=== PATIENT | male | born 1950 | race Caucasian/White ===

== ENCOUNTER 2017-05-14 10:03 | Inpatient (IN) | payer OTHER, MEDICARE ==
[2017-05-14] VITALS (10 sets, daily range): BP systolic 140–175; BP diastolic 68–91; PULSE 52–66; RESP 17–20; TEMP 97.6–98.1; O2SAT 96–99
[~2017-05-14] VITALS: Ht 172.7 cm; Wt 81.2 kg
[2017-05-14] MEDS ORDERED: BUPR100T4 PO (10:21)
[2017-05-14] MEDS ORDERED: SYMB160A INH (10:24)
--- NOTE | 2017-05-14 11:09 | PD ---
HPI Chief Complaint: Syncope/Near-Syncope Time Seen by Provider: 10:41 Travel History International Travel<30 days: No Contact w/Intl Traveler<30days: No Traveled to known affect area: No History of Present Illness HPI 67yo M with PMH of COPD presents to the ED with syncopal episode today. Pt said he felt sob and lightheaded so he went to get his symbicort but next thing he knew he woke up on the floor. His said he passed out and wanted to call ambulance but he refused. Then it happened again and he passed out and said he was shaking a little before he went down. Then he agreed to go to the ED. Pt has been having these episodes of lightheadedness that would last 30 seconds and was told to follow up with rodbuster but has not done so. Denies any fever, chest pain, n/v, abdominal pain, focal weakness or numbness. Pt does not feel sob right now. PFSH Past Medical History COPD: Yes Social History Alcohol Use: Yes Tobacco Use: Yes (5 per day) Substance Use: No Allergies-Medications (Allergen,Severity, Reaction): Coded Allergies: No Known Allergies (Unverified , 05/14/17) Reported Meds & Prescriptions Reported Meds & Active Scripts Active Reported Symbicort Inh (Budesonide/Formoterol Fumarate) 160-4.5 Mcg/Act Aero 1 Puff INH Q12HR Bupropion HCl 100 Mg Tab 300 Mg PO DAILY Review of Systems Except as stated in HPI: all other systems reviewed are Neg Physical Exam Narrative GENERAL: 67yo M not in distress. SKIN: Focused skin assessment warm/dry. HEAD: Atraumatic. Normocephalic. EYES: Pupils equal and round. No scleral icterus. No injection or drainage. ENT: No nasal bleeding or discharge. Mucous membranes pink and moist. NECK: Trachea midline. No JVD. CARDIOVASCULAR: Irregular with frequent pauses. No murmur. RESPIRATORY: No accessory muscle use. Clear to auscultation. Breath sounds equal bilaterally. GASTROINTESTINAL: Abdomen soft, non-tender, nondistended. Hepatic and splenic margins not palpable. MUSCULOSKELETAL: No obvious deformities. No clubbing. No cyanosis. No edema. NEUROLOGICAL: Awake and alert. No obvious cranial nerve deficits. Motor grossly within normal limits. Normal speech. PSYCHIATRIC: Appropriate mood and affect; insight and judgment normal. Data Data Last Documented VS Vital Signs Date Time Temp Pulse Resp B/P (MAP) Pulse Ox O2 Delivery O2 Flow Rate FiO2 05/14/17 12:20 66 19 165/79 (107) 98 Nasal Cannula 2.00 Orders Orders Electrocardiogram (05/14/17 10:54) Basic Metabolic Panel (Bmp) (05/14/17 10:54) Complete Blood Count With Diff (05/14/17 10:54) Magnesium (Mg) (05/14/17 10:54) Ckmb (Isoenzyme) Profile (05/14/17 10:54) Troponin I (05/14/17 10:54) Act Partial Throm Time (Ptt) (05/14/17 10:54) Prothrombin Time / Inr (Pt) (05/14/17 10:54) Urinalysis - C+S If Indicated (05/14/17 10:54) Chest, Single Ap (05/14/17 10:54) Ct Brain W/O Iv Contrast(Rout) (05/14/17 ) CKMB (05/14/17 11:00) CKMB% (05/14/17 11:00) Admit Order (Ed Use Only) (05/14/17 13:42) Labs Laboratory Tests Test 05/14/17 11:00 05/14/17 12:30 White Blood Count 7.1 TH/MM3 Red Blood Count 4.18 MIL/MM3 Hemoglobin 14.2 GM/DL Hematocrit 42.1 % Mean Corpuscular Volume 100.6 FL Mean Corpuscular Hemoglobin 33.9 PG Mean Corpuscular Hemoglobin Concent 33.7 % Red Cell Distribution Width 12.4 % Platelet Count 205 TH/MM3 Mean Platelet Volume 7.0 FL Neutrophils (%) (Auto) 56.6 % Lymphocytes (%) (Auto) 27.4 % Monocytes (%) (Auto) 12.1 % Eosinophils (%) (Auto) 3.4 % Basophils (%) (Auto) 0.5 % Neutrophils # (Auto) 4.0 TH/MM3 Lymphocytes # (Auto) 1.9 TH/MM3 Monocytes # (Auto) 0.9 TH/MM3 Eosinophils # (Auto) 0.2 TH/MM3 Basophils # (Auto) 0.0 TH/MM3 CBC Comment DIFF FINAL Differential Comment Prothrombin Time 11.2 SEC Prothromb Time International Ratio 1.1 RATIO Activated Partial Thromboplast Time 23.6 SEC Blood Urea Nitrogen 13 MG/DL Creatinine 0.63 MG/DL Random Glucose 94 MG/DL Calcium Level 8.2 MG/DL Magnesium Level 2.2 MG/DL Sodium Level 139 MEQ/L Potassium Level 4.4 MEQ/L Chloride Level 104 MEQ/L Carbon Dioxide Level 29.0 MEQ/L Anion Gap 6 MEQ/L Estimat Glomerular Filtration Rate 126 ML/MIN Total Creatine Kinase 167 U/L Creatine Kinase MB 4.0 NG/ML Troponin I LESS THAN 0.02 NG/ML Urine Color YELLOW Urine Turbidity CLEAR Urine pH 6.5 Urine Specific [place] 1.005 Urine Protein NEG mg/dL Urine Glucose (UA) NEG mg/dL Urine Ketones NEG mg/dL Urine Occult Blood NEG Urine Nitrite NEG Urine Bilirubin NEG Urine Urobilinogen LESS THAN 2.0 MG/DL Urine Leukocyte Esterase NEG Urine WBC 1 /hpf Urine Mucus FEW /lpf Microscopic Urinalysis Comment CULT NOT INDICATED MDM Medical Decision Making Medical Screen Exam Complete: Yes Emergency Medical Condition: Yes Interpretation(s) EKG: Sinus bradycardia at 54bpm. LAD. PAC and then a pause with p wave and no QRS. Differential Diagnosis Sick sinus syndrome vs. AV block vs. ICH vs. seizure Narrative Course 67yo M with syncope x2 today. Pt has arrhythmia on ekg monitor tech and pauses on his EKG. Labs reviewed, no leukocytosis. Troponin negative. UA showed no leukocyte. CXR negative. CXR negative. Will admit on telemetry for further evaluation of syncope and cardiology consult. Discussed with Dr. Thompson and accepted to her service. Diagnosis Primary Impression: Syncope Qualified Codes: R55 - Syncope and collapse Admitting Information Admitting Physician Requests: Admit Huong Pratt DO May 14, 2017 11:09
[2017-05-14 11:22] LABS: BASOPHIL % 0.5 % (0.0-2.0); EOSINOPHIL # 0.2 TH/MM3 (0-0.4); EOSINOPHIL % 3.4 % (0.0-4.0); HEMATOCRIT 42.1 % (39.0-51.0); HEMO FLAGS DIFF FINAL; LYMPH % 27.4 % (9.0-44.0); LYMPHOCYTE # 1.9 TH/MM3 (1.0-4.8); MEAN CELL VOLUME 100.6 FL (80.0-100.0); MEAN CORPUSCULAR HEMOGLOBIN 33.9 PG (27.0-34.0); MEAN CORPUSCULAR HGB CONC 33.7 % (32.0-36.0); MONO % 12.1 % (0.0-8.0); NEUT % 56.6 % (16.0-70.0); PLATELET COUNT 205 TH/MM3 (150-450); RED BLOOD COUNT 4.18 MIL/MM3 (4.50-5.90); RED CELL DISTRIBUTION WIDTH 12.4 % (11.6-17.2); WHITE BLOOD COUNT 7.1 TH/MM3 (4.0-11.0)
[2017-05-14 11:33] LABS: ANION GAP 6 MEQ/L (5-15); BLOOD UREA NITROGEN 13 MG/DL (7-18); CHLORIDE 104 MEQ/L (98-107); GLOMERULAR FILTRATION RATE 126 ML/MIN (>89); MAGNESIUM 2.2 MG/DL (1.5-2.5); POTASSIUM 4.4 MEQ/L (3.5-5.1); SODIUM (NA) 139 MEQ/L (136-145)
[2017-05-14 11:34] LABS: APTT (PATIENT) 23.6 SEC (24.3-30.1); INTERNATIONAL NORMALIZED RATIO 1.1 RATIO; PROTHROMBIN TIME - PATIENT 11.2 SEC (9.8-11.6)
--- NOTE | 2017-05-14 11:36 | RADRPT ---
EXAM DATE/TIME: 05/14/2017 11:19 [facility] COMPARISON: No previous studies available for comparison. INDICATIONS : Syncopal episode this morning, dizziness. RADIATION DOSE: 32.93 CTDIvol (mGy) MEDICAL HISTORY : Chronic obstructive pulmonary disease. SURGICAL HISTORY : None. ENCOUNTER: Initial ACUITY: 1 day PAIN SCALE: 0/10 LOCATION: Bilateral cranial TECHNIQUE: Multiple contiguous axial images were obtained of the head. Using automated exposure control and adj ustment of the mA and/or kV according to patient size, radiation dose was kept as low as reasonably a chievable to obtain optimal diagnostic quality images. DICOM format image data is available electro nically for review and comparison. FINDINGS: CEREBRUM: The ventricles are normal for age. No evidence of midline shift, mass lesion, hemorrhage or acute in farction. No extra-axial fluid collections are seen. POSTERIOR FOSSA: The cerebellum and brainstem are intact. The 4th ventricle is midline. The cerebellopontine angle i s unremarkable. EXTRACRANIAL: The visualized portion of the orbits is intact. SKULL: The calvaria is intact. No evidence of skull fracture. CONCLUSION: No acute disease. Krishan Patel MD on May 14, 2017 at 11:33 Board Certified Radiologist. This report was verified electronically.
[2017-05-14 11:37] LABS: CREATINE KINASE 167 U/L (39-308)
--- NOTE | 2017-05-14 12:14 | RADRPT ---
EXAM DATE/TIME: 05/14/2017 11:16 [facility] COMPARISON: No previous studies available for comparison. INDICATIONS : Patient complains of shortness of breath. Near syncopal episode. MEDICAL HISTORY : None. SURGICAL HISTORY : None. ENCOUNTER: Initial ACUITY: 1 day PAIN SCORE: 0/10 LOCATION: chest FINDINGS: A single view of the chest demonstrates the lungs to be symmetrically aerated without evidence of mas s, infiltrate or effusion. The cardiomediastinal contours are unremarkable. Degenerative changes are noted throughout the thoracic spine. CONCLUSION: 1. No acute cardiopulmonary disease. 2. Degenerative changes throughout the thoracic spine. Krishan Patel MD on May 14, 2017 at 12:11 Board Certified Radiologist. This report was verified electronically.
[2017-05-14 12:50] LABS: BLOOD, URINE NEG (NEG); COMMENT (UR) CULT NOT INDICATED; CULTURE IF INDICATED CULT NOT INDICATED; GLUCOSE,URINE NEG (NEG); KETONE, URINE NEG (NEG); MUCUS URINE FEW /lpf (OCC); NITRITE,URINE NEG (NEG); PH, URINE 6.5 (5.0-8.5); URINE COLOR YELLOW (YELLW/STRAW)
[2017-05-14] MEDS ORDERED: NALOXONE HCL 0.4 MG/ML AMP IV PUSH PRN (13:45)
[2017-05-14] MEDS ORDERED: BISACODYL 10 MG SUPP RECTAL PRN (13:45)
[2017-05-14] MEDS ORDERED: SODIUM CHLORIDE 0.9% FLUSH 10 ML FLUSH IV FLUSH PRN ×2 (13:45→14:45)
[2017-05-14] MEDS ORDERED: LACTULOSE SYRUP 20 GM/30 ML CUP PO PRN (13:45)
[2017-05-14] MEDS ORDERED: SENNOSIDES 8.6 MG TAB PO PRN (13:45)
[2017-05-14] MEDS ORDERED: MAGNESIUM HYDROXIDE SUSP 30 ML CUP PO PRN (13:45)
[2017-05-14] MEDS ORDERED: ACETAMINOPHEN 325 MG TAB PO PRN (13:45)
[2017-05-14] MEDS ORDERED: ONDANSETRON HCL 4 MG/2 ML VIAL IVP PRN (13:45)
[2017-05-14] MEDS ORDERED: PILL SPLITTER OTHER PRN (14:15)
[2017-05-14] MEDS ORDERED: SODIUM CHLOR 0.9% 1000 ML INJ 1,000 ML IV SCH (14:30)
--- NOTE | 2017-05-14 14:43 | HHI.HP ---
[facility] Service [facility] Primary Care Physician Dakota Nolen M.D. Admission Diagnosis Syncope, arrhythmia Diagnoses: Chief Complaint: sob, lightheadedness Travel History International Travel<30 Days: No Contact w/Intl Traveler <30 Da: No Traveled to Known Affected Are: No History of Present Illness 67yo M with PMH of COPD presents to the ED with syncopal episode today. Pt said he felt sob and lightheaded so he went to get his symbicort but next thing he knew he woke up on the floor. His said he passed out and wanted to call ambulance but he refused. Then it happened again and he passed out and said he was shaking a little before he went down. Then he agreed to go to the ED. Pt has been having these episodes of lightheadedness that would last 30 seconds and was told to follow up with nurse informaticist but has not done so. Denies any fever, chest pain, n/v, abdominal pain, focal weakness or numbness. Pt does not feel sob right now. Review of Systems Except as stated in HPI: all other systems reviewed are Neg Past Family Social History Past Medical History COPD, anxiety Past Surgical History bilateral hip surgery 11 years ago Reported Medications Reported Meds & Active Scripts Active Reported Symbicort Inh (Budesonide/Formoterol Fumarate) 160-4.5 Mcg/Act Aero 1 Puff INH Q12HR Bupropion HCl 100 Mg Tab 150 Mg PO BID Allergies: Coded Allergies: No Known Allergies (Unverified , 05/14/17) Family History Mother ovarian cancer Social History Tobacco use: 1 ppd x 50 years , cut down to 4-5 cig per day EtOH use 3-4 beers daily No illicit drug use Physical Exam Vital Signs Vital Signs Date Time Temp Pulse Resp B/P (MAP) Pulse Ox O2 Delivery O2 Flow Rate FiO2 05/14/17 14:31 70 14 153/70 (97) 99 Nasal Cannula 2.00 05/14/17 14:11 96 21 05/14/17 13:53 98.1 05/14/17 12:20 66 19 165/79 (107) 98 Nasal Cannula 2.00 05/14/17 10:23 98 2.00 05/14/17 10:22 63 20 147/90 (109) 99 Nasal Cannula 2.00 05/14/17 10:14 58 20 147/90 (109) 98 Physical Exam GENERAL: This is a well-nourished, well-developed patient, in no apparent distress. SKIN: No rashes, ecchymoses or lesions. Cool and dry. HEAD: Atraumatic. Normocephalic. No temporal or scalp tenderness. EYES: Pupils equal round and reactive. Extraocular motions intact. No scleral icterus. No injection or drainage. ENT: Nose without bleeding, purulent drainage or septal hematoma. Throat without erythema, tonsillar hypertrophy or exudate. Uvula midline. Airway patent. NECK: Trachea midline. No JVD or lymphadenopathy. Supple, nontender, no meningeal signs. CARDIOVASCULAR: Regular rate and rhythm without murmurs, gallops, or rubs. RESPIRATORY: Clear to auscultation. Breath sounds equal bilaterally. No wheezes , rales, or rhonchi. GASTROINTESTINAL: Abdomen soft, non-tender, nondistended. No hepato-splenomegaly , or palpable masses. No guarding. MUSCULOSKELETAL: Extremities without clubbing, cyanosis, or edema. No joint tenderness, effusion, or edema noted. No calf tenderness. Negative Homans sign bilaterally. NEUROLOGICAL: Awake and alert. Cranial nerves II through XII intact. Motor and sensory grossly within normal limits. Five out of 5 muscle strength in all muscle groups. Normal speech. Laboratory Laboratory Tests Test 05/14/17 11:00 05/14/17 12:30 White Blood Count 7.1 Red Blood Count 4.18 Hemoglobin 14.2 Hematocrit 42.1 Mean Corpuscular Volume 100.6 Mean Corpuscular Hemoglobin 33.9 Mean Corpuscular Hemoglobin Concent 33.7 Red Cell Distribution Width 12.4 Platelet Count 205 Mean Platelet Volume 7.0 Neutrophils (%) (Auto) 56.6 Lymphocytes (%) (Auto) 27.4 Monocytes (%) (Auto) 12.1 Eosinophils (%) (Auto) 3.4 Basophils (%) (Auto) 0.5 Neutrophils # (Auto) 4.0 Lymphocytes # (Auto) 1.9 Monocytes # (Auto) 0.9 Eosinophils # (Auto) 0.2 Basophils # (Auto) 0.0 CBC Comment DIFF FINAL Differential Comment Prothrombin Time 11.2 Prothromb Time International Ratio 1.1 Activated Partial Thromboplast Time 23.6 Blood Urea Nitrogen 13 Creatinine 0.63 Random Glucose 94 Calcium Level 8.2 Magnesium Level 2.2 Sodium Level 139 Potassium Level 4.4 Chloride Level 104 Carbon Dioxide Level 29.0 Anion Gap 6 Estimat Glomerular Filtration Rate 126 Total Creatine Kinase 167 Creatine Kinase MB 4.0 Troponin I LESS THAN 0.02 Urine Color YELLOW Urine Turbidity CLEAR Urine pH 6.5 Urine Specific [place] 1.005 Urine Protein NEG Urine Glucose (UA) NEG Urine Ketones NEG Urine Occult Blood NEG Urine Nitrite NEG Urine Bilirubin NEG Urine Urobilinogen LESS THAN 2.0 Urine Leukocyte Esterase NEG Urine WBC 1 Urine Mucus FEW Microscopic Urinalysis Comment CULT NOT INDICATED Result Diagram: 05/14/17 1100 05/14/17 1100 Imaging Last Impressions Chest X-Ray 05/14/17 1054 Signed Impressions: Service Date/Time: Sunday, May 14, 2017 11:16 - CONCLUSION: 1. No acute cardiopulmonary disease. 2. Degenerative changes throughout the thoracic spine. Krishan Patel MD Head CT 05/14/17 0000 Signed Impressions: Service Date/Time: Sunday, May 14, 2017 11:19 - CONCLUSION: No acute disease. Kirshan Patel MD Caprini VTE Risk Assessment Caprini VTE Risk Assessment: Mod/High Risk (score >= 2) Caprini Risk Assessment Model Point Value = 1 Point Value = 2 Point Value = 3 Point Value = 5 Age 41-60 Minor surgery BMI > 25 kg/m2 Swollen legs Varicose veins or History of unexplained or recurrent spontaneous Oral contraceptives or hormone replacement Sepsis (< 1 month) Serious lung disease, including pneumonia (< 1 month) Abnormal pulmonary function Acute myocardial infarction Congestive heart failure (< 1 month) History of inflammatory bowel disease Medical patient at bed rest Age 61-74 Arthroscopic surgery Major open surgery (> 45 min) Laparoscopic surgery (> 45 min) Malignancy Confined to bed (> 72 hours) Immobilizing plaster cast Central venous access Age >= 75 History of VTE Family history of VTE Factor V Leiden Prothrombin [id number] Lupus anticoagulant Anticardiolipin antibodies Elevated serum homocysteine Heparin-induced thrombocytopenia Other congenital or acquired thrombophilia Stroke (< 1 month) Elective arthroplasty Hip, pelvis, or leg fracture Acute spinal cord injury (< 1 month) Prophylaxis Regimen Total Risk Factor Score Risk Level Prophylaxis Regimen 0-1 Low Early ambulation 2 Moderate Order ONE of the following: *Sequential Compression Device (SCD) *Heparin 5000 units SQ BID 3-4 Higher Order ONE of the following medications: *Heparin 5000 units SQ TID *Enoxaparin/Lovenox 40 mg SQ daily (WT < 150 kg, CrCl > 30 mL/min) *Enoxaparin/Lovenox 30 mg SQ daily (WT < 150 kg, CrCl > 10-29 mL/min) *Enoxaparin/Lovenox 30 mg SQ BID (WT < 150 kg, CrCl > 30 mL/min) AND/OR *Sequential Compression Device (SCD) 5 or more Highest Order ONE of the following medications: *Heparin 5000 units SQ TID (Preferred with Epidurals) *Enoxaparin/Lovenox 40 mg SQ daily (WT < 150 kg, CrCl > 30 mL/min) *Enoxaparin/Lovenox 30 mg SQ daily (WT < 150 kg, CrCl > 10-29 mL/min) *Enoxaparin/Lovenox 30 mg SQ BID (WT < 150 kg, CrCl > 30 mL/min) AND *Sequential Compression Device (SCD) Assessment and Plan Assessment and Plan 67yo M with syncope x2 today. Pt has arrhythmia on classroom monitor and pauses on his EKG. Labs reviewed, no leukocytosis. Troponin negative. UA showed no leukocyte. CXR negative. CXR negative. Syncope Arrhythmia R/o seizures EtOH use . Tobaccoism. Counselled. Watch for withdrawals. Start Librium, rally pack. EKG: Sinus bradycardia at 54bpm. LAD. PAC and then a pause with p wave and no QRS Check ECHO, carotid US, Holter, monitor on telemetry Consult cardiology DVT ppx lovenox, SCD/TEDs Discussed Condition With Patient, nurse, ED physician Physician Certification 2 Midnight Certification Type: Admission for Inpatient Services Order for Inpatient Services The services are ordered in accordance with Medicare regulations or non- Medicare payer requirements, as applicable. In the case of services not specified as inpatient-only, they are appropriately provided as inpatient services in accordance with the 2-midnight benchmark. Estimated LOS (days): 3 days is the estimated time the patient will need to remain in the hospital, assuming treatment plan goals are met and no additional complications. Post-Hospital Plan: Home Cosma,Thao MD May 14, 2017 14:43
[2017-05-14] MEDS ORDERED: chlordiazePOXIDE 25 MG CAP PO PRN (14:45)
[2017-05-14] MEDS ORDERED: LORazepam 1 MG TAB PO PRN (14:45)
[2017-05-14] MEDS ORDERED: FLUMAZENIL 0.5 MG/5 ML VIAL IV PUSH PRN (14:45)
[2017-05-14] MEDS ORDERED: LORazepam 2 MG TAB PO PRN (14:45)
[2017-05-14] MEDS: ENOXAPARIN SODIUM 40 MG/0.4 ML SYRINGE SQ SCH (15:00)
--- NOTE | 2017-05-14 15:05 | RADRPT ---
EXAM DATE/TIME: 05/14/2017 14:28 [facility] COMPARISON: No previous studies available for comparison. INDICATIONS : Syncope. MEDICAL HISTORY : Chronic obstructive pulmonary disease. SURGICAL HISTORY : Bilateral hip surgery. ENCOUNTER: Initial ACUITY: 1 day PAIN SCORE: 0/10 LOCATION: Bilateral neck PEAK SYSTOLIC VELOCITIES (cm/sec): ICA/CCA RATIO: Right: 1.2 Left: 1.2 ICA: Right: 64.7 Left: 75.1 CCA: Right: 54.8 Left: 62.0 ECA: Right: 59.2 Left: 63.3 VERTEBRAL: Right: 48.2 antegrade Left: 37.3 antegrade Elevated flow velocities and ICA/CCA ratios have been found to correlate with increased degrees of vessel stenosis, calculated as percentage of diameter relative to a normal segment of distal ICA/CCA FINDINGS: RIGHT CAROTID: No significant stenosis is visualized. The waveforms are within normal limits. LEFT CAROTID: No significant stenosis is visualized. The waveforms are within normal limits. VERTEBRAL ARTERIES: Antegrade flow is seen in both vertebral arteries. MISCELLANEOUS: None. CONCLUSION: 1. Minimal bilateral carotid plaque without significant flow-limiting stenosis. 2. Antegrade vertebral artery flow bilaterally. Juni Chowdhury MD on May 14, 2017 at 15:01 Board Certified Radiologist. This report was verified electronically.
--- NOTE | 2017-05-14 15:45 | EKG ---
Date Performed: 05/14/2017 Time Performed: 10:16:37 PTAGE: 67 years EKG: SINUS BRADYCARDIA WITH FIRST DEGREE AV BLOCK WITH NONCONDUCTED P WAVE, RIGHT BUNDLE BRANCH BLOCK, LEFT ANTERIOR FASCICULAR BLOCK, POSSIBLE SEPTAL MYOCARDIAL INFARCTION ABNORMAL ECG NO PREVIOUS TRACING DOCTOR: Derek Gonsalves Interpretating Date/Time 05/14/2017 15:44:11
[2017-05-14] MEDS ORDERED: ENALAPRILAT 2.5 MG/2 ML VIAL IV PUSH PRN (16:30)
[2017-05-14] MEDS ORDERED: hydrALAZINE HCL 10 MG TAB PO PRN (16:30)
--- NOTE | 2017-05-14 16:52 | MB ---
cc: ANDERSONMINI DATE OF CONSULTATION 05/14/17 REASON FOR CONSULTATION Syncope. HISTORY OF PRESENT ILLNESS The patient is a 67-year-old white male with a history of COPD who was in his usual state of health up until this morning when while walking to get his Symbicort inhaler, as he was feeling increased shortness of breath, he lost consciousness after a brief period of lightheadedness. He thinks he was unconscious for only a couple seconds. His insisted that he go to the emergency room, but he declined at that time. However, as he walked across the kitchen to get his Symbicort inhaler he once again lost consciousness while standing. Again the he thinks he lost consciousness for just a couple seconds. When he regained consciousness, there was no disorientation. There was also no preceding pain, nausea, diaphoresis. He denies chest pains, change in chronic dyspnea, palpitations, pedal edema, paroxysmal nocturnal dyspnea. Since coming into the hospital, he feels "just fine". PAST MEDICAL HISTORY COPD. MEDICATIONS Cardiac medications at home none. ALLERGIES NO KNOWN DRUG ALLERGIES. FAMILY HISTORY Noncontributory. SOCIAL HISTORY The patient smokes about three to six cigarettes per day. He used to smoke two packs of cigarettes per day. He drinks occasional alcohol. REVIEW OF SYSTEMS As in the history of present illness otherwise negative or noncontributory. He also denies headache, abdominal pain, melena, dyspepsia, bright red blood per rectum, cough, hemoptysis. PHYSICAL EXAMINATION VITAL SIGNS: On physical examination his blood pressure 153/70 with a pulse of 70, respirations 14. GENERAL: He is a well-developed, well-nourished white male in no acute distress. HEENT: Jugular venous pressure is normal. Carotid pulses are 2+ bilaterally and without bruits. CHEST: Examination of the chest reveals diminished breath sounds diffusely. CARDIAC: On cardiac examination he has a bradycardic regular rhythm without S3, S4 or murmur. ABDOMEN: He has a soft, nontender abdomen. Bowel sounds are present. There is no definite hepatosplenomegaly. EXTREMITIES: No clubbing, cyanosis or edema. LABORATORY DATA Normal CBC, normal basic metabolic profile. Troponin less than 0.02. CARDIOLOGY STUDIES EKG shows sinus bradycardia with right bundle-branch block, left anterior fascicular block, first-degree AV block, probable non conducted P-wave. IMAGING STUDIES Chest x-ray shows no acute disease. IMPRESSION Two syncopal episodes today in this 67-year-old white male with a history of COPD. I suspect his syncopal episodes were most likely due to prolonged pauses. He has evidence by EKG for considerable conduction system disease including "trifascicular block" with first-degree AV block, right bundle-branch block, left anterior fascicular block. In addition, on EKG and again on monitoring here on the floor he has demonstrated non-conducted P-waves. I have recommended he undergo permanent pacemaker implantation. At this time, however, he is very reluctant to undergo this procedure. He would like additional monitoring to verify that he is indeed having prolonged pauses. RECOMMENDATIONS 1. Continue to monitor overnight. 2. Should he remains stable overnight, consider discharge in the morning and we will set him up for a 3-week monitor as an outpatient. MD SHIRA Brito/ /4:02 PM /4:35 PM ANITA
[2017-05-14] MEDS: THIAMINE INJ 500 MG in SODIUM CHLOR 0.9% 250 ML INJ 250 ML IV SCH (18:00)
--- NOTE | 2017-05-14 18:14 | MG ---
cc: MAYDA WALSH M.D. Lab No: Date: 05/14/2017 Age: 67 Sex: M Race: REQUESTING PHYSICIAN: Dr. Thompson. HISTORY: An EEG was obtained on this 67-year-old patient being evaluated for syncope. DESCRIPTION OF THE RECORDING: The patient is described as awake. This EEG shows monotonous 9 to 10 per second mid-amplitude alpha rhythms posteriorly. The background is reactive. Photic stimulation disclosed some mild driving response. Hyperventilation was not performed. There are beta rhythms frontally. INTERPRETATION: Normal awake EEG. Mayda Walsh MD [facility] /5:53 PM /6:03 PM
[2017-05-14] MEDS ORDERED: THIA100 PO (18:21)
--- NOTE | 2017-05-14 18:21 | HHI.DCPOC ---
Discharge Care Plan Diagnosis: (1) Syncope Your Health Problems Are: Difficulty with ADL Exercise Tolerance Goals to Promote Your Health * To prevent worsening of your condition and complications * To maintain your health at the optimal level Directions to Meet Your Goals Take your medications as prescribed Follow your dietary instruction Follow activity as directed Keep your appointments as scheduled Take your immunizations and boosters as scheduled If your symptoms worsen call your PCP, if no PCP go to Urgent Care Center or Emergency Room Smoking is Dangerous to Your Health. Avoid second hand smoke Call the 24-hour hour crisis hotline for domestic abuse at Mauricio Mcgregor MD May 14, 2017 18:21
[2017-05-14] MEDS ORDERED: RESP: ALBUTEROL 2.5 MG/3 ML NEB (PRN) NEB (18:30)
[2017-05-14] MEDS ORDERED: ENALAPRILAT 1.25 MG/ML VIAL IV PUSH PRN (18:30)
[2017-05-14] MEDS: SODIUM CHLORIDE 0.9% FLUSH 10 ML FLUSH IV FLUSH SCH (21:00)
[2017-05-14] MEDS: buPROPion HCL 100 MG TAB PO SCH (21:00)
[2017-05-14] MEDS ORDERED: SODIUM CHLORIDE 0.9% FLUSH 10 ML FLUSH IV FLUSH SCH (21:00)
[2017-05-14] MEDS: DOCUSATE SODIUM 50 MG/SENNA 8.6 MG TAB PO SCH (21:00)
[2017-05-14] MEDS: BUDESONIDE-FORMOTEROL 160/4.5 MCG INHALER INH SCH (21:00)
[2017-05-14] MEDS: ALBUTEROL SULFATE 90 MCG/ACT HFA 8 GM INHALER INH PRN (21:39)
[2017-05-15] VITALS (14 sets, daily range): BP systolic 132–159; BP diastolic 60–73; PULSE 49–67; RESP 17–20; TEMP 97.6–98.4; O2SAT 93–99
[2017-05-15] MEDS: THIAMINE INJ 500 MG in SODIUM CHLOR 0.9% 250 ML INJ 250 ML IV SCH ×2 (00:56→05:49)
[2017-05-15] MEDS: DOCUSATE SODIUM 50 MG/SENNA 8.6 MG TAB PO SCH ×2 (07:55→21:00)
[2017-05-15] MEDS: BUDESONIDE-FORMOTEROL 160/4.5 MCG INHALER INH SCH ×2 (08:00→21:00)
[2017-05-15] MEDS: buPROPion HCL 100 MG TAB PO SCH ×2 (08:00→21:00)
[2017-05-15] MEDS: SODIUM CHLORIDE 0.9% FLUSH 10 ML FLUSH IV FLUSH SCH ×2 (08:00→21:00)
[2017-05-15] MEDS: FOLIC ACID 1 MG TAB PO SCH (08:00)
[2017-05-15] MEDS: THIAMINE HCL 100 MG TAB PO SCH (08:00)
[2017-05-15] MEDS: MULTIVITAMINS/MINERALS THERAPEUTIC TAB PO SCH (08:00)
[2017-05-15 09:29] LABS: AUTOMATED NEUTROPHIL # 5.5 TH/MM3 (1.8-7.7); BASOPHIL # 0.1 TH/MM3 (0-0.2); BASOPHIL % 1.5 % (0.0-2.0); EOSINOPHIL # 0.1 TH/MM3 (0-0.4); EOSINOPHIL % 1.9 % (0.0-4.0); HEMATOCRIT 41.2 % (39.0-51.0); HEMO FLAGS DIFF FINAL; LYMPH % 16.7 % (9.0-44.0); LYMPHOCYTE # 1.3 TH/MM3 (1.0-4.8); MEAN CELL VOLUME 100.3 FL (80.0-100.0); MEAN CORPUSCULAR HEMOGLOBIN 33.9 PG (27.0-34.0); MEAN CORPUSCULAR HGB CONC 33.8 % (32.0-36.0); NEUT % 72.9 % (16.0-70.0); PLATELET COUNT 193 TH/MM3 (150-450); RED BLOOD COUNT 4.11 MIL/MM3 (4.50-5.90); RED CELL DISTRIBUTION WIDTH 12.6 % (11.6-17.2); WHITE BLOOD COUNT 7.5 TH/MM3 (4.0-11.0)
--- NOTE | 2017-05-15 11:34 | PD.CARD.PN ---
Subjective Subjective Remarks Feels good. No dizziness, recurrent syncope, CP, dyspnea. Objective Medications No cardiac medications. Current Medications Medications (Trade) Dose Ordered Sig/Srikanth Route Start Time Stop Time Status Last Admin (Tylenol) 650 mg Q4H PRN PO 05/14/17 13:45 (Zofran Inj) 4 mg Q6H PRN IVP 05/14/17 13:45 (Lovenox Inj) 40 mg Q24H SQ 05/14/17 15:00 (Narcan Inj) 0.4 mg UNSCH PRN IV PUSH 05/14/17 13:45 (Tiffany-Colace) 1 tab BID PO 05/14/17 21:00 (Milk Of Magnesia Liq) 30 ml Q12H PRN PO 05/14/17 13:45 (Senokot) 17.2 mg Q12H PRN PO 05/14/17 13:45 (Dulcolax Supp) 10 mg DAILY PRN RECTAL 05/14/17 13:45 (Lactulose Liq) 30 ml DAILY PRN PO 05/14/17 13:45 (Symbicort 160-4.5 Mcg Inh) 1 puff Q12HR INH 05/14/17 21:00 05/15/17 08:00 (Wellbutrin) 150 mg BID PO 05/14/17 21:00 05/15/17 08:00 (Pill Splitter) 1 ea UNSCH PRN OTHER 05/14/17 14:15 (NS Flush) 2 ml UNSCH PRN IV FLUSH 05/14/17 14:45 (NS Flush) 2 ml BID IV FLUSH 05/14/17 21:00 (Folate) 1 mg DAILY PO 05/15/17 09:00 05/20/17 08:59 05/15/17 08:00 (Vitamin B1) 100 mg DAILY PO 05/15/17 09:00 05/15/17 08:00 (Theragran M Tab) 1 tab DAILY PO 05/15/17 09:00 05/20/17 08:59 05/15/17 08:00 (Romazicon Inj) 0.2 mg Q1M PRN IV PUSH 05/14/17 14:45 (Ativan) 1 mg Q4H PRN PO 05/14/17 14:45 (Ativan) 2 mg Q2H PRN PO 05/14/17 14:45 (Vasotec Inj) 2.5 mg Q6H PRN IV PUSH 05/14/17 16:30 (Apresoline) 10 mg Q6HR PRN PO 05/14/17 16:30 (Vasotec Inj) 1.25 mg Q6H PRN IV PUSH 05/14/17 18:30 (Proair Hfa Inh) 2 puff QID PRN INH 05/14/17 20:15 05/14/17 21:39 Sodium Chloride 1,000 ml @ 125 mls/hr Q8H IV 05/16/17 04:00 Cefazolin Sodium 1000 mg/Sodium Chloride 100 ml @ 0 mls/hr ONCE IV 05/16/17 10:00 05/16/17 10:01 Vancomycin HCl 1000 mg/Sodium Chloride 250 ml @ 0 mls/hr ONCE IV 05/16/17 10:00 05/16/17 10:01 (Betadine 5% Antisepsis Kit) 1 applic ONCE TOPICAL 05/15/17 20:00 05/16/17 19:59 (Bactroban Nasal 2% Oint) 1 applic ONCE EACH NARE 05/15/17 20:00 05/16/17 19:59 (Chlorhexidine 2% Cloth) 1 pack ONCE TOPICAL 05/15/17 20:00 05/16/17 19:59 Vital Signs / I&O Vital Signs Date Time Temp Pulse Resp B/P (MAP) Pulse Ox O2 Delivery O2 Flow Rate FiO2 05/15/17 08:06 98.1 55 20 152/73 (99) 95 05/15/17 08:00 Room Air 05/15/17 04:00 97.6 61 17 139/67 (91) 97 05/15/17 04:00 Room Air 05/15/17 03:49 55 05/15/17 00:59 21 05/15/17 00:00 97.6 67 17 153/65 (94) 95 05/15/17 00:00 61 05/15/17 00:00 Room Air 05/14/17 23:58 66 05/14/17 20:00 97.8 52 17 140/68 (92) 97 05/14/17 19:44 58 05/14/17 15:30 97.6 65 20 175/91 (119) 96 12/16/17 14:31 70 14 153/70 (97) 99 Nasal Cannula 2.00 05/14/17 14:11 96 21 05/14/17 13:53 98.1 05/14/17 12:20 66 19 165/79 (107) 98 Nasal Cannula 2.00 I/O 05/14/17 05/14/17 05/14/17 05/15/17 05/15/17 05/15/17 06:59 14:59 22:59 06:59 14:59 22:59 Intake Total 859 ml Output Total 1300 ml Balance -441 ml Intake Oral 340 ml IV Total 519 ml Output Urine Total 1300 ml # Bowel Movements 1 Physical Exam GENERAL: Well developed, well nourished. No acute distress. HEENT: Jugular venous pressure is normal. CHEST: Lungs clear to auscultation bilaterally. Unlabored respiratory effort. CARDIAC: Bradycardic regular rhythm without S3, S4, or murmur. ABDOMEN: Soft, nontender, no hepatosplenomegaly. Bowel sounds present. EXTREMITIES: No clubbing, cyanosis, or edema. Laboratory Laboratory Tests Test 05/14/17 12:30 05/15/17 09:03 05/15/17 09:05 Urine Color YELLOW Urine Turbidity CLEAR Urine pH 6.5 Urine Specific [place] 1.005 Urine Protein NEG mg/dL Urine Glucose (UA) NEG mg/dL Urine Ketones NEG mg/dL Urine Occult Blood NEG Urine Nitrite NEG Urine Bilirubin NEG Urine Urobilinogen LESS THAN 2.0 MG/DL Urine Leukocyte Esterase NEG Urine WBC 1 /hpf Urine Mucus FEW /lpf Microscopic Urinalysis Comment CULT NOT INDICATED White Blood Count 7.5 TH/MM3 Red Blood Count 4.11 MIL/MM3 Hemoglobin 13.9 GM/DL Hematocrit 41.2 % Mean Corpuscular Volume 100.3 FL Mean Corpuscular Hemoglobin 33.9 PG Mean Corpuscular Hemoglobin Concent 33.8 % Red Cell Distribution Width 12.6 % Platelet Count 193 TH/MM3 Mean Platelet Volume 7.1 FL Neutrophils (%) (Auto) 72.9 % Lymphocytes (%) (Auto) 16.7 % Monocytes (%) (Auto) 7.0 % Eosinophils (%) (Auto) 1.9 % Basophils (%) (Auto) 1.5 % Neutrophils # (Auto) 5.5 TH/MM3 Lymphocytes # (Auto) 1.3 TH/MM3 Monocytes # (Auto) 0.5 TH/MM3 Eosinophils # (Auto) 0.1 TH/MM3 Basophils # (Auto) 0.1 TH/MM3 CBC Comment DIFF FINAL Differential Comment Blood Urea Nitrogen 9 MG/DL Creatinine 0.66 MG/DL Random Glucose 208 MG/DL Calcium Level 8.2 MG/DL Sodium Level 138 MEQ/L Potassium Level 4.0 MEQ/L Chloride Level 103 MEQ/L Carbon Dioxide Level 27.0 MEQ/L Anion Gap 8 MEQ/L Estimat Glomerular Filtration Rate 120 ML/MIN Assessment and Plan Problem List: (1) Syncope ICD Codes: R55 - Syncope and collapse Status: Acute Plan: Clinically stable. Monitoring overnight reveals few pauses, one up to 4.7 seconds. 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 Most likely etiology of his syncopal episodes is sick sinus syndrome resulting in prolonged pauses. REC pacemaker in am; patient agreeable to proceed, understands nature of procedure, risks Code Status full code Discussed Condition With patient Derek Gonsalves MD May 15, 2017 11:34
--- NOTE | 2017-05-15 14:36 | HHI.PR ---
Subjective Remarks Follow-up syncope. No recurrence. Telemetry shows few pauses longest up to 4.7 seconds. Patient agrees to proceed with pacemaker placement. Discussed with RN Objective Vitals Vital Signs Date Time Temp Pulse Resp B/P (MAP) Pulse Ox O2 Delivery O2 Flow Rate FiO2 05/15/17 12:06 98.4 49 20 132/60 (84) 95 05/15/17 08:06 98.1 55 20 152/73 (99) 95 05/15/17 08:00 Room Air 05/15/17 04:00 97.6 61 17 139/67 (91) 97 05/15/17 04:00 Room Air 05/15/17 03:49 55 05/15/17 00:59 21 05/15/17 00:00 97.6 67 17 153/65 (94) 95 05/15/17 00:00 61 05/15/17 00:00 Room Air 05/14/17 23:58 66 05/14/17 20:00 97.8 52 17 140/68 (92) 97 05/14/17 19:44 58 05/14/17 15:30 97.6 65 20 175/91 (119) 96 I/O 05/14/17 05/14/17 05/14/17 05/15/17 05/15/17 05/15/17 07:00 15:00 23:00 07:00 15:00 23:00 Intake Total 859 ml Output Total 1300 ml Balance -441 ml Intake Oral 340 ml IV Total 519 ml Output Urine Total 1300 ml # Bowel Movements 1 Result Diagram: 05/15/17 0903 05/15/17 0905 Imaging Last Impressions Chest X-Ray 05/14/17 1054 Signed Impressions: Service Date/Time: Sunday, May 14, 2017 11:16 - CONCLUSION: 1. No acute cardiopulmonary disease. 2. Degenerative changes throughout the thoracic spine. Krishan Patel MD Head CT 05/14/17 0000 Signed Impressions: Service Date/Time: Sunday, May 14, 2017 11:19 - CONCLUSION: No acute disease. Krishan Patel MD Carotid Artery Ultrasound 05/14/17 0000 Signed Impressions: Service Date/Time: Sunday, May 14, 2017 14:28 - CONCLUSION: 1. Minimal bilateral carotid plaque without significant flow-limiting stenosis. 2. Antegrade vertebral artery flow bilaterally. Juni Chowdhury MD Objective Remarks GENERAL: Well-developed, well-nourished in no distress SKIN: Warm and dry. HEAD: Atraumatic. Normocephalic. EYES: Pupils equal and round. No scleral icterus. No injection or drainage. ENT: No nasal bleeding or discharge. Mucous membranes pink and moist. NECK: Trachea midline. No JVD. CARDIOVASCULAR: Regular rate and rhythm. RESPIRATORY: No accessory muscle use. Clear to auscultation. Breath sounds equal bilaterally. GASTROINTESTINAL: Abdomen soft, non-tender, nondistended. MUSCULOSKELETAL: Extremities without clubbing, cyanosis, or edema. No obvious deformities. NEUROLOGICAL: Awake and alert. No obvious cranial nerve deficits. Motor grossly within normal limits. Five out of 5 muscle strength in the arms and legs. Normal speech. PSYCHIATRIC: Appropriate mood and affect; insight and judgment normal. A/P Problem List: (1) Syncope ICD Code: R55 - Syncope and collapse Status: Acute Assessment and Plan 67yo M with syncope x 2. Pt has arrhythmia on cardiac cath technologist and pauses on his EKG. Syncope likely secondary to sick sinus syndrome resulting to pauses. EEG and carotid ultrasound unremarkable. For permanent pacemaker placement. Telemetry. Follow-up echocardiogram EtOH use . Counseled. CIWA protocol COPD with Tobaccoism. Counselled. DVT ppx lovenox, SCD/TEDs Discharge Planning Not ready for discharge for permanent pacemaker Mauricio Mcgregor MD May 15, 2017 14:36
[2017-05-15] MEDS: ENOXAPARIN SODIUM 40 MG/0.4 ML SYRINGE SQ SCH (16:39)
[2017-05-15] MEDS ORDERED: POVIDONE IODINE 5% (ANTISEPSIS KIT) 4 APPLICATIONS TOPICAL SCH (20:00)
[2017-05-15] MEDS ORDERED: MUPIROCIN 2% OINT 1 APPLIC/GM SYR EACH NARE SCH (20:00)
[2017-05-15] MEDS ORDERED: CHLORHEXIDINE GLUCONATE 2 % 1 PACK (2 CLOTHS) TOPICAL SCH (20:00)
[2017-05-16] VITALS (14 sets, daily range): BP systolic 142–182; BP diastolic 66–98; PULSE 49–102; RESP 17–21; TEMP 97.7–98.3; O2SAT 93–95
[2017-05-16] MEDS: SODIUM CHLOR 0.9% 1000 ML INJ 1,000 ML IV SCH ×3 (02:42→20:00)
[2017-05-16] MEDS: BUDESONIDE-FORMOTEROL 160/4.5 MCG INHALER INH SCH ×2 (08:42→21:44)
[2017-05-16] MEDS: SODIUM CHLORIDE 0.9% FLUSH 10 ML FLUSH IV FLUSH SCH ×2 (08:45→21:44)
[2017-05-16] MEDS: FOLIC ACID 1 MG TAB PO SCH (08:47)
[2017-05-16] MEDS: MULTIVITAMINS/MINERALS THERAPEUTIC TAB PO SCH (08:47)
[2017-05-16] MEDS: DOCUSATE SODIUM 50 MG/SENNA 8.6 MG TAB PO SCH ×2 (08:47→21:00)
[2017-05-16] MEDS: THIAMINE HCL 100 MG TAB PO SCH (08:47)
--- NOTE | 2017-05-16 08:48 | ECHRPT ---
Indication: CONCLUSIONS Normal left ventricular size and wall thickness. The left ventricular systolic function is normal wi th an estimated ejection fraction in the range of 60-65%. Normal wall motion. There is trace tricuspid valve regurgitation. BP: / HR: Rhythm: MEASUREMENTS (Male / Female) Normal Values Technical Quality:Technically difficult study 2D ECHO LV Diastolic Diameter PLAX 5.2 cm 4.2 - 5.9 / 3.9 - 5.3 cm LV Systolic Diameter PLAX 4.0 cm IVS Diastolic Thickness 1.2 cm 0.6 - 1.0 / 0.6 - 0.9 cm LVPW Diastolic Thickness 1.1 cm 0.6 - 1.0 / 0.6 - 0.9 cm LV Relative Wall Thickness 0.4 RV Internal Dim ED PLAX 2.8 cm LVOT Diameter 2.2 cm M-MODE Aortic Root Diameter MM 3.9 cm LA Systolic Diameter MM 4.1 cm LA Ao Ratio MM 1.1 AV Cusp Separation MM 1.5 cm DOPPLER AV Peak Velocity 205.0 cm/s AV Peak Gradient 16.8 mmHg AV Mean Gradient 8.0 mmHg AV Velocity Time Integral 36.6 cm LVOT Peak Velocity 64.7 cm/s LVOT Peak Gradient 1.7 mmHg LVOT Velocity Time Integral 14.6 cm AV Area Cont Eq vti 1.5 cm AV Area Cont Eq pk 1.2 cm Mitral E Point Velocity 74.0 cm/s Mitral A Point Velocity 94.8 cm/s Mitral E to A Ratio 0.8 LV E' Lateral Velocity 9.8 cm/s Mitral E to LV E' Lateral Ratio 7.5 LV E' Septal Velocity 6.0 cm/s Mitral E to LV E' Septal Ratio 12.3 TR Peak Velocity 200.0 cm/s TR Peak Gradient 16.0 mmHg Right Atrial Pressure 10.0 mmHg Pulmonary Artery Systolic Pressu 26.0 mmHg Right Ventricular Systolic Press 26.0 mmHg FINDINGS LEFT VENTRICLE Normal left ventricular size and wall thickness. The left ventricular systolic function is normal wi th an estimated ejection fraction in the range of 60-65%. Normal wall motion. RIGHT VENTRICLE Normal right ventricular size and systolic function. LEFT ATRIUM The left atrial size is normal. RIGHT ATRIUM The right atrial size is normal. ATRIAL SEPTUM Normal atrial septal thickness without atrial level shunting by limited color doppler interrogation. AORTA The aortic root and proximal ascending aorta are normal in size on limited imaging. MITRAL VALVE Structurally normal mitral valve. Trace mitral valve regurgitation. AORTIC VALVE Trileaflet aortic valve. No aortic valve regurgitation. TRICUSPID VALVE Structurally normal tricuspid valve. There is trace tricuspid valve regurgitation. PULMONARY VALVE No pulmonary valve regurgitation or stenosis. VESSELS The inferior vena cava is normal in size. PERICARDIUM No pericardial effusion. Derek Gonsalves MD Edited by: [email or web address] Insurance Law Specialist (Electronically Signed) Final Date:15 May 2017 12:46 Amended: 16 May 2017 08:48
[2017-05-16] MEDS: buPROPion HCL 100 MG TAB PO SCH ×2 (08:49→21:32)
[2017-05-16] MEDS ORDERED: VANCOMYCIN INJ 1,000 MG in SODIUM CHLOR 0.9% 250 ML INJ 250 ML IV SCH (10:00)
--- NOTE | 2017-05-16 10:16 | HHI.PR ---
Subjective Remarks Follow-up syncope and sinus pauses. He did well overnight awaiting permanent placement replacement. Denies withdrawal symptoms. Seen with . Discussed with RN Objective Vitals Vital Signs Date Time Temp Pulse Resp B/P (MAP) Pulse Ox O2 Delivery O2 Flow Rate FiO2 05/16/17 08:05 98.1 78 19 156/76 (102) 94 05/16/17 07:59 Room Air 05/16/17 04:00 98.3 64 21 159/77 (104) 93 05/16/17 03:44 49 05/16/17 00:00 Room Air 05/16/17 00:00 98.1 54 21 163/75 (104) 94 05/15/17 23:45 51 05/15/17 21:20 52 05/15/17 21:20 53 05/15/17 20:00 Room Air 05/15/17 20:00 97.8 60 18 159/67 (97) 93 05/15/17 19:45 61 05/15/17 16:05 97.7 58 20 141/72 (95) 95 05/15/17 16:00 56 05/15/17 14:00 99 05/15/17 12:06 98.4 49 20 132/60 (84) 95 05/15/17 12:00 61 I/O 05/15/17 05/15/17 05/15/17 05/16/17 05/16/17 05/16/17 07:00 15:00 23:00 07:00 15:00 23:00 Intake Total 859 ml 1200 ml 1730 ml Output Total 1300 ml 1200 ml 1250 ml Balance -441 ml 0 ml 480 ml Intake Oral 340 ml 1200 ml 580 ml IV Total 519 ml 1150 ml Output Urine Total 1300 ml 1200 ml 1250 ml # Bowel Movements 1 2 1 Result Diagram: 05/15/17 0903 05/15/17 0905 Imaging Last Impressions Chest X-Ray 05/14/17 1054 Signed Impressions: Service Date/Time: Sunday, May 14, 2017 11:16 - CONCLUSION: 1. No acute cardiopulmonary disease. 2. Degenerative changes throughout the thoracic spine. Krishan Patel MD Head CT 05/14/17 0000 Signed Impressions: Service Date/Time: Sunday, May 14, 2017 11:19 - CONCLUSION: No acute disease. Krishan Patel MD Carotid Artery Ultrasound 05/14/17 0000 Signed Impressions: Service Date/Time: Sunday, May 14, 2017 14:28 - CONCLUSION: 1. Minimal bilateral carotid plaque without significant flow-limiting stenosis. 2. Antegrade vertebral artery flow bilaterally. Juni Chowdhury MD Objective Remarks GENERAL: Well-developed, well-nourished in no distress SKIN: Warm and dry. CARDIOVASCULAR: Regular rate and rhythm. RESPIRATORY: No accessory muscle use. Clear to auscultation. Breath sounds equal bilaterally. GASTROINTESTINAL: Abdomen soft, non-tender, nondistended. MUSCULOSKELETAL: Extremities without clubbing, cyanosis, or edema. No obvious deformities. NEUROLOGICAL: Awake and alert. No obvious cranial nerve deficits. Motor grossly within normal limits. Five out of 5 muscle strength in the arms and legs. Normal speech. Procedures PPM A/P Problem List: (1) Syncope ICD Code: R55 - Syncope and collapse Status: Acute Assessment and Plan 67yo M with syncope x 2. 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 Syncope likely secondary to sick sinus syndrome resulting to pauses. EEG, ECHO and carotid ultrasound unremarkable. For permanent pacemaker placement. Telemetry. EtOH use . Counseled. CIWA protocol COPD with Tobaccoism. Counselled. DVT ppx lovenox, SCD/TEDs Discharge Planning Discharge patient to home when cleared by cardiology Condition on discharge: Improved Regular Diet as tolerated Ad Reema activity nonweightbearing left upper extremity Rx written: Thiamine Follow-up with primary care physician and cardiology Mauricio Mcgregor MD May 16, 2017 10:16
[2017-05-16] MEDS ORDERED: ceFAZolin INJ 1,000 MG VIAL ONE (11:44)
[2017-05-16] MEDS ORDERED: VANCOMYCIN HCL 1000 MG VIAL ONE (11:44)
[2017-05-16] MEDS ORDERED: LIDOCAINE HCL 2% 50 ML VIAL ONE (11:45)
--- NOTE | 2017-05-16 13:37 | CATHPROC ---
[employer] HIS Report Study Information Study Number Admission Scheduled Start Study Start [id number] May 14 2017 1:45PM 05/16/2017 May 16 2017 11:36AM [place] Service Cardiac Pacer/ICD Admit Source Facility Department Other [facility] Physician and Clinical Staff Initial Derek Kumar Wire Chief Aditi Rocha,FILM EXAMINER TECH2 Wire Chief Torey CERVANTES, Amilcar Other Anesthesia, MANAGER OF NETWORK Recorder Najma Vernon BSRN Recorder Aditi Rocha,FILM EXAMINER TECH2 Scrub Mercedes Watkins,EXERCISE EQUIPMENT REPAIR TECHNICIAN TECH2 Procedures Performed Procedure Location (Site) Vessel Name Lead Insertion Venogram Subclav. Vein (Lft Subclavian Vein Equipment Time Information Security Associate Description Size Mfg Part Number Used/Scraped 12:58 BIOTRONIK LEAD, SOLIA 60 PRO MRI * [id number] Used 13:03 BIOTRONIK LEAD, SOLIA 60 53 PRO MRI * [id number] Used 13:10 BIOTRONIK PACEMAKER, ELUNA 8 DR-T DDDR [id number] Used [id number] 11:48 MEDLINE INDUSTRIES SUTURE, STRIP PLUS 1/2" * Used *[id number] 11:48 MEDLINE PACER ADHESIVE, MASTISOL 2/3CC 2/3CC 0523-48 Used 11:48 MEDLINE PACER DIETZ, LIMB * 2530 *[id number] Used [id number] 11:48 MEDLINE PACER PACK, PACER CUSTOM * Used *[id number] 11:48 MEDLINE PACER PEN, SKIN DUAL W/ RULER * Used *[id number] 11:48 Save22 MEDICAL PACER SAFE SHEATH, FR7, 13CM FR 7 [id number] Used 11:48 Save22 MEDICAL PACER SAFE SHEATH, FR7, 13CM FR 7 [id number] Used 12:20 Needle Sponge Count 2 22 Used 12:20 Needle Sponge Count 25 1 Used 12:20 Needle Sponge Count 4 4 Used 12:46 NYCOMED OMNIPAQUE, 350 MG, 50ML 50ML [id number] Used [id number] *[id number] SUTURE, 3-0 VICRYL [SH] ([id number]) SUTURE, 3-0 VICRYL [SH] ([id number]) SUTURE, 4-0 MONOCRYL [PS2] (Y496G) [id number] 11:48 [employer] BL[employer]ET,WARM AIR CCL * Used *[id number] [facility] PAD, ELECTROSURGICAL 11:48 * [id number] *[id number] Used SURGICAL GROUNDING ORANGE 1305-1397 11:48 [employer] KAMI. / * Used *47515 Equipment Model, Serial, Lot Number and Expiration Data Description Model Number Serial Number Lot Number Expiration Date LEAD, SOLIA 60 PRO MRI [id number] 03-29-2019 LEAD, SOLIA 60 53 PRO MRI [id number] 01-27-2019 PACEMAKER, ELUNA 8 ANANYA [id number] 12-27-2017 History: Current Medications Medication Dosage/Unit Route Frequency Last Date/Time Taken LOVENOX History: Allergies Allergy Reaction tape Labs Hgb (g/dl) Hct (%) RBC (MIL/MM3) WBC (l/cumm) Platelets (thousands) 11.60-17.00 35.00-51.00 4.00-5.90 4.00-11.00 150.00-450.00 13.9 41.2 4.1 7.5 193 Glucose (mg/dl) BUN (mg/dl) Creatinine (mg/dl) BUN:Creatinine (1:x) 74.00-106.00 7.00-18.00 0.50-1.30 10.00-20.00 208 9 0.6 15 Na (meq/l) K (meq/l) Cl (meq/l) CO2 (mmol/L) Ca (mg/dl) 136.00-145.00 3.50-5.10 98.00-107.00 21.00-32.00 8.50-10.10 138 4 103 27 8.2 INR (PTT:PT) 0.90-1.10 1.1 Troponin I (ng/ml) CPK (u/l) CPK-MB (ng/ML) 0.02-0.05 26.00-308.00 0.50-3.60 0.02 4 Not Drawn Medication Medication Total Dose (Bolus/Oral) Medication Total Dosage/Unit 2% XYLOCAINE 50 mL Medications (Bolus/Oral) Medication Time Given Dosage/Unit Administered By Reason 05/16/2017 12:44:51 2% XYLOCAINE 50 mL Derek Gonsalves As per physicians verbal order PM 50 mL 2% XYLOCAINE given in lab by Derek Gonsalves via Subcutaneous. Ordered by Derek Gonsalves. Reason: As per physicians verbal order. left upper chest Medication (Drip) Medication Time Given Dosage/Unit Concentration/Unit Diluent (ml) Solution 05/16/2017 12:10:03 IV Solutions 0 mL (IV) NaCl .9 PM IV Solutions given in lab by Anesthesia, MANAGER OF NETWORK in Left Antecubital via Peripheral IV. Pump/Drip Flow = 50 ml/hr using NaCl .9. Ordered by Derek Gonsalves. Reason: As per physicians verbal order. Initial Case Assessment Cardiovascular HR NIBP 62 166/86 Edema Present Skin color Skin None Normal Warm Dry Neurological State Oriented to time-place- Alert Moves all extremities person Respiration - General Respiration Rate SpO2 (%) (B/min) 20 97 Final Case Assessment Cardiovascular HR NIBP 60 128/68 Edema Present Skin color Skin None Normal Warm Dry Neurological State Oriented to time-place- Alert Moves all extremities person Respiration - General Respiration Rate SpO2 (%) (B/min) 20 99 Chronological Log Time Study Chronological Log 11:59:06 Patient arrived via Bed. 11:59:09 Patient Name, D.O.B, / Armband Verified By R.N. 12:00:52 Consent signed by the physician and the patient and verified by the [facility] staff. 12:00:53 Pre-op and post- op instructions given; patient acknowledges understanding of instructions. 12:00:56 Verbal Stimulation=2 Physical Stimulation=2 Airway=2 Respiration=2 TOTAL=10. (0=absent, 1=l imited, 2=present) 12:01:07 Anesthesia at bedside. Assumes care of patient. Chepe MANAGER OF NETWORK 12:09:31 Presedation assessment performed by Girls Tennis Coach RN. 12:09:33 Patient has been NPO for More than 6Hrs. 12:09:35 Skin Breakdown- none 12:09:44 Patient Warmer Placed on the Table. 12:09:46 Disposable Defibrillator Pads Placed On Patient. 12:09:51 Chitra Prominences Protected 12:09:54 A # 20 IV was noted in the Antecubital (left). Grade = ~GRADE~ IV Solutions given in lab by Anesthesia, MANAGER OF NETWORK in Left Antecubital via Peripheral IV. Pump/Drip Flow = 50 ml/hr using 12:10:03 NaCl .9. Ordered by Derek Gonsalves. Reason: As per physicians verbal order. 12:10:36 History and physical on the chart or being dictated. Assessment: Initial Case, HR=62 BPM, VSCK=200/86 mmhg, Edema=None, Color=Normal, Skin = Warm, D ry 12:10:38 Neurological: State=Alert, Ox3, CASTANEDA Respiration: Resp=20 B/min, SpO2=97 % 12:11:40 Table restraints applied according to hospital policy 12:11:42 Left Upper Chest Prepped Times Two. 12:11:50 Bovie ground pad applied to: belly 12:12:01 2% CHLORHEXIDINE GLUCONATE WASH AND NASAL SWIPE DONE PRIOR TO PROCEDURE. 12:12:16 Reference ECG taken First Sponge And Instrument Count Done by Mercedes Watkins, EXERCISE EQUIPMENT REPAIR TECHNICIAN TECH2. 12:19:33 Hypo's: 4, Sponges: 25, Bovie/scratch: 2 Sutures: 5, Blades: 2, Instruments: 26, Syveck Patches: 0 12:21:33 Left Upper Chest Prepped Times Two. 12:27:36 MD paged 12:37:45 MD responded 12:44:20 Immediate Presedation assesment performed by physician. Time Out. Correct patient, procedure, procedure equipment, site and side verified with physicia n present. Time 12:44:24 concurred by MD, individual staff and MANAGER OF NETWORK. Time Out #2 - Consents verified, patient in correct position, all results are labled and displa yed, safety precautions 12:44:31 taken, antibiotics administered. Time out concurred by MD, individual staff and MANAGER OF NETWORK in procedu re 12:44:37 Case Start 50 mL 2% XYLOCAINE given in lab by Derek Gonsalves via Subcutaneous. Ordered by Derek Gonsalves. Reas on: As per 12:44:51 physicians verbal order. left upper chest 12:46:07 The Subclav. Vein (Lft was manually injected with 15 cc's of contrast. OMNIPAQUE, 350 MG, 5 0ML 50ML used. 12:50:12 Vascular access was obtained in the Subclav. Vein (Lft. 12:50:40 Surgical Incision Made. 12:50:40 A pocket was created at the Lt. upper chest. 12:50:40 Two Raytec sponges in pocket. 12:53:43 Vascular access was obtained in the Subclav. Vein (Lft. 12:53:47 A SAFE SHEATH, FR7, 13CM FR 7 was advanced into the Subclav. Vein (Lft using the Percutaneo us technique. 12:56:41 A LEAD, SOLIA 60 PRO MRI * was inserted and positioned in the RV. 12:57:36 Lead placement verified under fluoroscopy 12:57:38 The RV lead impedance and threshold being tested. 12:57:40 The RV lead was sutured to the fascia. 13:01:30 A SAFE SHEATH, FR7, 13CM FR 7 was advanced into the Subclav. Vein (Lft using the Percutaneo us technique. 13:01:57 A LEAD, SOLIA 60 53 PRO MRI * was inserted and positioned in the RA. 13:03:16 Lead placement verified under fluoroscopy 13:03:26 The Atrial lead impedance and threshold is being tested. 13:06:10 The Atrial lead was sutured to the fascia. 13:09:29 Two sponges removed from pocket. 13:10:49 A PACEMAKER, ELUNA 8 DR-T DDDR was connected and placed in the pocket. Second Sponge And Instrument Count Done by Mercedes Watkins, EXERCISE EQUIPMENT REPAIR TECHNICIAN TECH2. 13:11:06 Hypo's: 4, Sponges: 25, Bovie/scratch: 2 Sutures: 5, Blades: 2, Instruments: 26, Syveck Patches: 0 13:11:49 The pocket was closed. 13:11:53 Implant Procedure was performed. 13:12:03 A PPM Implant . (Dual) 13:12:11 Bedside Report will be given. Final Sponge And Instrument Count Done by Torey CERVANTES, Amilcar. 13:16:46 Hypo's: 4, Sponges: 25, Bovie/scratch: 2 Sutures: 6, Blades: 2, Instruments: 26, Syveck Patches: 0 one suture added 13:20:24 CPCU called. Spoke to Kady 13:24:29 Steri-strips and a sterile dressing applied to site. 13:24:34 Case End 13:25:45 A sling was placed on the affected arm. Assessment: Final Case, HR=60 BPM, PYGK=832/68 mmhg, Edema=None, Color=Normal, Skin = Warm, Dr cueto 13:25:50 Neurological: State=Alert, Ox3, CASTANEDA Respiration: Resp=20 B/min, SpO2=99 % 13:26:20 No case complications noted. 13:26:37 Cine recording checked. 13:26:40 Implantable Device card placed in patient's chart. 13:26:47 Contrast Scanned 13:27:39 Defibrillator and ground pads removed. Skin intact. 13:45:00 Patient moved to stretcher and transported to CPCU in stable condition. End Study - Contrast Media Used In Study Contrast Total Opened (mL) Total Used (mL) Total Wasted (mL) Omnipaque 50 15 35 End Study - Maximum Contrast Load Max Contrast Load (mL) 673.5 End Study - Radiation Exposure Fluoro Time (minutes) 6.8 End Study - Patient Disposition Complications Transferred To Interventional Outcome No Telemetry Bed successful
--- NOTE | 2017-05-16 14:29 | MP ---
cc: RIVER BARRON M.D. DATE OF SURGERY 05/16/2017 PROCEDURE Dual-chamber permanent pacemaker implantation via the left subclavian vein. INDICATION Symptomatic sick sinus syndrome. OPERATIVE NOTES The patient was brought to the operating suite in a fasting state after having signed informed consent. The left upper chest was prepped and draped as per policy and anesthetized with 1% lidocaine. 15 cc of contrast was administered through a left arm peripheral IV to help localize the position of the left subclavian vein. A transverse incision was made inferior to the left clavicle and using blunt dissection a subcutaneous pocket was formed down to the pectoralis fascia. Using modified Seldinger technique central venous access was obtained twice via the left subclavian vein without difficulty. Over the more lateral guidewire a 7 Trinidadian sheath was placed and through this sheath a ventricular active fixation lead was introduced and its tip positioned in the right ventricular apex where good current of injury, stimulation threshold and sensitivity were verified. This lead was secured into place using 2-0 silk ties down to the pectoralis fascia. Over the remaining guidewire another 7 Trinidadian sheath was placed and through this sheath an atrial active fixation lead was introduced and its tip positioned in the right atrial appendage where suboptimal sensitivity was verified. It was moved to a more lateral position where good current of injury, stimulation threshold and sensitivity were verified. The lead was secured into place using 2-0 silk ties down to the pectoralis fascia. However, on closing of the pocket it was noted that the atrial lead had dislodged. It was repositioned in a slightly different position in the right atrial appendage where good current of injury, stimulation threshold and sensitivity were demonstrated. The lead was once again secured into place using 2-0 silk ties down to the pectoralis fascia. The leads were then connected to the pacemaker generator which is a [employer] Eluna device. The leads and the generator were placed back into the subcutaneous pocket which was closed using 3-0 Vicryl interrupted stitches in 2-3 layers to close the subcutaneous tissue and then 4-0 Monocryl running stitch to close the subcuticular tissue. Overlapping Steri-Strips and a pressure dressing were applied. There were no apparent immediate complications. CONCLUSIONS Successful dual-chamber permanent pacemaker implantation via the left subclavian vein using a [employer] Eluna pacemaker generator. MD SHIRA Brito/KEIKO /1:48 PM /2:21 PM MTDSteve
[2017-05-16] MEDS: traMADol HCL 50 MG TAB PO PRN ×2 (15:07→21:32)
[2017-05-16] MEDS: ENOXAPARIN SODIUM 40 MG/0.4 ML SYRINGE SQ SCH (15:15)
[2017-05-16] MEDS ORDERED: IODIXANOL 320 MG/ML 50 ML VIAL (for EPS) OTHER ONE (15:54)
--- NOTE | 2017-05-16 16:15 | RADRPT ---
EXAM DATE/TIME: 05/16/2017 14:59 [facility] COMPARISON: CHEST SINGLE AP, May 14, 2017, 11:16. INDICATIONS : Status post pacemaker. MEDICAL HISTORY : Chronic obstructive pulmonary disease. SURGICAL HISTORY : None. ENCOUNTER: Initial ACUITY: 1 day PAIN SCORE: 4/10 LOCATION: Bilateral chest FINDINGS: Pacer in good position. Lungs are clear. Heart and vascularity are normal. Portion of the skeleton unremarkable. CONCLUSION: Negative for pneumothorax. Pacer in good position Kojo Abarca MD FACR on May 16, 2017 at 16:12 Board Certified Radiologist. This report was verified electronically.
--- NOTE | 2017-05-16 16:19 | HM ---
Date Performed: 05/14/2017 Time Performed: 17:52:00 HOOKUP DATE: 05/14/17 05:52:00 PM Sat ANALYSIS START TIME: 05/14/2017 5:57:00 PM ANALYSIS END TIME: 05/15/2017 4:35:46 PM PATIENT AGE: 67 PATIENT HEIGHT PATIENT WEIGHT DRUG LIST PATIENT DIAGNOSIS: EMERGENT CARDIAC/SYNCOPE TEST NARRATIVE: The patient's average heart rate was 62 BPM. No episodes of tachycardia wer e noted. Heart rates less than 50 BPM were noted 8% of the time. 317 pauses exceeding 2.0 secon ds were noted. The longest pause of 4.4 seconds occurred at 04:22:10 PM Sun. 51 ventricular ectop ics, which represented < 1% of the total beat count, were noted. The highest ventricular ectopic bertrand quency occurred from 02:00 PM to 03:00 PM Sun. During this time 6 VE(s) occurred. Ventricular ectop ics were observed as 51 isolated beat(s) only. No couplets or runs were noted. 3403 supraventric ular ectopics, which represented 4% of the total beat count, were noted. The highest supraventricula r ectopic frequency occurred from 04:00 AM to 05:00 AM Sun. During this time 323 SVE(s) occurred. No episodes of ST depression (defined as -1.0 mm or more) were noted in channel 1. No episodes of ST depression (defined as -1.0 mm or more) were noted in channel 2. No episodes of ST depression (de fined as -1.0 mm or more) were noted in channel 3. NO DIARY RETURNED TEST INTERPRETATION: Patient was monitored for 22 hours and 39 minutes. Minimum heart rate 38, m aximum heart 93, average heart rate 62. Underlying rhythm was normal sinus. At 557am on Tuesday, the re was a PAC with a 2.2 second pause. Multiple pauses were noted. No particular time this rhythm was noted. At 09.20 am, there is a 2.9 second pause. Further 2.9 second pauses were noted. There were 51 PVCs and 3000 PACs. At 1133 am, there was a 3.6 second pause. At 1.59 am, there is a 3.7 second paus e. At 3.24am on Tuesday there is a 4.2 second pause with what appears to be a Mobitz type-2 block. 4.1 second block at 3.29am and at 3.32am, a 3.8 second pause. Multiple 3.7 second and 3.9 second pauses noted. Longest pause at 4.22 am was a 4.4 second pause. Conclusions Multiple significant pauses. Clin ical correlation strongly recommended. Patient has a history of syncope, suggesting the pauses may be the cause. Clinical correlation strongly recommended. Signed by : Lizzeth Garcia
[2017-05-16] MEDS ORDERED: TRAM50 PO (16:48)
[2017-05-16] MEDS ORDERED: THIAMINE INJ 500 MG in SODIUM CHLOR 0.9% 250 ML INJ 500 ML IV SCH (17:00)
[2017-05-17] VITALS (7 sets, daily range): BP systolic 128–131; BP diastolic 79–81; PULSE 66–118; RESP 17–20; TEMP 97.9–98.1; O2SAT 95–96
[2017-05-17] MEDS ORDERED: VANCOMYCIN INJ 1,000 MG in SODIUM CHLOR 0.9% 250 ML INJ 250 ML IV ONE (01:30)
[2017-05-17] MEDS: SODIUM CHLOR 0.9% 1000 ML INJ 1,000 ML IV SCH (04:00)
--- NOTE | 2017-05-17 07:36 | PD.CARD.PN ---
Subjective Subjective Remarks Feels good. No dizziness, recurrent syncope, CP, dyspnea, incisional pain. Objective Medications Item Value Date Time Enoxaparin Sodium 40 mg 05/14/17 1500 (Lovenox Inj) Q24H/SQ 05/16/17 1515 Current Medications Medications (Trade) Dose Ordered Sig/Srikanth Route Start Time Stop Time Status Last Admin (Tylenol) 650 mg Q4H PRN PO 05/14/17 13:45 (Zofran Inj) 4 mg Q6H PRN IVP 05/14/17 13:45 (Lovenox Inj) 40 mg Q24H SQ 05/14/17 15:00 05/16/17 15:15 (Narcan Inj) 0.4 mg UNSCH PRN IV PUSH 05/14/17 13:45 (Tiffany-Colace) 1 tab BID PO 05/14/17 21:00 05/16/17 08:47 (Milk Of Magnesia Liq) 30 ml Q12H PRN PO 05/14/17 13:45 (Senokot) 17.2 mg Q12H PRN PO 05/14/17 13:45 (Dulcolax Supp) 10 mg DAILY PRN RECTAL 05/14/17 13:45 (Lactulose Liq) 30 ml DAILY PRN PO 05/14/17 13:45 (Symbicort 160-4.5 Mcg Inh) 1 puff Q12HR INH 05/14/17 21:00 05/16/17 21:44 (Wellbutrin) 150 mg BID PO 05/14/17 21:00 05/16/17 21:32 (Pill Splitter) 1 ea UNSCH PRN OTHER 05/14/17 14:15 (NS Flush) 2 ml UNSCH PRN IV FLUSH 05/14/17 14:45 (NS Flush) 2 ml BID IV FLUSH 05/14/17 21:00 05/16/17 21:44 (Folate) 1 mg DAILY PO 05/15/17 09:00 05/20/17 08:59 05/16/17 08:47 (Vitamin B1) 100 mg DAILY PO 05/15/17 09:00 05/16/17 08:47 (Theragran M Tab) 1 tab DAILY PO 05/15/17 09:00 05/20/17 08:59 05/16/17 08:47 (Romazicon Inj) 0.2 mg Q1M PRN IV PUSH 05/14/17 14:45 (Ativan) 1 mg Q4H PRN PO 05/14/17 14:45 (Ativan) 2 mg Q2H PRN PO 05/14/17 14:45 (Vasotec Inj) 2.5 mg Q6H PRN IV PUSH 05/14/17 16:30 (Apresoline) 10 mg Q6HR PRN PO 05/14/17 16:30 (Vasotec Inj) 1.25 mg Q6H PRN IV PUSH 05/14/17 18:30 05/16/17 15:07 (Proair Hfa Inh) 2 puff QID PRN INH 05/14/17 20:15 05/14/17 21:39 Sodium Chloride 1,000 ml @ 125 mls/hr Q8H IV 05/16/17 04:00 05/16/17 08:50 (Ultram) 50 mg Q6HR PRN PO 05/16/17 14:00 05/16/17 21:32 Vital Signs / I&O Vital Signs Date Time Temp Pulse Resp B/P (MAP) Pulse Ox O2 Delivery O2 Flow Rate FiO2 05/17/17 07:00 118 05/17/17 06:00 66 05/17/17 03:00 82 05/17/17 03:00 97.9 82 20 131/79 (96) 96 05/16/17 23:00 76 05/16/17 23:00 98.1 76 20 142/66 (91) 94 05/16/17 22:35 18 05/16/17 20:02 21 05/16/17 19:00 67 05/16/17 19:00 97.8 67 18 142/72 (95) 95 05/16/17 19:00 Room Air 05/16/17 18:00 71 05/16/17 17:04 102 05/16/17 16:00 80 05/16/17 15:45 97.7 66 17 149/88 (108) 05/16/17 15:00 66 05/16/17 15:00 182/73 (109) 05/16/17 14:24 97.8 66 17 152/98 (116) 05/16/17 14:24 66 12/18/17 13:13 60 05/16/17 11:00 54 05/16/17 08:05 98.1 78 19 156/76 (102) 94 05/16/17 07:59 Room Air I/O 05/16/17 05/16/17 05/16/17 05/17/17 05/17/17 05/17/17 07:00 15:00 23:00 07:00 15:00 23:00 Intake Total 1730 ml 480 ml 490 ml Output Total 1250 ml 1250 ml 600 ml Balance 480 ml -770 ml -110 ml Intake Oral 580 ml 480 ml 240 ml IV Total 1150 ml 250 ml Output Urine Total 1250 ml 1250 ml 600 ml # Bowel Movements 1 Physical Exam GENERAL: Well developed, well nourished. No acute distress. HEENT: Jugular venous pressure is normal. CHEST: Lungs clear to auscultation. Pacer site clean, dry, intact, no hematoma or tenderness. CARDIAC: Bradycardic regular rhythm without S3, S4, or murmur. ABDOMEN: Soft, nontender, no hepatosplenomegaly. Bowel sounds present. EXTREMITIES: No clubbing, cyanosis, or edema. Imaging Last 24 hours Impressions Chest X-Ray 05/16/17 1328 Signed Impressions: Service Date/Time: Tuesday, May 16, 2017 14:59 - CONCLUSION: Negative for pneumothorax. Pacer in good position Kojo Abarca MD FACR Assessment and Plan Problem List: (1) Status post placement of cardiac pacemaker ICD Codes: Z95.0 - Presence of cardiac pacemaker Status: Acute Plan: Stable overnight s/p DDD pacemaker for symptomatic SSS. Pacer site OK. Pacer re-interrogation pending. REC await recheck of pacemaker by [employer] rep, discharge if pacer function normal, 1 week f/u in office, same home medications plus Levaquin 500 mg qd for 5 days Code Status full code Discussed Condition With patient Derek Gonsalves MD May 17, 2017 07:36
[2017-05-17] MEDS: SODIUM CHLORIDE 0.9% FLUSH 10 ML FLUSH IV FLUSH SCH (08:17)
[2017-05-17] MEDS: MULTIVITAMINS/MINERALS THERAPEUTIC TAB PO SCH (08:17)
[2017-05-17] MEDS: THIAMINE HCL 100 MG TAB PO SCH (08:17)
[2017-05-17] MEDS: buPROPion HCL 100 MG TAB PO SCH (08:17)
[2017-05-17] MEDS: FOLIC ACID 1 MG TAB PO SCH (08:17)
[2017-05-17] MEDS: BUDESONIDE-FORMOTEROL 160/4.5 MCG INHALER INH SCH (08:18)
[2017-05-17] MEDS: ALBUTEROL SULFATE 90 MCG/ACT HFA 8 GM INHALER INH PRN (08:18)
[2017-05-17] MEDS: DOCUSATE SODIUM 50 MG/SENNA 8.6 MG TAB PO SCH (08:18)
--- NOTE | 2017-05-17 10:41 | HHI.DS ---
Discharge Summary Admission Date May 14, 2017 at 13:45 Discharge Date: May 17, 2017 Admitting Diagnosis Syncope, arrhythmia (1) Syncope ICD Code: R55 - Syncope and collapse Diagnosis: Principal Status: Acute Procedures PPM Brief History - From Admission 67yo M with PMH of COPD presents to the ED with syncopal episode today. Pt said he felt sob and lightheaded so he went to get his symbicort but next thing he knew he woke up on the floor. His said he passed out and wanted to call ambulance but he refused. Then it happened again and he passed out and said he was shaking a little before he went down. Then he agreed to go to the ED. Pt has been having these episodes of lightheadedness that would last 30 seconds and was told to follow up with central supply aide but has not done so. Denies any fever, chest pain, n/v, abdominal pain, focal weakness or numbness. Pt does not feel sob right now. CBC/BMP: 05/15/17 0903 05/15/17 0905 Significant Findings Laboratory Tests Test 05/14/17 11:00 05/14/17 12:30 05/15/17 09:03 05/15/17 09:05 Red Blood Count 4.18 MIL/MM3 (4.50-5.90) 4.11 MIL/MM3 (4.50-5.90) Mean Corpuscular Volume 100.6 FL (80.0-100.0) 100.3 FL (80.0-100.0) Monocytes (%) (Auto) 12.1 % (0.0-8.0) Activated Partial Thromboplast Time 23.6 SEC (24.3-30.1) Calcium Level 8.2 MG/DL (8.5-10.1) 8.2 MG/DL (8.5-10.1) Creatine Kinase MB 4.0 NG/ML (0.5-3.6) Troponin I LESS THAN 0.02 NG/ML Urine Mucus FEW /lpf (OCC) Neutrophils (%) (Auto) 72.9 % (16.0-70.0) Random Glucose 208 MG/DL (74-106) Imaging Last Impressions Chest X-Ray 05/16/17 1328 Signed Impressions: Service Date/Time: Tuesday, May 16, 2017 14:59 - CONCLUSION: Negative for pneumothorax. Pacer in good position Kojo Abarca MD FACR Head CT 05/14/17 0000 Signed Impressions: Service Date/Time: Sunday, May 14, 2017 11:19 - CONCLUSION: No acute disease. Krishan Patel MD Carotid Artery Ultrasound 05/14/17 0000 Signed Impressions: Service Date/Time: Sunday, May 14, 2017 14:28 - CONCLUSION: 1. Minimal bilateral carotid plaque without significant flow-limiting stenosis. 2. Antegrade vertebral artery flow bilaterally. Juni Chowdhury MD PE at Discharge GENERAL: Well-developed, well-nourished in no distress SKIN: Warm and dry. CARDIOVASCULAR: Regular rate and rhythm. RESPIRATORY: No accessory muscle use. Clear to auscultation. Breath sounds equal bilaterally. GASTROINTESTINAL: Abdomen soft, non-tender, nondistended. MUSCULOSKELETAL: Extremities without clubbing, cyanosis, or edema. No obvious deformities. NEUROLOGICAL: Awake and alert. No obvious cranial nerve deficits. Motor grossly within normal limits. Five out of 5 muscle strength in the arms and legs. Normal speech. Hospital Course 67yo M with syncope x 2. Pt has arrhythmia on surveillance system monitor and pauses on his EKG. Syncope likely secondary to sick sinus syndrome. EEG, ECHO and carotid ultrasound unremarkable. Stable s/p permanent pacemaker placement. Telemetry. EtOH use . Counseled. CIWA protocol COPD with Tobaccoism. Counselled. DVT ppx lovenox, SCD/TEDs Pt Condition on Discharge: Stable Discharge Disposition: Discharge Home Discharge Time: <= 30 minutes Discharge Instructions DIET: Follow Instructions for: As Tolerated, No Restrictions Activities you can perform: Regular-No Restrictions Activities to Avoid: Driving Other Activity Instructions: BILLY ALMANZA Follow up Referrals: Cardiology - 1 Week PCP Follow-up - 2-3 Days New Medications: Thiamine HCl (Gnp Vitamin B-1) 100 Mg Tab 100 MG PO DAILY for Alcohol Detox, #30 TAB Tramadol (Ultram) 50 Mg Tab 50 MG PO Q6HR PRN for PAIN SCALE 4 TO 10, #28 TAB Continued Medications: Budesonide-Formoterol Inh (Symbicort Inh) 160-4.5 Mcg/Act Aero 1 PUFF INH Q12HR, #1 INHALER 0 Refills Bupropion HCl (Bupropion HCl) 100 Mg Tab 300 MG PO DAILY for Control Depression, #2 TAB 0 Refills Mauricio Mcgregor MD May 17, 2017 10:41
== END 2017-05-17 10:45 | disposition home or self-care (01) | DRG 244 ==
LOC: NEPE 10:03 → NEDA 13:45 → N04B 14:57 → HCIS 05-16 13:17 → HCPC 05-16 14:00
PROVIDERS: ADMIT Internal Medicine; ATTEND Internal Medicine
PROC: 02H63JZ Insertion of Pacemaker Lead into Right Atrium, Percutaneous Approach (ICD-10-PCS; 2017-05-16)
PROC: 02HK3JZ Insertion of Pacemaker Lead into Right Ventricle, Percutaneous Approach (ICD-10-PCS; 2017-05-16)
PROC: 0JH606Z Insertion of Pacemaker, Dual Chamber into Chest Subcutaneous Tissue and Fascia, Open Approach (ICD-10-PCS; principal; 2017-05-16 11:30)
DX: I49.5 Sick sinus syndrome (principal); J44.9 Chronic obstructive pulmonary disease, unspecified; Z72.89 Other problems related to lifestyle; F17.210 Nicotine dependence, cigarettes, uncomplicated; F41.9 Anxiety disorder, unspecified
CPT/HCPCS: 33208; 70450; 71010; 80048; 81001; 82550; 82552; 82948; 83735; 84484; 85025; 85610; 85730; 93005; 93225; 93226; 93306; 93880; 95819; C1785; C1898; J0690; J1650; J3370; J3411; J7030; J7050; Q9967

== ENCOUNTER 2017-07-09 00:21 | Emergency (ER) | payer OTHER ==
[~2017-07-09 00:21] MED LIST: BUPR100T4 PO; SYMB160A INH; THIA100 PO; TRAM50 PO
[2017-07-09 00:26] VITALS: BP 145/79; PULSE 68; RESP 25; TEMP 101; O2SAT 94
[2017-07-09] MEDS ORDERED: DILT0.05 PO (00:35)
[2017-07-09] MEDS ORDERED: methylPREDNISolone SOD SUCC 125 MG/2 ML VIAL IV PUSH ONE (00:45)
[2017-07-09] MEDS ORDERED: LEVOFLOXACIN 750 MG PREMIX INJ 150 ML IV ONE (00:45)
[2017-07-09] MEDS ORDERED: RESP: ALBUTEROL 2.5 MG/IPRATROPIUM 0.5 MG NEB (SCH) NEB ONE (00:45)
[2017-07-09 01:04] LABS: AUTOMATED NEUTROPHIL # 12.8 TH/MM3 (1.8-7.7); BASOPHIL # 0.1 TH/MM3 (0-0.2); BASOPHIL % 0.6 % (0.0-2.0); EOSINOPHIL # 0.2 TH/MM3 (0-0.4); EOSINOPHIL % 1.1 % (0.0-4.0); HEMATOCRIT 41.3 % (39.0-51.0); LYMPH % 4.4 % (9.0-44.0); LYMPHOCYTE # 0.6 TH/MM3 (1.0-4.8); MEAN CELL VOLUME 98.2 FL (80.0-100.0); MEAN CORPUSCULAR HEMOGLOBIN 33.2 PG (27.0-34.0); MEAN CORPUSCULAR HGB CONC 33.8 % (32.0-36.0); MEAN PLATELET VOLUME 6.8 FL (7.0-11.0); MONO % 6.4 % (0.0-8.0); MONOCYTE # 0.9 TH/MM3 (0-0.9); NEUT % 87.5 % (16.0-70.0); PLATELET COUNT 203 TH/MM3 (150-450); RED CELL DISTRIBUTION WIDTH 12.5 % (11.6-17.2); WHITE BLOOD COUNT 14.6 TH/MM3 (4.0-11.0)
[2017-07-09 01:19] LABS: ALBUMIN 3.6 GM/DL (3.4-5.0); ALT (GPT) 32 U/L (12-78); AST (GOT) 29 U/L (15-37); BICARBONATE 28.8 MEQ/L (21.0-32.0); BLOOD UREA NITROGEN 14 MG/DL (7-18); CALCIUM 8.6 MG/DL (8.5-10.1); CHLORIDE 101 MEQ/L (98-107); CREATININE 0.75 MG/DL (0.60-1.30); GLOMERULAR FILTRATION RATE 103 ML/MIN (>89); GLUCOSE,RANDOM 126 MG/DL (74-106); SODIUM (NA) 137 MEQ/L (136-145)
[2017-07-09 01:21] LABS: ALKALINE PHOSPHATASE 90 U/L (45-117); TOTAL BILIRUBIN ADULT 0.8 MG/DL (0.2-1.0); TOTAL PROTEIN 7.5 GM/DL (6.4-8.2)
[2017-07-09 01:51] VITALS: BP 151/65; PULSE 69; RESP 18; TEMP 100.8; O2SAT 97
--- NOTE | 2017-07-09 01:56 | RADRPT ---
EXAM DATE/TIME: 07/09/2017 01:17 [facility] COMPARISON: No previous studies available for comparison. INDICATIONS : Shortness of breath. MEDICAL HISTORY : Chronic obstructive pulmonary disease. SURGICAL HISTORY : None. ENCOUNTER: Initial ACUITY: 1 day PAIN SCORE: 0/10 LOCATION: Bilateral chest FINDINGS: PA and lateral views of the chest demonstrate the lungs to be symmetrically aerated without evidence of mass, infiltrate or effusion. The cardiomediastinal contours are unremarkable. Pacer leads in rig ht atrium and right ventricle. Osseous structures are intact. CONCLUSION: 1. No focal consolidation or effusion. Pacer leads in right atrium and right ventricle. Tortuous aort a. Will Mojica MD on July 09, 2017 at 1:52 Board Certified Radiologist. This report was verified electronically.
[2017-07-09] MEDS ORDERED: IPRA0.02 NEB (03:01)
[2017-07-09] MEDS ORDERED: LEVA750T9 PO (03:03)
[2017-07-09] MEDS ORDERED: PRED50 PO (03:04)
[2017-07-09] MEDS ORDERED: GUAISYP4 PO (03:08)
--- NOTE | 2017-07-09 03:08 | PD ---
HPI Chief Complaint: Respiratory Symptoms Time Seen by Provider: 00:31 Travel History International Travel<30 days: No Contact w/Intl Traveler<30days: No Traveled to known affect area: No History of Present Illness HPI Patient is a 67-year-old male with COPD getting worse shortness of breath for the last few days comes into ER and he is in apparent resp distress moderate. He is posturing leaning forward the sating to 88- 90% on room air.. patient is been taking albuterol at home without relief of his symptoms. Feel short of breath getting worse over the last few days. Cough and has Phelgm as well denies CP no dizziness, no diaphoresis , no syncope, PFSH Past Medical History Arthritis: Yes (generalized) Asthma: No Heart Rhythm Problems: Yes (arrthymia) Cancer: No Cardiovascular Problems: Yes High Cholesterol: No Chest Pain: No Congestive Heart Failure: No COPD: Yes Cerebrovascular Accident: No Endocrine: No Genitourinary: No Hypertension: Yes Implanted Vascular Access Dvce: Yes Musculoskeletal: Yes Reproductive: No Respiratory: Yes Migraines: No Seizures: No Sleep Apnea: No Influenza Vaccination: No Past Surgical History AICD: No Arteriovenous Shunt: No Insulin Pump: No Joint Replacement: Yes (one in each hip) Pacemaker: Yes Other Surgery: Yes Social History Alcohol Use: Yes Tobacco Use: Yes (5 per day) Substance Use: No Allergies-Medications (Allergen,Severity, Reaction): Coded Allergies: No Known Allergies (Unverified , 07/12/17) Reported Meds & Prescriptions Reported Meds & Active Scripts Active Levaquin (Levofloxacin) 750 Mg Tablet 750 Mg PO DAILY 5 Days Guaifenesin AC Liq (Guaifenesin-Codeine Liq) 100-10 Mg/5 Ml Syrp 10 Ml PO Q6H PRN Prednisone 50 Mg Tab 50 Mg PO DAILY Levaquin (Levofloxacin) 750 Mg Tablet 750 Mg PO DAILY Ipratropium Neb (Ipratropium Gaylord) 0.5 Mg/2.5 Ml Amp 0.5 Mg NEB Q6HR NEB PRN Gnp Vitamin B-1 (Thiamine HCl) 100 Mg Tab 100 Mg PO DAILY Reported Diltiazem ER 24 HR 180 Mg Lillian 180 Mg PO DAILY Symbicort Inh (Budesonide/Formoterol Fumarate) 160-4.5 Mcg/Act Aero 1 Puff INH Q12HR Bupropion HCl 100 Mg Tab 300 Mg PO DAILY Review of Systems Except as stated in HPI: all other systems reviewed are Neg General / Constitutional: Positive: Fever, Chills Respiratory: Positive: Cough, Shortness of Breath, Wheezing Physical Exam Narrative GENERAL: Wheeze leaning forward moderate respiratory distress SKIN: Warm and dry. HEAD: Atraumatic. Normocephalic. EYES: Pupils equal and round. No scleral icterus. No injection or drainage. ENT: No nasal bleeding or discharge. Mucous membranes pink and moist. NECK: Trachea midline. No JVD. CARDIOVASCULAR: Regular rate and rhythm. RESPIRATORY: +accessory muscle use diffuse wheeze GASTROINTESTINAL: Abdomen soft, non-tender, nondistended. Hepatic and splenic margins not palpable. MUSCULOSKELETAL: Extremities without clubbing, cyanosis, or edema. No obvious deformities. NEUROLOGICAL: Awake and alert. No obvious cranial nerve deficits. Motor grossly within normal limits. Five out of 5 muscle strength in the arms and legs. Normal speech. PSYCHIATRIC: Appropriate mood and affect; insight and judgment normal. Data Data Last Documented VS Vital Signs Date Time Temp Pulse Resp B/P (MAP) Pulse Ox O2 Delivery O2 Flow Rate FiO2 07/09/17 03:23 07/09/17 01:51 100.8 69 18 97 Nasal Cannula 2.00 Orders Orders Complete Blood Count With Diff (07/09/17 00:31) Comprehensive Metabolic Panel (07/09/17 00:31) Lipase (07/09/17 00:31) Chest, Pa & Lat (07/09/17 00:31) Albuterol-Ipratropium Neb (Duoneb Neb) (07/09/17 00:45) Levofloxacin 750 Mg Premix Inj (Levaquin (07/09/17 00:45) Methylprednisolone So Succ Inj (Solumedr (07/09/17 00:45) Blood Culture (07/09/17 00:34) Influenzae A/B Antigen (07/09/17 00:34) Ed Discharge Order (07/09/17 03:17) Labs Laboratory Tests Test 07/09/17 00:40 White Blood Count 14.6 TH/MM3 Red Blood Count 4.20 MIL/MM3 Hemoglobin 14.0 GM/DL Hematocrit 41.3 % Mean Corpuscular Volume 98.2 FL Mean Corpuscular Hemoglobin 33.2 PG Mean Corpuscular Hemoglobin Concent 33.8 % Red Cell Distribution Width 12.5 % Platelet Count 203 TH/MM3 Mean Platelet Volume 6.8 FL Neutrophils (%) (Auto) 87.5 % Lymphocytes (%) (Auto) 4.4 % Monocytes (%) (Auto) 6.4 % Eosinophils (%) (Auto) 1.1 % Basophils (%) (Auto) 0.6 % Neutrophils # (Auto) 12.8 TH/MM3 Lymphocytes # (Auto) 0.6 TH/MM3 Monocytes # (Auto) 0.9 TH/MM3 Eosinophils # (Auto) 0.2 TH/MM3 Basophils # (Auto) 0.1 TH/MM3 CBC Comment DIFF FINAL Differential Comment Blood Urea Nitrogen 14 MG/DL Creatinine 0.75 MG/DL Random Glucose 126 MG/DL Total Protein 7.5 GM/DL Albumin 3.6 GM/DL Calcium Level 8.6 MG/DL Alkaline Phosphatase 90 U/L Aspartate Amino Transf (AST/SGOT) 29 U/L Alanine Aminotransferase (ALT/SGPT) 32 U/L Total Bilirubin 0.8 MG/DL Sodium Level 137 MEQ/L Potassium Level 4.2 MEQ/L Chloride Level 101 MEQ/L Carbon Dioxide Level 28.8 MEQ/L Anion Gap 7 MEQ/L Estimat Glomerular Filtration Rate 103 ML/MIN Lipase 91 U/L MDM Medical Decision Making Medical Screen Exam Complete: Yes Emergency Medical Condition: Yes Differential Diagnosis COPD exacerbation upper respiratory infection reactive airway asthma attack pneumonia bronchitis Narrative Course Patient is given 3 duo nebs Solu-Medrol 125 Levaquin 750 he feels much better once to go home I am writing him a prescription for Atrovent to add to his albuterol at home I am giving him Levaquin 750 by mouth 5 days and follow-up as an outpatient I'm giving him prednisone 50 daily for 4 days. Instructed to return immediately to ER if her has worsening symptoms inspite of new rx treatemmtns , an d patient agree with D/C plan and return if needed other follow up as outpt . in 24 hrs Diagnosis Primary Impression: COPD exacerbation Patient Instructions: COPD (Chronic Obstructive Pulmonary Disease) (ED), General Instructions Scripts Guaifenesin-Codeine Liq (Guaifenesin AC Liq) 100-10 Mg/5 Ml Syrp 10 ML PO Q6H Y for COUGH, #1 BOTTLE 0 Refills Prov: Shalom Stephens MD 07/09/17 Prednisone (Prednisone) 50 Mg Tab 50 MG PO DAILY, #5 TAB 0 Refills Prov: Shalom Stephens MD 07/09/17 Levofloxacin (Levaquin) 750 Mg Tablet 750 MG PO DAILY for Infection, #5 TAB 0 Refills Prov: Shalom Stephens MD 07/09/17 Ipratropium Neb (Ipratropium Neb) 0.5 Mg/2.5 Ml Amp 0.5 MG NEB Q6HR NEB Y for SHORTNESS OF BREATH, #120 NEBULE 0 Refills Prov: Shalom Stephens MD 07/09/17 Disposition: 01 DISCHARGE HOME Condition: Good Shalom Stephens MD Jul 09, 2017 03:08
== END 2017-07-09 03:35 | disposition home or self-care (01) ==
LOC: NEPE 00:21
DX: J44.1 Chronic obstructive pulmonary disease with (acute) exacerbation (principal); B95.62 Methicillin resistant Staphylococcus aureus infection as the cause of diseases classified elsewhere; I10 Essential (primary) hypertension; Z72.0 Tobacco use
CPT/HCPCS: 71046; 80053; 83690; 85025; 86403; 87040; 87186; 87205; 87804; 94664; 96374; 96375; 99284; J1956; J2930

== ENCOUNTER 2017-07-11 17:29 | Emergency (ER) | payer OTHER ==
[~2017-07-11 17:29] MED LIST changes: +DILT0.05 PO; +GUAISYP4 PO; +IPRA0.02 NEB; +LEVA750T9 PO; +PRED50 PO; -TRAM50 PO
[2017-07-11 17:32] VITALS: BP 136/84; PULSE 87; RESP 16; TEMP 98.4; O2SAT 95
--- NOTE | 2017-07-11 20:02 | PD ---
HPI Chief Complaint: Abnormal Results Time Seen by Provider: 17:34 Travel History International Travel<30 days: No Contact w/Intl Traveler<30days: No Traveled to known affect area: No History of Present Illness HPI 67-year-old male presents to emergency department because he was called from our department and instructed to return due to blood cultures positive. Patient states he feels great. He is currently taking Levaquin and states he is feeling much better. Denies any recent fever or chills. No chest or tightness. No difficulty breathing. Patient has no other symptoms to report. PFSH Past Medical History Arthritis: Yes (generalized) Asthma: No Heart Rhythm Problems: Yes (arrthymia) Cancer: No Cardiovascular Problems: Yes High Cholesterol: No Chest Pain: No Congestive Heart Failure: No COPD: Yes Cerebrovascular Accident: No Endocrine: No Genitourinary: No Hypertension: Yes Implanted Vascular Access Dvce: Yes Musculoskeletal: Yes Reproductive: No Respiratory: Yes Migraines: No Seizures: No Sleep Apnea: No Past Surgical History AICD: No Arteriovenous Shunt: No Insulin Pump: No Joint Replacement: Yes (one in each hip) Pacemaker: Yes Other Surgery: Yes Social History Alcohol Use: Yes Tobacco Use: Yes (5 per day) Substance Use: No Allergies-Medications (Allergen,Severity, Reaction): Coded Allergies: No Known Allergies (Unverified , 05/14/17) Reported Meds & Prescriptions Reported Meds & Active Scripts Active Guaifenesin AC Liq (Guaifenesin-Codeine Liq) 100-10 Mg/5 Ml Syrp 10 Ml PO Q6H PRN Prednisone 50 Mg Tab 50 Mg PO DAILY Levaquin (Levofloxacin) 750 Mg Tablet 750 Mg PO DAILY Ipratropium Neb (Ipratropium [place]) 0.5 Mg/2.5 Ml Amp 0.5 Mg NEB Q6HR NEB PRN Gnp Vitamin B-1 (Thiamine HCl) 100 Mg Tab 100 Mg PO DAILY Reported Diltiazem ER 24 HR 180 Mg Lillian 180 Mg PO DAILY Symbicort Inh (Budesonide/Formoterol Fumarate) 160-4.5 Mcg/Act Aero 1 Puff INH Q12HR Bupropion HCl 100 Mg Tab 300 Mg PO DAILY Review of Systems Except as stated in HPI: all other systems reviewed are Neg Physical Exam Narrative Well-nourished male patient, nontoxic-appearing in no acute distress. Even respirations. Regular rate and rhythm. No obvious deformity to the extremities. Data Data Last Documented VS Vital Signs Date Time Temp Pulse Resp B/P (MAP) Pulse Ox O2 Delivery O2 Flow Rate FiO2 07/11/17 17:32 98.4 87 16 136/84 (101) 95 MDM Medical Decision Making Medical Screen Exam Complete: Yes Emergency Medical Condition: Yes Medical Record Reviewed: Yes Differential Diagnosis Bacteremia versus contaminated specimen versus sepsis versus normal exam Narrative Course 67-year-old male presents to emergency department for evaluation after being contacted and told to return due to positive blood cultures. Both aerobic and anaerobic grew staph coag positive. Patient is currently on Levaquin. He appears nontoxic. Vital signs are stable. Initial physical exam is not concerning. Prior to being assigned a bed, patient chooses to leave. AMA: The risks of leaving against medical advice without further evaluation treatment were discussed with the patient. These risks include cardiac dysfunction, cardiac dysrhythmia, possible heart attack, possible stroke or . The patient indicated understanding of these risks and appeared to have the capacity to make this decision. Diagnosis Primary Impression: Positive blood cultures Disposition: 07 AGAINST MEDICAL ADVICE Condition: Stable Gita Arreaga JENIFFER Jul 11, 2017 20:02
[2017-07-12] MEDS ORDERED: LEVA750T9 PO (09:47)
== END 2017-07-11 20:03 | disposition left against medical advice (07) ==
LOC: NED 17:29
DX: Z53.21 Procedure and treatment not carried out due to patient leaving prior to being seen by health care provider (principal)
CPT/HCPCS: 99281

== ENCOUNTER 2017-07-12 09:11 | Emergency (ER) | payer OTHER ==
[~2017-07-12] VITALS: Ht 170.2 cm; Wt 84.0 kg
[2017-07-12 09:12] VITALS: BP 166/84; PULSE 92; RESP 18; TEMP 98.3; O2SAT 94
[2017-07-12] MEDS ORDERED: LEVA750T9 PO (09:47)
--- NOTE | 2017-07-12 09:52 | PD ---
HPI Chief Complaint: Abnormal Results Time Seen by Provider: 09:40 Travel History International Travel<30 days: No Contact w/Intl Traveler<30days: No Traveled to known affect area: No History of Present Illness HPI 67-year-old male presents the emergency department status post recent illness with COPD flare and possible sepsis. Patient was treated with Levaquin 750 mg daily for 5 days as well as 50 mg prednisone for 5 days. Patient was called due to his blood cultures growing out staph coag positive. Patient is here for reevaluation due to these findings. Patient states he feels 100% better compared to the other day. He he states his O2 sat when he arrived on the 10th his O2 saturation was 88% on room air. Currently it is 96%. Patient feels well. [facility] He has no known drug allergies. PFSH Past Medical History Arthritis: Yes (generalized) Asthma: No Heart Rhythm Problems: Yes (arrthymia) Cancer: No Cardiovascular Problems: Yes High Cholesterol: No Chest Pain: No Congestive Heart Failure: No COPD: Yes Cerebrovascular Accident: No Endocrine: No Genitourinary: No Hypertension: Yes Implanted Vascular Access Dvce: Yes Musculoskeletal: Yes Reproductive: No Respiratory: Yes Migraines: No Seizures: No Sleep Apnea: No Past Surgical History AICD: No Arteriovenous Shunt: No Insulin Pump: No Joint Replacement: Yes (one in each hip) Pacemaker: Yes Other Surgery: Yes Social History Alcohol Use: Yes Tobacco Use: Yes (5 per day) Substance Use: No Allergies-Medications (Allergen,Severity, Reaction): Coded Allergies: No Known Allergies (Unverified , 05/14/17) Reported Meds & Prescriptions Reported Meds & Active Scripts Active Levaquin (Levofloxacin) 750 Mg Tablet 750 Mg PO DAILY 5 Days Guaifenesin AC Liq (Guaifenesin-Codeine Liq) 100-10 Mg/5 Ml Syrp 10 Ml PO Q6H PRN Prednisone 50 Mg Tab 50 Mg PO DAILY Levaquin (Levofloxacin) 750 Mg Tablet 750 Mg PO DAILY Ipratropium Neb (Ipratropium [place]) 0.5 Mg/2.5 Ml Amp 0.5 Mg NEB Q6HR NEB PRN Gnp Vitamin B-1 (Thiamine HCl) 100 Mg Tab 100 Mg PO DAILY Reported Diltiazem ER 24 HR 180 Mg Lillian 180 Mg PO DAILY Symbicort Inh (Budesonide/Formoterol Fumarate) 160-4.5 Mcg/Act Aero 1 Puff INH Q12HR Bupropion HCl 100 Mg Tab 300 Mg PO DAILY Review of Systems Except as stated in HPI: all other systems reviewed are Neg General / Constitutional: No: Fever Eyes: No: Visual changes HENT: No: Headaches Cardiovascular: No: Chest Pain or Discomfort Respiratory: No: Shortness of Breath Gastrointestinal: No: Abdominal Pain Genitourinary: No: Dysuria Musculoskeletal: No: Pain Skin: No Rash Neurologic: No: Weakness Psychiatric: No: Depression Endocrine: No: Polydipsia Hematologic/Lymphatic: No: Easy Bruising Physical Exam Narrative GENERAL: Patient appears in no acute distress. Vital signs are stable. SKIN: Warm and dry. Normal color. Normal turgor. HEAD: Atraumatic. Normocephalic. EYES: Pupils equal and round. No scleral icterus. No injection or drainage. ENT: No nasal bleeding or discharge. Mucous membranes pink and moist. Pharynx is clear. Airway is patent. NECK: Trachea midline. Supple nontender. CARDIOVASCULAR: Regular rate and rhythm. No murmurs gallops or rubs RESPIRATORY: No accessory muscle use. Clear to auscultation. Breath sounds equal bilaterally. GASTROINTESTINAL: Abdomen soft, non-tender, nondistended. Hepatic and splenic margins not palpable. MUSCULOSKELETAL: Extremities without clubbing, cyanosis, or edema. No obvious deformities. NEUROLOGICAL: Awake and alert. No obvious cranial nerve deficits. Motor grossly within normal limits. Five out of 5 muscle strength in the arms and legs. Normal speech. PSYCHIATRIC: Appropriate mood and affect; insight and judgment normal. Data Data Last Documented VS Vital Signs Date Time Temp Pulse Resp B/P (MAP) Pulse Ox O2 Delivery O2 Flow Rate FiO2 07/12/17 09:12 98.3 92 18 166/84 (111) 94 Room Air MDM Medical Decision Making Medical Screen Exam Complete: Yes Emergency Medical Condition: Yes Medical Record Reviewed: Yes Differential Diagnosis COPD with exacerbation. Pneumonia. Sepsis. Positive blood cultures. Narrative Course Patient is medically stable at time of exam. Patient is discussed with Dr. Greco who feels the patient is appropriate for outpatient therapy. Patient will be continued on Levaquin 750 daily for a total of 10 days. He was given an additional 5 tablets prescription. Patient to continue prednisone as previously prescribed and [facility] Patient can return the emergency department if symptoms warrant. Diagnosis Primary Impression: COPD exacerbation Referrals: [facility] Patient Instructions: General Instructions Additional Instructions: Patient is discussed with Dr. Greco who feels the patient is appropriate for outpatient therapy. Patient will be continued on Levaquin 750 daily for a total of 10 days. He was given an additional 5 tablets prescription. Patient to continue prednisone as previously prescribed and follow with the [facility] as planned. Patient can return the emergency department if symptoms warrant. Scripts Levofloxacin (Levaquin) 750 Mg Tablet 750 MG PO DAILY for Infection for 5 Days, #5 TAB 0 Refills Prov: Ange Greco MD 07/12/17 Disposition: 01 DISCHARGE HOME Condition: Stable Benedicto Jeronimo Jul 12, 2017 09:52
--- NOTE | 2017-07-12 09:56 | PD ---
Physical Exam Date Seen by Provider: Jul 12, 2017 Narrative This patient was called yesterday and asked to return here because of positive blood cultures. Patient was seen here on July 09 for COPD exacerbation. His blood cultures were positive for MRSA. He was treated with Levaquin. Patient reports that he feels 100% better. Data Data Last Documented VS Vital Signs Date Time Temp Pulse Resp B/P (MAP) Pulse Ox O2 Delivery O2 Flow Rate FiO2 07/12/17 09:12 98.3 92 18 166/84 (111) 94 Room Air Orders Orders Ed Discharge Order (07/12/17 09:52) MDM Supervised Visit with [facility]ANG: Yes Narrative Course I, Dr. Greco, have reviewed the advance practice practitioner's documentation and am in agreement, met with the patient face to face, made the diagnosis, and the medical decision making was done by me. *My assessment and Findings: Patient is able to speak in complete sentences without any respiratory distress. He is afebrile. Oxygen saturation is in the mid to upper 90s. Please see Fox Jeronimo PA-C's note for results of laboratory and radiographic evaluation, ED course, final diagnosis and disposition Diagnosis Primary Impression: COPD exacerbation Referrals: [facility] Patient Instructions: General Instructions Additional Instruction: Patient is discussed with Dr. Greco who feels the patient is appropriate for outpatient therapy. Patient will be continued on Levaquin 750 daily for a total of 10 days. He was given an additional 5 tablets prescription. Patient to continue prednisone as previously prescribed and [facility]. Patient can return the emergency department if symptoms warrant. Scripts Levofloxacin (Levaquin) 750 Mg Tablet 750 MG PO DAILY for Infection for 5 Days, #5 TAB 0 Refills Prov: Ange Greco MD 07/12/17 Disposition: DISCHARGE HOME Condition: Stable Ange Greco MD Jul 12, 2017 09:56
== END 2017-07-12 10:04 | disposition home or self-care (01) ==
LOC: NEPD 09:11
DX: J44.1 Chronic obstructive pulmonary disease with (acute) exacerbation (principal); I10 Essential (primary) hypertension; R78.81 Bacteremia; Z72.0 Tobacco use
CPT/HCPCS: 99283

== ENCOUNTER 2017-09-06 07:50 | Inpatient (IN) | payer OTHER, MEDICARE ==
--- NOTE | 2017-09-05 13:11 | MH ---
cc: Derek Gonsalves MD DATE OF ADMISSION: 09/06/2017 HISTORY OF PRESENT ILLNESS: The patient is a 67-year-old white male with a history of COPD, pacemaker implant on 05/15/2017 for symptomatic sick sinus syndrome, paroxysmal atrial flutter, who is now admitted for extraction of his pacemaker system. The patient did have fairly recent MRSA bacteremia, which was effectively treated with antibiotics. However, he has continued to have some tenderness over his pacemaker site and he has been recommended by infectious disease risk and insurance consultant to extract the pacemaker system. The patient reports no change in chronic mild to moderate dyspnea on exertion. He denies chest pain, dizziness, syncope, near syncope, palpitations, pedal edema, paroxysmal nocturnal dyspnea. PAST MEDICAL HISTORY: 1. COPD. 2. Osteoarthritis. 3. Biotronik pacemaker implant, 05/15/2017. 4. Paroxysmal atrial flutter documented by pacemaker checks. PAST SURGICAL HISTORY: 1. Pacemaker implant. 2. Left hip replacement. 3. Right hip replacement. CARDIAC MEDICATIONS: 1. Aspirin 81 mg daily. 2. Furosemide 40 mg daily. 3. Metoprolol tartrate 50 mg b.i.d. 4. Potassium chloride 20 mEq daily. ALLERGIES: NO KNOWN DRUG ALLERGIES. FAMILY HISTORY: Noncontributory. SOCIAL HISTORY: The patient smokes about 4 cigarettes per day. He denies alcohol abuse. REVIEW OF SYSTEMS: As in the history of present illness, otherwise negative or noncontributory. PHYSICAL EXAMINATION: VITAL SIGNS: His blood pressure 140/80 with a pulse of 80, respirations 15. GENERAL: He is a well-developed, well-nourished white male, in no acute distress. NECK: Jugular venous pressure is normal. Carotid pulses are 2+ bilaterally and without bruits. CHEST: Reveals clear lungs larson. CARDIAC: He has a regular rhythm and rate without S3, S4, or murmur. There is mild tenderness, possibly slight warmth over the pacemaker site. ABDOMEN: He has a soft, nontender abdomen. Bowel sounds are present. There is no definite hepatosplenomegaly. EXTREMITIES: Reveals no clubbing, cyanosis or edema. 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 At this point, he has been recommended extraction of his pacemaker system with placement of a new system on the right side a few days later. The nature of this procedure and the potential risks have been outlined. He agrees to proceed. PLANS: 1. Pacemaker extraction on 09/06/2017, as well as placement of a temporary transvenous pacemaker. 2. In a few days, implant a new system on the right. MD SHIRA Brito/AKIN , 12:53 PM , 01:11 PM ANITA
[~2017-09-06] VITALS: Ht 172.7 cm; Wt 84.5 kg
[2017-09-06] VITALS (13 sets, daily range): BP systolic 120–136; BP diastolic 67–79; PULSE 70–77; RESP 13–59; TEMP 97.6–98.3; O2SAT 93–100
[2017-09-06] MEDS ORDERED: SODIUM CHLORID 0.9% 500 ML IV PRN (08:30)
[2017-09-06] MEDS ORDERED: CHLORHEXIDINE GLUCONATE 2 % 1 PACK (2 CLOTHS) TOPICAL SCH (08:30)
[2017-09-06] MEDS ORDERED: CHLORHEXIDINE GLUCONATE 2 % 1 PACK (2 CLOTHS) TOPICAL PRN (08:30)
[2017-09-06] MEDS ORDERED: METOPROLOL TARTRATE 25 MG TAB PO PRN (08:30)
[2017-09-06] MEDS ORDERED: VANCOMYCIN 1000 MG/NS 250 ML IV SCH ×2 (08:30)
[2017-09-06] MEDS ORDERED: LACTATED RINGER'S 1000 ML IV PRN (08:30)
[2017-09-06] MEDS ORDERED: POVIDONE IODINE 5% (ANTISEPSIS KIT) 4 APPLICATIONS EACH NARE PRN (08:30)
[2017-09-06] MEDS ORDERED: CEFAZOLIN INJ 2,000 MG in SODIUM CHLORIDE 0.9% INJ 100 ML IV SCH (08:30)
[2017-09-06] MEDS ORDERED: MUPIROCIN 2% OINT 1 APPLIC/GM SYR NASAL SCH (08:30)
[2017-09-06] MEDS ORDERED: POVIDONE IODINE 5% (ANTISEPSIS KIT) 4 APPLICATIONS EACH NARE SCH (08:30)
[2017-09-06 08:43] LABS: AUTOMATED NEUTROPHIL # 4.1 TH/MM3 (1.8-7.7); BASOPHIL # 0.1 TH/MM3 (0-0.2); BASOPHIL % 0.9 % (0.0-2.0); EOSINOPHIL # 0.4 TH/MM3 (0-0.4); EOSINOPHIL % 5.2 % (0.0-4.0); HEMATOCRIT 43.4 % (39.0-51.0); HEMOGLOBIN 14.7 GM/DL (13.0-17.0); LYMPH % 27.3 % (9.0-44.0); LYMPHOCYTE # 2.1 TH/MM3 (1.0-4.8); MEAN CELL VOLUME 95.3 FL (80.0-100.0); MEAN CORPUSCULAR HEMOGLOBIN 32.2 PG (27.0-34.0); MEAN CORPUSCULAR HGB CONC 33.7 % (32.0-36.0); MEAN PLATELET VOLUME 6.8 FL (7.0-11.0); MONO % 14.4 % (0.0-8.0); MONOCYTE # 1.1 TH/MM3 (0-0.9); NEUT % 52.2 % (16.0-70.0); PLATELET COUNT 216 TH/MM3 (150-450); RED BLOOD COUNT 4.56 MIL/MM3 (4.50-5.90); RED CELL DISTRIBUTION WIDTH 12.8 % (11.6-17.2); WHITE BLOOD COUNT 7.8 TH/MM3 (4.0-11.0)
[2017-09-06 08:53] LABS: INTERNATIONAL NORMALIZED RATIO 1.1 RATIO
[2017-09-06] MEDS ORDERED: CENTCHW4 CHEW (08:55)
[2017-09-06] MEDS ORDERED: ASPI81TA23 PO (08:55)
[2017-09-06] MEDS ORDERED: FLUT1SPR5 EACH NARE (08:55)
[2017-09-06] MEDS ORDERED: ALBUAER3 INH (08:55)
[2017-09-06] MEDS ORDERED: TRAM50TA PO (08:55)
[2017-09-06] MEDS ORDERED: METO50TA PO (09:00)
[2017-09-06] MEDS ORDERED: RIFA300C2 PO (09:00)
[2017-09-06] MEDS ORDERED: CIPR500T2 PO (09:00)
[2017-09-06] MEDS ORDERED: FURO40TA PO (09:00)
[2017-09-06 09:08] LABS: BICARBONATE 29.7 MEQ/L (21.0-32.0); CREATININE 0.86 MG/DL (0.60-1.30)
[2017-09-06] MEDS ORDERED: PROPOFOL 200 MG/20 ML AMP ONE (10:02)
[2017-09-06] MEDS ORDERED: LIDOCAINE HCL 1% PF 30 ML VIAL ONE (10:19)
[2017-09-06] MEDS ORDERED: ceFAZolin INJ 1,000 MG VIAL ONE (10:27)
[2017-09-06] MEDS ORDERED: LIDOCAINE HCL 2% 50 ML VIAL ONE (10:27)
[2017-09-06] MEDS ORDERED: KETAMINE HCL 500 MG/10 ML VIAL ONE (10:35)
--- NOTE | 2017-09-06 11:13 | CATHPROC ---
Patient Name: CECY BENNETT Study #: [id number] Initial MD: Derek Gonsalves Date of : 1950 Study Date: 09/06/2017 Cardiac Catheterization Report 09/06/2017 12:21:10 PM Financial #: [id number] 1 of 8 Patient Name: CECY BENNETT Study #: [id number] Initial MD: Derek Gonsalves Date of : 1950 Study Date: 09/06/2017 Entire Case Report Patient Information Patient Name CECY BENNETT Date of 1950 Age 67 years Financial # [id number] Gender M AlternateID Lab Number 6 Room Number DC09 Height (in) 68.0 Height (cm) 172.7 BSA 1.98 Weight (lbs) 185.7 Weight (kg) 84.4 Patient Address/Phone Number Home Address [facility] Home Phone Number [phone] [facility] [phone] Study Information Study Number Admission Scheduled Start Study Start [id number] Sep 06 2017 7:50AM 09/06/2017 Sep 06 2017 9:02AM [place] [facility] Cardiac Pacer/ICD Admit Source Facility Department Other [facility] - Bus Repair Supervisor Physician and Clinical Staff Initial Derek Kumar Engineering Technical Analyst Cindy AldanaRT(R) TECH2 Engineering Technical Analyst Hailee Hood,BILLY Engineering Technical Analyst Zak Calderon RN Other Anesthesia, GREEN ENERGY MARKETING ANALYST Other Pollo Alcantara RT(R) Recorder Ariadna Farley BSN Recorder Aditi Rocha RCIS TECH2 Scrub Camelia López RCIS Procedures Performed Procedure Location (Site) Vessel Name Pacemaker Temp Jugular Vein (right) Jugular 09/06/2017 12:21:10 PM Financial #: [id number] 2 of 8 Patient Name: CECY BENNETT Study #: [id number] Initial MD: Derek Gnosalves Date of : 1950 Study Date: 09/06/2017 Equipment Time Cook'S Assistant Description Size Mfg Part Number Used/Scraped CATHETER, FR5 SWAN JEFFRY 10:47 CHANG JHA FR 5 110F5 *[id number] Used MONITOR [id number] 11:45 [employer]OL INC JOSTIN, HEMOSTAT 1 GRAM Used *[id number] TP-1103 10:08 MEDLINE INDUSTRIES SUTURE, STRIP PLUS 1/2" * Used *[id number] 10:08 MEDLINE PACER ADHESIVE, MASTISOL 2/3CC 2/3CC 0523-48 Used 10:08 MEDLINE PACER DIETZ, LIMB * 2530 *[id number] Used [id number] 10:08 MEDLINE PACER PACK, PACER CUSTOM * Used *[id number] SAVQLGO58 10:08 MEDLINE PACER PEN, SKIN DUAL W/ RULER * Used *[id number] PSI-6F-11- 10:52 [facility] MEDICAL SHEATH, FR6.5 PRELUDE 11CM FR 6.5 038ACT Used *[id number] 10:39 Needle Sponge Count 1 1 Used 10:40 Needle Sponge Count 2 22 Used 10:40 Needle Sponge Count 20 200 Used 10:40 Needle Sponge Count 30 1 Used [id number] *[id number] SUTURE, 3-0 VICRYL [SH] ([id number]) SUTURE, 3-0 VICRYL [SH] ([id number]) SUTURE, 4-0 MONOCRYL [PS2] (Y496G) [id number] 10:08 [place] [employer],WARM AIR CCL * Used *[id number] [facility], ELECTROSURGICAL 10:08 * E7507 *[id number] Used SURGICAL GROUNDING ORANGE BC128-712B 10:46 VITATRON MEDTRONIC PLASMABLADE, PEAD 3.0S * Used *[id number] 3547-2303 10:08 [employer] KAMI. / * Used *38400 Equipment Model, Serial, Lot Number and Expiration Data Description Model Number Serial Number Lot Number Expiration Date JOSTIN, HEMOSTAT 1 GRAM [id number] 01-24-2022 Insurance Information Insurance Payor Private Health Insurance Third Democrat Third Democrat Number HU[employer] CHOICE PPO HUMCRPPO 09/06/2017 12:21:10 PM Financial #: [id number] 3 of 8 Patient Name: CECY BENNETT Study #: [id number] Initial MD: Derek Gonsalves Date of : 1950 Study Date: 09/06/2017 History: Allergies Allergy Reaction No Known Allergies Labs Hgb (g/dl) Hct (%) RBC (MIL/MM3) WBC (l/cumm) Platelets (thousands) 11.60-17.00 35.00-51.00 4.00-5.90 4.00-11.00 150.00-450.00 14.7 43.4 4.5 7.8 216 Glucose (mg/dl) BUN (mg/dl) Creatinine (mg/dl) BUN:Creatinine (1:x) 74.00-106.00 7.00-18.00 0.50-1.30 10.00-20.00 108 19 0.9 21.1 Na (meq/l) K (meq/l) 136.00-145.00 3.50-5.10 138 4.6 INR (PTT:PT) 0.90-1.10 1.1 Medication Medication Total Dose (Bolus/Oral) Medication Total Dosage/Unit 2% XYLOCAINE 100 mL Medications (Bolus/Oral) Medication Time Given Dosage/Unit Administered By Reason 2% XYLOCAINE 09/06/2017 10:50:07 AM 50 mL Derek Gonsalves 50 mL 2% XYLOCAINE given in lab by Derek Gonsalves via Subcutaneous. Ordered by Derek Gonsalves. RIJ 2% XYLOCAINE 09/06/2017 11:21:39 AM 50 mL Derek Gonsalves 50 mL 2% XYLOCAINE given in lab by Derek Gonsalves in Left shoulder via Subcutaneous. Ordered by Derek Gonsalves. Medication (Drip) Medication Time Given Dosage/Unit Concentration/Unit Diluent (ml) Solution ANCEF 09/06/2017 10:28:17 AM 2 g 2 g ANCEF given in lab by Anesthesia, GREEN ENERGY MARKETING ANALYST via Peripheral IV. Ordered by Derek Gonsalves. Reason: As per physicians verbal order. VANCOMYCIN DRIP 09/06/2017 10:27:32 AM 1 g 1 g VANCOMYCIN DRIP given in lab by Anesthesia, GREEN ENERGY MARKETING ANALYST via Peripheral IV. Ordered by Derek Gonsalves. Reas on: As per physicians verbal order. 09/06/2017 12:21:10 PM Financial #: [id number] 4 of 8 Patient Name: CECY BENNETT Study #: [id number] Initial MD: Derek Gonsalves Date of : 1950 Study Date: 09/06/2017 Initial Case Assessment Cardiovascular HR Rhythm NIBP Chest Pain 74 paced 101/64 0 Edema Present Skin color Skin None Normal Warm Dry Circulatory - Right Pulses Dorsalis Pedis 1 Scale (0,1,2,3,4,d) Circulatory - Left Pulses Dorsalis Pedis 1 Scale (0,1,2,3,4,d) Circulatory - Lower Extremities Color Lower Right Color Lower Left Normal Normal Neurological State Oriented to time-place- Alert Moves all extremities person Respiration - General Respiration Rate SpO2 (%) (B/min) 20 99 Final Case Assessment Cardiovascular HR Rhythm NIBP 68 paced 109/60 Neurological State Oriented to time-place- Alert Moves all extremities person Respiration - General Respiration Rate SpO2 (%) (B/min) 17 100 09/06/2017 12:21:10 PM Financial #: [id number] 5 of 8 Patient Name: CECY BENNETT Study #: [id number] Initial MD: Derek Gonsalves Date of : 1950 Study Date: 09/06/2017 Vitals Summary Pain Time HR NIBP SpO2 Resp Temp EtCO2 Apnea Wendy Diamond Comment Level 11:31:00 82 106/62 100.0 16 12:10:42 68 109/60 100.0 20 Chronological Log Time Study Chronological Log 10:04:50 Patient arrived via Bed. 10:04:51 Patient Name, D.O.B, / Armband Verified By R.N. 10:04:53 Consent signed by the physician and the patient and verified by the Bus Repair Supervisor staff. 10:04:54 Pre-op and post- op instructions given; patient acknowledges understanding of instructions. 10:04:55 Anesthesia at bedside. Assumes care of patient. 10:04:57 Patient has been NPO for Less than 6Hrs. 10:04:58 Skin Breakdown- none per pt 10:05:07 History and physical on the chart. 10:07:55 A # 20 IV was noted in the Hand (left). Grade = 0 0.9% NaCl @ KVO 10:08:00 A # 20 IV was noted in the Hand (right). Grade = 0 0.9%NaCl @ KVO 10:08:19 Patient Warmer Placed on the Table. 10:08:20 Disposable Defibrillator Pads Placed On Patient. 10:08:21 Chitra Prominences Protected 10:08:22 Bovie ground pad applied to: lower abd 10:08:27 Table restraints applied according to hospital policy 10:12:48 Reference ECG taken Assessment: Initial Case, HR=74 BPM, Rhythm=paced, LMTA=638/64 mmhg, Chest Pain=0, Edema=None, Color=Normal, Skin = Warm, Dry Right Pulses: Noel Ped=1 Left Pulses: Noel Ped=1 10:13:52 Lower Right Extremities: Color=Normal Lower Left Extremities: Color=Normal Neurological: State=Alert, Ox3, CASTANEDA Respiration: Resp=20 B/min, SpO2=99 % 10:26:27 Left Upper Chest Prepped Times Two. 1 g VANCOMYCIN DRIP given in lab by Anesthesia, GREEN ENERGY MARKETING ANALYST via Peripheral IV. Ordered by Derek Gonsalves . Reason: As per 10:27:32 physicians verbal order. 2 g ANCEF given in lab by Anesthesia, GREEN ENERGY MARKETING ANALYST via Peripheral IV. Ordered by Derek Gonsalves. Reason: As per physicians 10:28:17 verbal order. 10:29:31 Neck and shoulders prepped with 2% chlorhexidine, and draped after a 3 min. waiting time. 10:34:59 paged 09/06/2017 12:21:10 PM Financial #: [id number] 6 of 8 Patient Name: CECY BENNETT Study #: [id number] Initial MD: Derek Gonsalves Date of : 1950 Study Date: 09/06/2017 First Sponge And Instrument Count Done by Camelia López RCIS. 10:35:36 Hypo's: 1, Sponges: 30, Bovie/scratch: 2 Sutures: 2, Blades: 3 (includes plasma), Instruments: 26, Syveck Patches: 0 verified by A.M. 10:36:30 MD responded 10:44:00 MD arrived. Time Out. Correct patient, procedure, procedure equipment, site and side verified with physicia n present. Time 10:48:25 concurred by MD, individual staff and GREEN ENERGY MARKETING ANALYST. Time Out #2 - Consents verified, patient in correct position, all results are labled and displa nina safety precautions 10:48:37 taken, antibiotics administered. Time out concurred by MD, individual staff and GREEN ENERGY MARKETING ANALYST in procedu re 10:48:44 Case Start 10:50:07 50 mL 2% XYLOCAINE given in lab by Derek Gonsalves via Subcutaneous. Ordered by Derek Gonsalves. RI 10:52:48 Vascular access was obtained in the Jugular Vein (right). A SHEATH, FR6.5 PRELUDE 11CM FR 6.5 was advanced into the Jugular Vein (right) using the Yeny fernandez Seldinger 10:54:54 technique. 10:55:37 Temporary pacing catheter sutured in place 10:57:58 A CATHETER, FR5 SWAN JEFFRY MONITOR FR 5 was advanced to the right ventricle. Rate = 35, Outp ut = 10, MA = 10. 10:57:59 Lead placement verified under fluoroscopy 11:00:31 Temporary transvenous pacing swan sutured in place to secure. 11:01:59 Sterile dressing applied to site 11:11:33 NOTE: This patient is undergoing an additional procedure while still in the Cardiac Cath La b. 11:11:34 Left Upper Chest Prepped Times Two. 11:15:09 A sterile drape was appplied after a 3 min waiting period. 11:21:39 50 mL 2% XYLOCAINE given in lab by Derek Gonsalves in Left shoulder via Subcutaneous. Ordered by Derek Gonsalves. 11:22:41 Surgical Incision Made. 11:24:04 A pocket was opened at the Shoulder, Lt.. 11:26:12 The Engineering Technical Analyst is being relieved by Zak Calderon RN. 11:26:24 The Recorder is being relieved by Aditi Rocha, SEMICONDUCTOR DIES LOADER TECH2. 11:30:49 A device was explanted. 11:31:00 HR=82 bpm, DSZO=562/62 mmhg, SlR8=157 %, Resp=16 B/min 11:33:10 The atrial lead was disconnected and removed. 11:34:25 The Ventricular lead was disconnected and removed. 11:40:16 The pocket was swabbed and RA and RV lead tips were removed and sent to the lab for culture . 11:41:07 Jostin hemostasis powder applied to pocket. 11:41:42 Closing the pocket. Second Sponge And Instrument Count Done by Camelia López RCIS. 11:41:59 Hypo's: 1, Sponges: 30, Bovie/scratch: 2 Sutures: ~SUTURE~, Blades: 3, Instruments: 26, Syveck Patches: 0 3 3.0 Vicryl suture added to t he count 11:47:53 Implant Procedure was performed. 11:48:11 A PPM Removal . (Dual) RA and RV lead and PM device extraction. 12:00:35 The pocket was closed. 12:00:38 Case End 09/06/2017 12:21:10 PM Financial #: [id number] 7 of 8 Patient Name: CECY BENNETT Study #: [id number] Initial MD: Derek Gonsalves Date of : 1950 Study Date: 09/06/2017 The Final Sponge And Instrument Count Done by Derek Gonsalves. 12:01:34 Hypo's: 1, Sponges: 30, Bovie/scratch: 2 Sutures: 6, Blades: 3, Instruments: 26, Syveck Patches: 0 A 4.0 Monocryl suture was added to t he count 12:02:31 Steri-strips and a sterile dressing applied to site. 12:09:55 Sterile dressing applied to site 12:09:56 No case complications noted. 12:09:57 Cine recording checked. 12:09:58 Bedside Report will be given. Assessment: Final Case, HR=68 BPM, Rhythm=paced, YVTQ=848/60 mmhg 12:10:01 Neurological: State=Alert, Ox3, CASTANEDA Respiration: Resp=17 B/min, DhD1=613 % 12:10:42 HR=68 bpm, JRNJ=874/60 mmhg, CzR4=663 %, Resp=20 B/min 12:20:16 Patient moved to bed 12:22:26 Patient transported to [facility]. End Study - Contrast Media Used In Study Contrast Total Opened (mL) Total Used (mL) Total Wasted (mL) Unspecified 0 0 0 End Study - Maximum Contrast Load Max Contrast Load (mL) 468.9 End Study - Radiation Exposure Fluoro Time (minutes) 0.8 End Study - Patient Disposition Complications Transferred To Interventional Outcome No Telemetry Bed No attempt made 09/06/2017 12:21:10 PM Financial #: [id number]
--- NOTE | 2017-09-06 11:41 | EKG ---
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
[2017-09-06] MEDS ORDERED: PROPOFOL 200 MG/20 ML AMP IV ONE (12:00)
[2017-09-06] MEDS ORDERED: PHENYLEPH/NS 1000 MCG/10 ML SYR IV ONE (12:00)
[2017-09-06] MEDS ORDERED: STERILE WATER FOR INJECTION 20 ML VIAL IV ONE (12:00)
[2017-09-06] MEDS ORDERED: LIDOCAINE HCL 1% PF 5 ML SYRINGE OTHER ONE (12:00)
[2017-09-06] MEDS ORDERED: MIDAZOLAM HCL 5 MG/5 ML VIAL ONE (12:06)
--- NOTE | 2017-09-06 12:23 | MP ---
cc: Derek Gonsalves MD DATE OF OPERATION: 09/06/2017 PROCEDURE PERFORMED: 1. Placement of a temporary transvenous pacemaker via the right internal jugular vein. 2. Explantation of a dual-chamber pacing system from the left chest. OPERATIVE NOTES: The patient was brought to the operating suite in the fasting state after having signed informed consent. The right neck was prepped and draped as per policy and anesthetized with 1% lidocaine. Central venous access was obtained via the right internal jugular vein using modified Seldinger technique and a 6 Chinese sheath placed. Through this sheath, a 5 Chinese [place] pacing catheter was introduced and its tip positioned in the right ventricular apex where good stimulation threshold was verified. The pacing catheter was secured into place using 2-0 silk ties down to the skin. A sleeve was also placed over the pacing catheter. The left upper chest was prepped and draped as per policy. Lidocaine was used to anesthetize the region over the preexisting pacemaker. Inspection of the overlying skin shows slight swelling with minimal erythema at the lateral edge. There is no definite warmth. The incision line is intact. A transverse incision was made over the preexisting generator and using blunt dissection, the generator was freed from the subcutaneous pocket. A second incision had to be made as there was extensive scar tissue making access to the suture sleeves very difficult. The suture sleeves were freed from the pectoralis fascia. Both leads were disconnected from the pacemaker generator. After unscrewing the lead tips, both leads were removed without difficulty. Cultures were taken of the pacemaker pocket as well as the pacemaker lead tips. Both incisions were closed using 3-0 Vicryl interrupted stitches in 2 layers to close the subcutaneous tissue and then 4-0 Monocryl running stitch to close the subcuticular tissue. Overlapping Steri-Strips and a pressure dressing were applied. There were no apparent, immediate complications. CONCLUSIONS: 1. Successful implantation of a temporary transvenous pacemaker via the right internal jugular vein. 2. Status post explantation of a dual-chamber left-sided pacemaker system. MD SHIRA Brito/SB , 12:07 PM , 12:22 PM ANITA
[2017-09-06] MEDS ORDERED: TEMAZEPAM 15 MG CAP PO PRN (13:00)
[2017-09-06] MEDS ORDERED: ALBUTEROL SULFATE 90 MCG/ACT HFA 8 GM INHALER INH PRN (13:00)
[2017-09-06] MEDS ORDERED: RESP: IPRATROPIUM 0.5 MG/2.5 ML NEB NEB PRN (13:00)
[2017-09-06] MEDS ORDERED: MIDAZOLAM HCL 2 MG/2 ML VIAL ONE ×2 (15:22)
[2017-09-06] MEDS ORDERED: Vancomycin Consult Pharmacy 1 EA OTHER SCH (16:15)
[2017-09-06] MEDS ORDERED: CHLORHEXIDINE GLUCONATE 2 % 1 PACK (2 CLOTHS)(extra cloths) TOPICAL PRN (16:45)
--- NOTE | 2017-09-06 16:55 | MB ---
cc: Candido Gold MD DATE: 09/06/2017 REQUESTING PHYSICIAN: Derek Gonsalves MD REASON: Pacemaker infection. HISTORY OF PRESENT ILLNESS: This is a 67-year-old white male who underwent placement of a dual-chamber pacemaker on 05/16/2017, because of symptomatic sick sinus syndrome. Patient noted redness of the pacemaker site approximately 3 weeks after the device was placed. He was given oral antibiotics and the redness persisted despite a second round of antibiotics. He was admitted for extraction of the pacemaker. He was noted to have had a recent MRSA bacteremia with positive blood cultures on 07/09/2017, in the emergency department at [place] and was given Levaquin because he felt well in June. At that time, the blood cultures were known to be Staph coagulase positive. Wound culture from the pacemaker is pending. The Gram stain showed rare white cells and no organisms. The pacemaker wire leads were also sent for culture. Another set of blood culture was also obtained. The patient currently feels well except for mild pain in the left chest region. This consultation is requested for antibiotic management. PAST MEDICAL HISTORY: COPD, osteoarthritis, paroxysmal atrial flutter, pacemaker implantation, left hip replacement, right hip replacement. ALLERGIES: NO KNOWN DRUG ALLERGIES. MEDICATIONS: Ciprofloxacin, rifampin, aspirin, Lasix, Lopressor, Flonase, Atrovent nebulizers, Ultram. SOCIAL HISTORY: The patient smokes 5 cigarettes a day. No illicit drugs. Positive alcohol use. FAMILY HISTORY: Noncontributory. REVIEW OF SYSTEMS: Significant for left chest wall pain, otherwise negative. PHYSICAL EXAMINATION: GENERAL: This is a well-developed male who is no acute distress. He is awake and alert and oriented. VITAL SIGNS: Includes temperature of 97.6, BP 136/73, heart rate 72, respirations 20. HEENT: The head is atraumatic. Extraocular movements grossly intact. Pupils reactive to light. No icterus. Oropharynx, moist mucosa, no lesions. NECK: Supple without adenopathy. LUNGS: Decreased breath sounds throughout. HEART: Regular S1 and S2. No murmurs, rubs or gallops. CHEST: The left chest wall has swelling at the area where the pacemaker was removed. ABDOMEN: Bowel sounds present, soft, nontender. RECTAL: Not performed. EXTREMITIES: No clubbing, cyanosis or edema. SKIN: No rash. NEUROLOGIC: No gross focal findings. PSYCHIATRIC: The patient is calm and cooperative. LABORATORY DATA: WBC 7.8, platelets 216, 52% neutrophils, 27% lymphocytes, 14% monocytes. Creatinine 0.86, BUN 19, sodium 138. IMPRESSION: 1. Pacemaker infection. 2. Chest wall infection at pacemaker pocket. 3. History of pacemaker implantation in 04/2017. 4. History of methicillin-resistant Staphylococcus aureus bacteremia. RECOMMENDATIONS: 1. Continue ciprofloxacin. 2. Discontinue rifampin. 3. Continue vancomycin. 4. Monitor new blood cultures. 5. Monitor new wound culture obtained from pacemaker removal procedure. Thank you for this consultation. Further recommendations will be made once the culture becomes available, but patient will very likely need a course of IV antibiotics for treatment and given his history of MRSA, very likely the infection is due to similar organism. Thank you for this consultation. MD DEACON Park/AKIN , 04:04 PM , 04:55 PM ANITA
[2017-09-06] MEDS: VANCOMYCIN INJ 1,250 MG in SODIUM CHLOR 0.9% 250 ML INJ 250 ML IV SCH (20:00)
[2017-09-06] MEDS: FLUTICASONE PROPIONATE 50 MCG/ACT 16 GM NASAL SPRAY EACH NARE SCH (21:00)
[2017-09-06] MEDS: BUDESONIDE-FORMOTEROL 160/4.5 MCG INHALER INH SCH (21:00)
[2017-09-06] MEDS: CIPROFLOXACIN 500 MG TAB PO SCH (21:00)
[2017-09-06] MEDS: METOPROLOL TARTRATE 50 MG TAB PO SCH (21:00)
[2017-09-07] VITALS (10 sets, daily range): BP systolic 115–147; BP diastolic 63–86; PULSE 58–132; RESP 14–30; TEMP 98–98.5; O2SAT 92–94
[2017-09-07] MEDS: traMADol HCL 50 MG TAB PO PRN ×3 (01:20→21:27)
[2017-09-07] MEDS: CHLORHEXIDINE GLUCONATE 2 % 1 PACK (2 CLOTHS)(taper/protocol) TOPICAL SCH (03:53)
--- NOTE | 2017-09-07 07:41 | PD.CARD.PN ---
Subjective Subjective Remarks Feels "OK". No CP, dyspnea, dizziness, palpitations. Mild pain at right temp pacer site. Objective Medications Item Value Date Time Aspirin 81 mg 09/07/17 0900 (Ecotrin Ec) DAILY/PO Furosemide 40 mg 09/07/17 0900 (Lasix) DAILY/PO Metoprolol 50 mg 09/06/17 2100 Tartrate BID/PO 09/06/17 2100 (Lopressor) Current Medications Medications (Trade) Dose Ordered Sig/Srikanth Route Start Time Stop Time Status Last Admin Sodium Chloride 1,000 ml @ 30 mls/hr Q24H IV 09/06/17 08:00 Cefazolin Sodium 2000 mg/Sodium Chloride 120 ml @ 240 mls/hr ADJUNCT INSTRUCTOR IV 09/06/17 08:30 09/09/17 08:29 (Betadine 5% Antisepsis Kit) 2 applic ADJUNCT INSTRUCTOR EACH NARE 09/06/17 08:30 09/09/17 08:29 (Bactroban Nasal 2% Oint) 1 applic ADJUNCT INSTRUCTOR NASAL 09/06/17 08:30 09/09/17 08:29 (Chlorhexidine 2% Cloth) 3 pack ADJUNCT INSTRUCTOR TOPICAL 09/06/17 08:30 09/09/17 08:29 Lactated Ringer's 1,000 ml @ 30 mls/hr Q24H PRN IV 09/06/17 08:30 09/09/17 08:29 Sodium Chloride 500 ml @ 30 mls/hr [id number] PRN IV 09/06/17 08:30 09/09/17 08:29 (Lopressor) 25 mg ADJUNCT INSTRUCTOR PRN PO 09/06/17 08:30 09/09/17 08:29 (Betadine 5% Antisepsis Kit) 1 applic ADJUNCT INSTRUCTOR PRN EACH NARE 09/06/17 08:30 09/09/17 08:29 (Chlorhexidine 2% Cloth) 3 pack ADJUNCT INSTRUCTOR PRN TOPICAL 09/06/17 08:30 09/09/17 08:29 (Proair Hfa Inh) 1 puff Q4H PRN INH 09/06/17 13:00 (Ecotrin Ec) 81 mg DAILY PO 09/07/17 09:00 (Symbicort 160-4.5 Mcg Inh) 1 puff Q12HR INH 09/06/17 21:00 (Cipro) 500 mg BID PO 09/06/17 21:00 09/06/17 21:00 (Lasix) 40 mg DAILY PO 09/07/17 09:00 (Atrovent Neb) 0.5 mg Q6HR NEB PRN NEB 09/06/17 13:00 (Lopressor) 50 mg BID PO 09/06/17 21:00 09/06/17 21:00 (Ultram) 50 mg Q4H PRN PO 09/06/17 13:00 09/07/17 03:54 (Flonase Baron Spr) 1 spray BID EACH NARE 09/06/17 21:00 (Rifampin) 300 mg DAILY PO 09/07/17 09:00 (Restoril) 30 mg HS PRN PO 09/06/17 13:00 Pharmacy Profile Note 0 ml @ 0 mls/hr UNSCH OTHER 09/06/17 16:15 Miscellaneous Information Patient in critical care unit? Ass... Q361D .XX 09/06/17 16:45 (Chlorhexidine 2% Cloth) 3 pack DAILY@04 TOPICAL 09/07/17 04:00 09/11/17 04:01 (Chlorhexidine 2% Cloth) 3 pack UNSCH PRN TOPICAL 09/06/17 16:45 09/11/17 16:40 Vancomycin HCl 1250 mg/Sodium Chloride 262.5 ml @ 250 mls/hr Q12H IV 09/06/17 20:00 Miscellaneous Information SPECIFIC LAB TO BE DRAWN:VANCO TROUGH DATE TO BE DR... ONCE ONCE .XX 09/08/17 07:45 09/08/17 07:46 Vital Signs / I&O Vital Signs Date Time Temp Pulse Resp B/P (MAP) Pulse Ox O2 Delivery O2 Flow Rate FiO2 09/07/17 04:00 98.0 73 30 115/63 (80) 92 09/07/17 00:00 98.1 74 15 147/76 (99) 93 09/06/17 20:12 93 Nasal Cannula 2.00 09/06/17 20:00 98.3 77 26 127/67 (87) 94 09/06/17 18:00 77 09/06/17 18:00 77 20 120/75 (90) 94 09/06/17 17:00 75 18 123/69 (87) 93 09/06/17 16:00 75 09/06/17 16:00 98.0 75 24 125/79 (94) 95 09/06/17 15:00 72 59 136/73 (94) 95 09/06/17 14:45 72 24 95 09/06/17 14:00 72 13 130/75 (93) 99 09/06/17 14:00 72 09/06/17 13:45 72 17 99 09/06/17 13:00 71 15 131/79 (96) 100 09/06/17 12:48 97.6 70 17 124/73 (90) 99 09/06/17 12:45 70 09/06/17 12:45 70 21 98 09/06/17 08:48 98.1 76 16 122/77 (92) 95 I/O 09/06/17 09/06/17 09/06/17 09/07/17 09/07/17 09/07/17 07:00 15:00 23:00 07:00 15:00 23:00 Intake Total 500 ml 480 ml Output Total 575 ml 600 ml Balance -75 ml -120 ml Intake Oral 500 ml 480 ml Output Urine Total 575 ml 600 ml # Bowel Movements 0 Physical Exam GENERAL: Well developed, well nourished. No acute distress. HEENT: Jugular venous pressure is normal. CHEST: Lungs clear anteriorly. Left incision sites without hematoma or tenderness. Saturated gauzes. CARDIAC: Regular rate and rhythm without S3, S4, or murmur. ABDOMEN: Soft, nontender, no hepatosplenomegaly. Bowel sounds present. EXTREMITIES: No clubbing, cyanosis, or edema. Laboratory Laboratory Tests Test 09/06/17 08:32 09/06/17 13:00 White Blood Count 7.8 TH/MM3 Red Blood Count 4.56 MIL/MM3 Hemoglobin 14.7 GM/DL Hematocrit 43.4 % Mean Corpuscular Volume 95.3 FL Mean Corpuscular Hemoglobin 32.2 PG Mean Corpuscular Hemoglobin Concent 33.7 % Red Cell Distribution Width 12.8 % Platelet Count 216 TH/MM3 Mean Platelet Volume 6.8 FL Neutrophils (%) (Auto) 52.2 % Lymphocytes (%) (Auto) 27.3 % Monocytes (%) (Auto) 14.4 % Eosinophils (%) (Auto) 5.2 % Basophils (%) (Auto) 0.9 % Neutrophils # (Auto) 4.1 TH/MM3 Lymphocytes # (Auto) 2.1 TH/MM3 Monocytes # (Auto) 1.1 TH/MM3 Eosinophils # (Auto) 0.4 TH/MM3 Basophils # (Auto) 0.1 TH/MM3 CBC Comment DIFF FINAL Differential Comment Prothrombin Time 11.0 SEC Prothromb Time International Ratio 1.1 RATIO Activated Partial Thromboplast Time 24.0 SEC Blood Urea Nitrogen 19 MG/DL Creatinine 0.86 MG/DL Random Glucose 108 MG/DL Calcium Level 9.0 MG/DL Sodium Level 138 MEQ/L Potassium Level 4.6 MEQ/L Chloride Level 103 MEQ/L Carbon Dioxide Level 29.7 MEQ/L Anion Gap 5 MEQ/L Estimat Glomerular Filtration Rate 88 ML/MIN Nasal Screen MRSA (PCR) MRSA NOT DETECTED Assessment and Plan Problem List: (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 Patient s/p MRSA bacteremia. Remains afebrile. No leukocytosis. Appreciate Dr. Gold's input. Await cultures. Tentative placement new pacemaker on the right Tuesday. (2) Paroxysmal atrial flutter ICD Codes: I48.92 - Unspecified atrial flutter Status: Chronic Plan: Remains in NSR. Fairly high atrial arrhythmia burden on recent pacemaker checks (>80%). Thromboembolic risk low. To continue daily baby aspirin and beta rashida. (3) Peripheral vascular disease ICD Codes: I73.9 - Peripheral vascular disease, unspecified Status: Chronic Plan: Severe, bilateral PVD at multiple levels on recent CTA. No rest pain. To address and treat once pacemaker issues resolved. Code Status full code Discussed Condition With patient and Problem Qualifiers (1) Infection of pacemaker pocket: Qualified Codes: T82.7XXA - Infection and inflammatory reaction due to other cardiac and vascular devices, implants and grafts, initial encounter Derek Gonsalves MD Sep 07, 2017 07:41
[2017-09-07] MEDS: CIPROFLOXACIN 500 MG TAB PO SCH ×2 (07:55→20:47)
[2017-09-07] MEDS: FUROSEMIDE 40 MG TAB PO SCH (07:55)
[2017-09-07] MEDS: METOPROLOL TARTRATE 50 MG TAB PO SCH ×2 (07:56→20:47)
[2017-09-07] MEDS: ASPIRIN EC 81 MG TABEC PO SCH (07:56)
[2017-09-07] MEDS: FLUTICASONE PROPIONATE 50 MCG/ACT 16 GM NASAL SPRAY EACH NARE SCH ×2 (07:56→21:00)
[2017-09-07] MEDS: BUDESONIDE-FORMOTEROL 160/4.5 MCG INHALER INH SCH ×2 (07:56→21:00)
[2017-09-07] MEDS: VANCOMYCIN INJ 1,250 MG in SODIUM CHLOR 0.9% 250 ML INJ 250 ML IV SCH ×2 (07:56→20:47)
[2017-09-07] MEDS ORDERED: RIFAMPIN 150 MG CAP PO SCH (09:00)
--- NOTE | 2017-09-07 16:03 | HHI.IDPN ---
Note Infectious Disease Note Patient is laying in bed and is comfortable. No new complaints. Afebrile. Pacemaker wire tip culture has been positive cocci. Identity pending. Pacemaker pocket wound culture has no growth. 67-year-old white male who underwent placement of a dual-chamber pacemaker on 05/16/2017, because of symptomatic sick sinus syndrome. Patient noted redness of the pacemaker site approximately 3 weeks after the device was placed. He was given oral antibiotics and the redness persisted despite a second round of antibiotics. He was admitted for extraction of the pacemaker. PAST MEDICAL HISTORY: COPD, osteoarthritis, paroxysmal atrial flutter, pacemaker implantation, left hip replacement, right hip replacement. ALLERGIES: NO KNOWN DRUG ALLERGIES. MEDICATIONS: Current Medications Medications (Trade) Dose Ordered Sig/Srikanth Route PRN Reason Start Time Stop Time Status Last Admin Dose Admin Sodium Chloride 1,000 ml @ 30 mls/hr Q24H IV 09/06/17 08:00 Cefazolin Sodium 2000 mg/Sodium Chloride 120 ml @ 240 mls/hr FARM EQUIPMENT MECHANIC APPRENTICE IV 09/06/17 08:30 09/09/17 08:29 Povidone Iodine (Betadine 5% Antisepsis Kit) 2 applic FARM EQUIPMENT MECHANIC APPRENTICE EACH NARE 09/06/17 08:30 09/09/17 08:29 Mupirocin (Bactroban Nasal 2% Oint) 1 applic FARM EQUIPMENT MECHANIC APPRENTICE NASAL 09/06/17 08:30 09/09/17 08:29 Chlorhexidine Gluconate (Chlorhexidine 2% Cloth) 3 pack FARM EQUIPMENT MECHANIC APPRENTICE TOPICAL 09/06/17 08:30 09/09/17 08:29 Lactated Ringer's 1,000 ml @ 30 mls/hr Q24H PRN IV SEE LABEL COMMENTS 09/06/17 08:30 09/09/17 08:29 Sodium Chloride 500 ml @ 30 mls/hr [id number] PRN IV SEE LABEL COMMENTS 09/06/17 08:30 09/09/17 08:29 Metoprolol Tartrate (Lopressor) 25 mg FARM EQUIPMENT MECHANIC APPRENTICE PRN PO SEE LABEL COMMENTS 09/06/17 08:30 09/09/17 08:29 Povidone Iodine (Betadine 5% Antisepsis Kit) 1 applic FARM EQUIPMENT MECHANIC APPRENTICE PRN EACH NARE SEE LABEL COMMENTS 09/06/17 08:30 09/09/17 08:29 Chlorhexidine Gluconate (Chlorhexidine 2% Cloth) 3 pack FARM EQUIPMENT MECHANIC APPRENTICE PRN TOPICAL SEE LABEL COMMENTS 09/06/17 08:30 09/09/17 08:29 Albuterol Sulfate (Proair Hfa Inh) 1 puff Q4H PRN INH SHORTNESS OF BREATH 09/06/17 13:00 Aspirin (Ecotrin Ec) 81 mg DAILY PO 09/07/17 09:00 09/07/17 07:56 Budesonide/ Formoterol Fumarate (Symbicort 160-4.5 Mcg Inh) 1 puff Q12HR INH 09/06/17 21:00 Ciprofloxacin (Cipro) 500 mg BID PO 09/06/17 21:00 09/07/17 07:55 Furosemide (Lasix) 40 mg DAILY PO 09/07/17 09:00 09/07/17 07:55 Ipratropium [place] (Atrovent Neb) 0.5 mg Q6HR NEB PRN NEB SHORTNESS OF BREATH 09/06/17 13:00 Metoprolol Tartrate (Lopressor) 50 mg BID PO 09/06/17 21:00 09/07/17 07:56 Tramadol HCl (Ultram) 50 mg Q4H PRN PO PAIN 09/06/17 13:00 09/07/17 03:54 Fluticasone Propionate (Flonase Baron Spr) 1 spray BID EACH NARE 09/06/17 21:00 Rifampin (Rifampin) 300 mg DAILY PO 09/07/17 09:00 09/07/17 07:56 Temazepam (Restoril) 30 mg HS PRN PO INSOMNIA 09/06/17 13:00 Pharmacy Profile Note 0 ml @ 0 mls/hr UNSCH OTHER 09/06/17 16:15 Miscellaneous Information Patient in critical care unit? Ass... Q361D .XX 09/06/17 16:45 Chlorhexidine Gluconate (Chlorhexidine 2% Cloth) 3 pack DAILY@04 TOPICAL 09/07/17 04:00 09/11/17 04:01 Chlorhexidine Gluconate (Chlorhexidine 2% Cloth) 3 pack UNSCH PRN TOPICAL HYGIENIC CARE 09/06/17 16:45 09/11/17 16:40 Vancomycin HCl 1250 mg/Sodium Chloride 262.5 ml @ 250 mls/hr Q12H IV 09/06/17 20:00 09/07/17 07:56 Miscellaneous Information SPECIFIC LAB TO BE DRAWN:VANCOMYCON TROUGH DATE TO... ONCE ONCE .XX 09/08/17 19:45 09/08/17 19:46 OBJECTIVE: Vital Signs Date Time Temp Pulse Resp B/P (MAP) Pulse Ox O2 Delivery O2 Flow Rate FiO2 09/07/17 14:00 78 09/07/17 12:00 98.5 58 14 135/68 (90) 94 09/07/17 12:00 58 09/07/17 10:00 74 09/07/17 08:00 75 09/07/17 08:00 75 09/07/17 08:00 98.3 75 19 140/86 (104) 93 09/07/17 04:00 98.0 73 30 115/63 (80) 92 09/07/17 00:00 98.1 74 15 147/76 (99) 93 09/06/17 20:12 93 Nasal Cannula 2.00 09/06/17 20:00 98.3 77 26 127/67 (87) 94 09/06/17 18:00 77 09/06/17 18:00 77 20 120/75 (90) 94 09/06/17 17:00 75 18 123/69 (87) 93 Laboratory Tests Test 09/06/17 08:32 White Blood Count 7.8 TH/MM3 Red Blood Count 4.56 MIL/MM3 Hemoglobin 14.7 GM/DL Hematocrit 43.4 % Mean Corpuscular Volume 95.3 FL Mean Corpuscular Hemoglobin 32.2 PG Mean Corpuscular Hemoglobin Concent 33.7 % Red Cell Distribution Width 12.8 % Platelet Count 216 TH/MM3 Mean Platelet Volume 6.8 FL Neutrophils (%) (Auto) 52.2 % Lymphocytes (%) (Auto) 27.3 % Monocytes (%) (Auto) 14.4 % Eosinophils (%) (Auto) 5.2 % Basophils (%) (Auto) 0.9 % Neutrophils # (Auto) 4.1 TH/MM3 Lymphocytes # (Auto) 2.1 TH/MM3 Monocytes # (Auto) 1.1 TH/MM3 Eosinophils # (Auto) 0.4 TH/MM3 Basophils # (Auto) 0.1 TH/MM3 CBC Comment DIFF FINAL Differential Comment Laboratory Tests Test 09/06/17 08:32 Blood Urea Nitrogen 19 MG/DL Creatinine 0.86 MG/DL Random Glucose 108 MG/DL Calcium Level 9.0 MG/DL Sodium Level 138 MEQ/L Potassium Level 4.6 MEQ/L Chloride Level 103 MEQ/L Carbon Dioxide Level 29.7 MEQ/L Anion Gap 5 MEQ/L Estimat Glomerular Filtration Rate 88 ML/MIN Microbiology Date/Time Source Procedure Growth Status 09/06/17 15:22 Blood Peripheral Aerobic Blood Culture - Preliminary NO GROWTH IN 1 DAY Resulted 09/06/17 15:22 Blood Peripheral Anaerobic Blood Culture - Preliminary NO GROWTH IN 1 DAY Resulted 09/06/17 15:17 Blood Peripheral Aerobic Blood Culture - Preliminary NO GROWTH IN 1 DAY Resulted 09/06/17 15:17 Blood Peripheral Anaerobic Blood Culture - Preliminary NO GROWTH IN 1 DAY Resulted 09/06/17 11:45 Catheter Tip Other Wound Culture - Preliminary Resulted 09/06/17 11:45 Wound Chest Gram Stain - Final Resulted 09/06/17 11:45 Wound Chest Wound Culture - Preliminary NO GROWTH IN 24 HOURS. Resulted PHYSICAL EXAMINATION: GENERAL: No acute distress. HEENT: The head is atraumatic. Extraocular movements grossly intact. Pupils reactive to light. No icterus. Oropharynx, moist mucosa, no lesions. NECK: Supple without adenopathy. LUNGS: Decreased breath sounds throughout. HEART: Regular S1 and S2. No murmurs, rubs or gallops. CHEST: The left chest wall has swelling at the area where the pacemaker was removed. ABDOMEN: Bowel sounds present, soft, nontender. EXTREMITIES: No clubbing, cyanosis or edema. SKIN: No rash. NEUROLOGIC: No gross focal findings. PSYCHIATRIC: Calm and cooperative. IMPRESSION: 1. Pacemaker infection. Culture pending. 2. Chest wall infection at pacemaker pocket. 3. History of pacemaker implantation in 04/2017. 4. History of methicillin-resistant Staphylococcus aureus bacteremia. RECOMMENDATIONS: 1. Continue ciprofloxacin. 2. Continue Vancomycin. 3. Stop rifampin. 4. Monitor blood cultures. 5. Monitor new wound culture obtained from pacemaker removal procedure. I think it should be okay to proceed with new pacemaker implantation if the blood cultures are negative. Candido Gold MD Sep 07, 2017 16:03
--- NOTE | 2017-09-07 18:40 | ECHRPT ---
Indication: Endocarditis CONCLUSIONS The left ventricular systolic function is severely reduced with an estimated ejection fraction in th e range of 25-30%. There is diffuse global hypokinesis with distinct regional wall motion abnormalities. Mild concentric left ventricular hypertrophy. Normal left ventricular size. The left atrial size is mildly dilated. Aortic valve sclerosis is present. very technically limited study BP: 122 / 77 HR: 76 Rhythm: MEASUREMENTS (Male / Female) Normal Values Technical Quality:Technically difficult study 2D ECHO LV Diastolic Diameter PLAX 5.2 cm 4.2 - 5.9 / 3.9 - 5.3 cm LV Systolic Diameter PLAX 4.5 cm IVS Diastolic Thickness 1.1 cm 0.6 - 1.0 / 0.6 - 0.9 cm LVPW Diastolic Thickness 1.1 cm 0.6 - 1.0 / 0.6 - 0.9 cm LV Relative Wall Thickness 0.4 RV Internal Dim ED PLAX 2.3 cm LVOT Diameter 2.0 cm LA Systolic Diameter LX 4.4 cm 3.0 - 4.0 / 2.7 - 3.8 cm M-MODE Aortic Root Diameter MM 3.3 cm LA Systolic Diameter MM 4.3 cm LA Ao Ratio MM 1.3 AV Cusp Separation MM 1.2 cm DOPPLER AV Peak Velocity 146.0 cm/s AV Peak Gradient 8.5 mmHg LVOT Peak Velocity 67.6 cm/s LVOT Peak Gradient 1.8 mmHg AV Area Cont Eq pk 1.5 cm MV Area PHT 4.5 cm Mitral E Point Velocity 78.0 cm/s Mitral A Point Velocity 32.6 cm/s Mitral E to A Ratio 2.4 TR Peak Velocity 186.0 cm/s TR Peak Gradient 13.8 mmHg FINDINGS LEFT VENTRICLE The left ventricular systolic function is severely reduced with an estimated ejection fraction in th e range of 25-30%. There is diffuse global hypokinesis with distinct regional wall motion abnormalities. Mild concentric left ventricular hypertrophy. Normal left ventricular size. RIGHT VENTRICLE Normal right ventricular size and systolic function. LEFT ATRIUM The left atrial size is mildly dilated. RIGHT ATRIUM The right atrial size is normal. ATRIAL SEPTUM Normal atrial septal thickness without atrial level shunting by limited color doppler interrogation. AORTA The aortic root and proximal ascending aorta are normal in size on limited imaging. MITRAL VALVE Structurally normal mitral valve. No mitral valve stenosis or regurgitation. AORTIC VALVE Aortic valve sclerosis is present. Trileaflet aortic valve. TRICUSPID VALVE Structurally normal tricuspid valve. No tricuspid valve stenosis or regurgitation. PULMONARY VALVE No pulmonary valve regurgitation or stenosis. VESSELS The inferior vena cava is normal in size. PERICARDIUM No pericardial effusion. Boyd Nicole MD, FACC, [facility] [place] (Electronically Signed) Final Date:07 September 2017 18:39
[2017-09-08] VITALS (16 sets, daily range): BP systolic 106–139; BP diastolic 55–78; PULSE 58–81; RESP 16–20; TEMP 97.8–98.6; O2SAT 92–96
[2017-09-08] MEDS: traMADol HCL 50 MG TAB PO PRN ×2 (01:55→21:18)
[2017-09-08] MEDS: CHLORHEXIDINE GLUCONATE 2 % 1 PACK (2 CLOTHS)(taper/protocol) TOPICAL SCH (04:00)
[2017-09-08 05:13] LABS: CREATININE 0.69 MG/DL (0.60-1.30)
[2017-09-08] MEDS: ASPIRIN EC 81 MG TABEC PO SCH (07:37)
[2017-09-08] MEDS: CIPROFLOXACIN 500 MG TAB PO SCH ×2 (07:37→21:18)
[2017-09-08] MEDS: FUROSEMIDE 40 MG TAB PO SCH (07:38)
[2017-09-08] MEDS: BUDESONIDE-FORMOTEROL 160/4.5 MCG INHALER INH SCH ×2 (07:38→21:00)
[2017-09-08] MEDS: METOPROLOL TARTRATE 50 MG TAB PO SCH ×2 (07:38→21:19)
[2017-09-08] MEDS: FLUTICASONE PROPIONATE 50 MCG/ACT 16 GM NASAL SPRAY EACH NARE SCH ×2 (07:38→21:00)
[2017-09-08] MEDS: VANCOMYCIN INJ 1,250 MG in SODIUM CHLOR 0.9% 250 ML INJ 250 ML IV SCH ×2 (07:38→21:20)
[2017-09-08] MEDS ORDERED: PHARMACY ORDERED LAB ONE ×2 (07:45→19:45)
--- NOTE | 2017-09-08 08:27 | PD.CARD.PN ---
Subjective Subjective Remarks Feels "good". No CP, dyspnea, dizziness, palpitations. Objective Medications Item Value Date Time Aspirin 81 mg 09/07/17 0900 (Ecotrin Ec) DAILY/PO 09/08/17 0737 Furosemide 40 mg 09/07/17 0900 (Lasix) DAILY/PO 09/08/17 0738 Metoprolol 50 mg 09/06/17 2100 Tartrate BID/PO 09/08/17 0738 (Lopressor) Current Medications Medications (Trade) Dose Ordered Sig/Srikanth Route Start Time Stop Time Status Last Admin Sodium Chloride 1,000 ml @ 30 mls/hr Q24H IV 09/06/17 08:00 Cefazolin Sodium 2000 mg/Sodium Chloride 120 ml @ 240 mls/hr AIR POLLUTION SPECIALIST IV 09/06/17 08:30 09/09/17 08:29 (Betadine 5% Antisepsis Kit) 2 applic AIR POLLUTION SPECIALIST EACH NARE 09/06/17 08:30 09/09/17 08:29 (Bactroban Nasal 2% Oint) 1 applic AIR POLLUTION SPECIALIST NASAL 09/06/17 08:30 09/09/17 08:29 (Chlorhexidine 2% Cloth) 3 pack AIR POLLUTION SPECIALIST TOPICAL 09/06/17 08:30 09/09/17 08:29 Lactated Ringer's 1,000 ml @ 30 mls/hr Q24H PRN IV 09/06/17 08:30 09/09/17 08:29 Sodium Chloride 500 ml @ 30 mls/hr [id number] PRN IV 09/06/17 08:30 09/09/17 08:29 (Lopressor) 25 mg AIR POLLUTION SPECIALIST PRN PO 09/06/17 08:30 09/09/17 08:29 (Betadine 5% Antisepsis Kit) 1 applic AIR POLLUTION SPECIALIST PRN EACH NARE 09/06/17 08:30 09/09/17 08:29 (Chlorhexidine 2% Cloth) 3 pack AIR POLLUTION SPECIALIST PRN TOPICAL 09/06/17 08:30 09/09/17 08:29 (Proair Hfa Inh) 1 puff Q4H PRN INH 09/06/17 13:00 (Ecotrin Ec) 81 mg DAILY PO 09/07/17 09:00 09/08/17 07:37 (Symbicort 160-4.5 Mcg Inh) 1 puff Q12HR INH 09/06/17 21:00 09/08/17 07:38 (Cipro) 500 mg BID PO 09/06/17 21:00 09/08/17 07:37 (Lasix) 40 mg DAILY PO 09/07/17 09:00 09/08/17 07:38 (Atrovent Neb) 0.5 mg Q6HR NEB PRN NEB 09/06/17 13:00 (Lopressor) 50 mg BID PO 09/06/17 21:00 09/08/17 07:38 (Ultram) 50 mg Q4H PRN PO 09/06/17 13:00 09/08/17 01:55 (Flonase Baron Spr) 1 spray BID EACH NARE 09/06/17 21:00 09/07/17 21:00 (Restoril) 30 mg HS PRN PO 09/06/17 13:00 Pharmacy Profile Note 0 ml @ 0 mls/hr UNSCH OTHER 09/06/17 16:15 Miscellaneous Information Patient in critical care unit? Ass... Q361D .XX 09/06/17 16:45 (Chlorhexidine 2% Cloth) 3 pack DAILY@04 TOPICAL 09/07/17 04:00 09/11/17 04:01 (Chlorhexidine 2% Cloth) 3 pack UNSCH PRN TOPICAL 09/06/17 16:45 09/11/17 16:40 Vancomycin HCl 1250 mg/Sodium Chloride 262.5 ml @ 250 mls/hr Q12H IV 09/06/17 20:00 09/08/17 07:38 Miscellaneous Information SPECIFIC LAB TO BE DRAWN:VANCOMYCON TROUGH DATE TO... ONCE ONCE .XX 09/08/17 19:45 09/08/17 19:46 Vital Signs / I&O Vital Signs Date Time Temp Pulse Resp B/P (MAP) Pulse Ox O2 Delivery O2 Flow Rate FiO2 09/08/17 07:30 93 21 09/08/17 06:00 60 09/08/17 04:00 98.5 58 17 134/66 (88) 93 09/08/17 04:00 59 09/08/17 02:00 76 09/08/17 00:00 98.2 76 16 128/76 (93) 94 09/08/17 00:00 76 09/07/17 22:00 76 09/07/17 20:00 80 09/07/17 20:00 80 18 135/73 (93) 92 09/07/17 18:00 79 09/07/17 16:00 98.3 78 18 129/65 (86) 93 09/07/17 16:00 78 09/07/17 14:00 78 09/07/17 12:00 98.5 58 14 135/68 (90) 94 09/07/17 12:00 58 09/07/17 10:00 74 I/O 09/07/17 09/07/17 09/07/17 09/08/17 09/08/17 09/08/17 07:00 15:00 23:00 07:00 15:00 23:00 Intake Total 480 ml 1487.5 ml 480 ml Output Total 600 ml 2050 ml 1000 ml Balance -120 ml -562.5 ml -520 ml Intake Oral 480 ml 960 ml 480 ml IV Total 527.5 ml Output Urine Total 600 ml 2050 ml 1000 ml # Bowel Movements 0 0 1 Physical Exam GENERAL: Well developed, well nourished. No acute distress. HEENT: Jugular venous pressure is normal. CHEST: Lungs clear anteriorly. CARDIAC: Regular rate and rhythm without S3, S4, or murmur. ABDOMEN: Soft, nontender, no hepatosplenomegaly. Bowel sounds present. EXTREMITIES: No clubbing, cyanosis, or edema. 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 Patient s/p MRSA bacteremia. Remains afebrile. No leukocytosis. Appreciate Dr. Gold's input. Blood cultures negative to date. Tentative placement new pacemaker on the right Tuesday. Echo very limited study, suggests reduced ejection fraction though suspect not as low as reported. Will check MUGA scan. If EF < 35% will have to consider ICD implant instead of pacemaker. (2) Paroxysmal atrial flutter ICD Codes: I48.92 - Unspecified atrial flutter Status: Chronic Plan: Mostly in atrial flutter now, with low to controlled HR's. Fairly high atrial arrhythmia burden on recent pacemaker checks (>80%). Thromboembolic risk low although may be higher now with echo suggesting reduced ejection fraction. To continue daily baby aspirin and beta rashida. To check MUGA scan ; if EF reduced consider anticoagulation therapy. (3) Peripheral vascular disease ICD Codes: I73.9 - Peripheral vascular disease, unspecified Status: Chronic Plan: Severe, bilateral PVD at multiple levels on recent CTA. No rest pain. To address and treat once pacemaker issues resolved. Code Status full code Discussed Condition With patient, at length Problem Qualifiers (1) Infection of pacemaker pocket: Qualified Codes: T82.7XXA - Infection and inflammatory reaction due to other cardiac and vascular devices, implants and grafts, initial encounter Derek Gonsalves MD Sep 08, 2017 08:27
[2017-09-08] MEDS ORDERED: CHLORHEXIDINE GLUCONATE 2 % 1 PACK (2 CLOTHS) TOPICAL SCH (08:30)
[2017-09-08] MEDS ORDERED: POVIDONE IODINE 5% (ANTISEPSIS KIT) 4 APPLICATIONS TOPICAL SCH (08:30)
[2017-09-08] MEDS ORDERED: MUPIROCIN 2% OINT 1 APPLIC/GM SYR EACH NARE SCH (08:30)
--- NOTE | 2017-09-08 14:04 | RADRPT ---
EXAM DATE/TIME: 09/08/2017 10:49 [place] COMPARISON: No previous studies available for comparison. INDICATIONS : Suspected cardiomyopathy. DOSE: 20.3 mCi Tc99m Ultratag labeled red blood cells IV PROJECTIONS: ANT, ICELANDIC and LPO EF: 63% MEDICAL HISTORY : Chronic obstructive pulmonary disease. Atrial flutter. SURGICAL HISTORY : Pacemaker. Bilateral hips surgery. ENCOUNTER: Initial ACUITY: 1 day PAIN SCALE: 3/10 LOCATION: chest TECHNIQUE: Following the modified in [employer] labeling of autologous red blood cells and reinjection, planar image s gated to the ECG cycle were obtained in specified projections. Fourier analysis and calculation of ejection fraction were performed. FINDINGS: CHAMBER-SIZE: There is normal size and configuration to the left ventricle, right ventricle, and atria. WALL MOTION: No wall motion abnormalities seen. No segmental hypokinesia is observed. MISCELLANEOUS: No abnormal accumulation of red cells is seen. CONCLUSION: Normal wall motion throughout with an estimated ejection fraction of 63%. Gregorio Macario MD on September 08, 2017 at 14:00 Board Certified Radiologist. This report was verified electronically.
[2017-09-09] VITALS (16 sets, daily range): BP systolic 115–160; BP diastolic 65–90; PULSE 58–85; RESP 14–21; TEMP 98–99.3; O2SAT 92–96
[2017-09-09] MEDS: traMADol HCL 50 MG TAB PO PRN ×3 (02:41→11:48)
[2017-09-09] MEDS: SODIUM CHLOR 0.9% 1000 ML INJ 1,000 ML IV SCH ×2 (06:30→21:04)
[2017-09-09] MEDS: CHLORHEXIDINE GLUCONATE 2 % 1 PACK (2 CLOTHS)(taper/protocol) TOPICAL SCH (06:41)
[2017-09-09] MEDS: NS 1000 ML IV SCH ×2 (06:44→08:23)
[2017-09-09 07:24] LABS: AUTOMATED NEUTROPHIL # 5.8 TH/MM3 (1.8-7.7); BASOPHIL # 0.1 TH/MM3 (0-0.2); BASOPHIL % 0.5 % (0.0-2.0); EOSINOPHIL # 0.4 TH/MM3 (0-0.4); EOSINOPHIL % 3.8 % (0.0-4.0); HEMATOCRIT 41.8 % (39.0-51.0); HEMOGLOBIN 13.8 GM/DL (13.0-17.0); LYMPH % 21.1 % (9.0-44.0); MEAN CELL VOLUME 95.6 FL (80.0-100.0); MEAN CORPUSCULAR HEMOGLOBIN 31.6 PG (27.0-34.0); MEAN PLATELET VOLUME 7.4 FL (7.0-11.0); MONO % 14.2 % (0.0-8.0); MONOCYTE # 1.4 TH/MM3 (0-0.9); NEUT % 60.4 % (16.0-70.0); PLATELET COUNT 165 TH/MM3 (150-450); RED BLOOD COUNT 4.38 MIL/MM3 (4.50-5.90); RED CELL DISTRIBUTION WIDTH 13.3 % (11.6-17.2); WHITE BLOOD COUNT 9.6 TH/MM3 (4.0-11.0)
[2017-09-09 07:35] LABS: BICARBONATE 28.6 MEQ/L (21.0-32.0); CALCIUM 8.4 MG/DL (8.5-10.1); CREATININE 0.56 MG/DL (0.60-1.30)
[2017-09-09] MEDS: CIPROFLOXACIN 500 MG TAB PO SCH (08:22)
[2017-09-09] MEDS: METOPROLOL TARTRATE 50 MG TAB PO SCH ×2 (08:22→21:03)
[2017-09-09] MEDS: ASPIRIN EC 81 MG TABEC PO SCH (08:22)
[2017-09-09] MEDS: FUROSEMIDE 40 MG TAB PO SCH (08:22)
[2017-09-09] MEDS: VANCOMYCIN INJ 1,250 MG in SODIUM CHLOR 0.9% 250 ML INJ 250 ML IV SCH (08:25)
[2017-09-09] MEDS: FLUTICASONE PROPIONATE 50 MCG/ACT 16 GM NASAL SPRAY EACH NARE SCH ×2 (08:25→21:00)
[2017-09-09] MEDS: BUDESONIDE-FORMOTEROL 160/4.5 MCG INHALER INH SCH ×2 (08:25→21:00)
[2017-09-09] MEDS ORDERED: ceFAZolin INJ 1,000 MG in SODIUM CHLORIDE 0.9% INJ 250 ML IV SCH (10:00)
--- NOTE | 2017-09-09 11:48 | PD.CARD.PN ---
Subjective Subjective Remarks No CP, dyspnea, dizziness, palpitations. Objective Medications Item Value Date Time Aspirin 81 mg 09/07/17 09 (Ecotrin Ec) DAILY/PO 09/09/17821 Furosemide 40 mg 09/07/17 09 (Lasix) DAILY/PO 09/09/17821 Metoprolol 50 mg 09/06/17 2100 Tartrate BID/PO 09/09/17 08 (Lopressor) Current Medications Medications (Trade) Dose Ordered Sig/Srikanth Route Start Time Stop Time Status Last Admin Sodium Chloride 1,000 ml @ 30 mls/hr Q24H IV 09/06/17 08:00 09/09/17 08:23 (Proair Hfa Inh) 1 puff Q4H PRN INH 09/06/17 13:00 (Ecotrin Ec) 81 mg DAILY PO 09/07/17 09:00 09/09/17 08:22 (Symbicort 160-4.5 Mcg Inh) 1 puff Q12HR INH 09/06/17 21:00 09/09/17 08:25 (Cipro) 500 mg BID PO 09/06/17 21:00 09/09/17 08:22 (Lasix) 40 mg DAILY PO 09/07/17 09:00 09/09/17 08:22 (Atrovent Neb) 0.5 mg Q6HR NEB PRN NEB 09/06/17 13:00 (Lopressor) 50 mg BID PO 09/06/17 21:00 09/09/17 08:22 (Ultram) 50 mg Q4H PRN PO 09/06/17 13:00 09/09/17 06:34 (Flonase Baron Spr) 1 spray BID EACH NARE 09/06/17 21:00 09/08/17 21:00 (Restoril) 30 mg HS PRN PO 09/06/17 13:00 Pharmacy Profile Note 0 ml @ 0 mls/hr UNSCH OTHER 09/06/17 16:15 Miscellaneous Information Patient in critical care unit? Ass... Q361D .XX 09/06/17 16:45 (Chlorhexidine 2% Cloth) 3 pack DAILY@04 TOPICAL 09/07/17 04:00 09/11/17 04:01 09/09/17 06:41 (Chlorhexidine 2% Cloth) 3 pack UNSCH PRN TOPICAL 09/06/17 16:45 09/11/17 16:40 Vancomycin HCl 1250 mg/Sodium Chloride 262.5 ml @ 250 mls/hr Q12H IV 09/06/17 20:00 09/09/17 08:25 Sodium Chloride 1,000 ml @ 125 mls/hr Q8H IV 09/09/17 05:00 09/09/17 06:30 Vital Signs / I&O Vital Signs Date Time Temp Pulse Resp B/P (MAP) Pulse Ox O2 Delivery O2 Flow Rate FiO2 09/09/17 10:00 58 09/09/17 08:00 79 09/09/17 08:00 98.8 79 21 150/83 (105) 93 09/09/17 07:15 77 09/09/17 07:12 93 21 09/09/17 06:00 78 09/09/17 04:00 77 09/09/17 02:00 78 09/09/17 00:00 98.0 77 16 126/79 (95) 92 09/09/17 00:00 77 09/08/17 23:00 76 17 127/75 (92) 92 09/08/17 22:00 80 20 136/73 (94) 93 09/08/17 22:00 80 09/08/17 21:00 81 19 131/70 (90) 93 09/08/17 20:00 81 09/08/17 20:00 98.2 81 18 139/78 (98) 94 09/08/17 20:00 81 09/08/17 19:02 96 21 09/08/17 18:00 79 09/08/17 16:00 80 09/08/17 16:00 98.6 80 18 139/70 (93) 95 09/08/17 14:00 78 09/08/17 12:00 79 09/08/17 12:00 98.6 79 16 106/55 (72) 94 I/O 09/08/17 09/08/17 09/08/17 09/09/17 09/09/17 09/09/17 07:00 15:00 23:00 07:00 15:00 23:00 Intake Total 480 ml 1222.5 ml 750 ml Output Total 1000 ml 900 ml 600 ml Balance -520 ml 322.5 ml 150 ml Intake Oral 480 ml 960 ml 480 ml IV Total 262.5 ml 270 ml Output Urine Total 1000 ml 900 ml 600 ml # Bowel Movements 1 1 0 Physical Exam GENERAL: Well developed, well nourished. No acute distress. HEENT: Jugular venous pressure is normal. CHEST: Diminished breath sounds diffusely. CARDIAC: Regular rate and rhythm without S3, S4, or murmur. ABDOMEN: Soft, nontender, no hepatosplenomegaly. Bowel sounds present. EXTREMITIES: No clubbing, cyanosis, or edema. Laboratory Laboratory Tests Test 09/08/17 21:40 09/09/17 04:10 Vancomycin Level Trough 9.2 MCG/ML White Blood Count 9.6 TH/MM3 Red Blood Count 4.38 MIL/MM3 Hemoglobin 13.8 GM/DL Hematocrit 41.8 % Mean Corpuscular Volume 95.6 FL Mean Corpuscular Hemoglobin 31.6 PG Mean Corpuscular Hemoglobin Concent 33.0 % Red Cell Distribution Width 13.3 % Platelet Count 165 TH/MM3 Mean Platelet Volume 7.4 FL Neutrophils (%) (Auto) 60.4 % Lymphocytes (%) (Auto) 21.1 % Monocytes (%) (Auto) 14.2 % Eosinophils (%) (Auto) 3.8 % Basophils (%) (Auto) 0.5 % Neutrophils # (Auto) 5.8 TH/MM3 Lymphocytes # (Auto) 2.0 TH/MM3 Monocytes # (Auto) 1.4 TH/MM3 Eosinophils # (Auto) 0.4 TH/MM3 Basophils # (Auto) 0.1 TH/MM3 CBC Comment DIFF FINAL Differential Comment Blood Urea Nitrogen 21 MG/DL Creatinine 0.56 MG/DL Random Glucose 100 MG/DL Calcium Level 8.4 MG/DL Sodium Level 143 MEQ/L Potassium Level 3.9 MEQ/L Chloride Level 107 MEQ/L Carbon Dioxide Level 28.6 MEQ/L Anion Gap 7 MEQ/L Estimat Glomerular Filtration Rate 145 ML/MIN Assessment and Plan Problem List: (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 Patient s/p MRSA bacteremia. Remains afebrile. No leukocytosis. Appreciate Dr. Gold's input. Blood cultures negative to date. However, pacemaker lead tip culture positive for MRSA. EF 62% on MUGA scan. REC delay pacemaker re-implant to Tuesday, check another set of blood cultures (2) Paroxysmal atrial flutter ICD Codes: I48.92 - Unspecified atrial flutter Status: Chronic Plan: Stable overnight. Mostly in atrial flutter now, with low to controlled HR's. Fairly high atrial arrhythmia burden on recent pacemaker checks (>80%). Thromboembolic risk low. To continue daily baby aspirin and beta rashida. (3) Peripheral vascular disease ICD Codes: I73.9 - Peripheral vascular disease, unspecified Status: Chronic Plan: Severe, bilateral PVD at multiple levels on recent CTA. No rest pain. To address and treat once pacemaker issues resolved. Code Status full code Discussed Condition With patient and Problem Qualifiers (1) Infection of pacemaker pocket: Qualified Codes: T82.7XXA - Infection and inflammatory reaction due to other cardiac and vascular devices, implants and grafts, initial encounter Derek Gonsalves MD Sep 09, 2017 11:48
[2017-09-09] MEDS ORDERED: MORPHINE SULFATE 8 MG/ML INJ IV PUSH PRN (12:00)
--- NOTE | 2017-09-09 12:32 | HHI.IDPN ---
Note Infectious Disease Note Patient notes feeling okay. No new complaints. Afebrile. Pacemaker wire tip culture has MRSA. Blood culture has no growth. He denies chills or nausea or vomiting. Patient had positive blood culture for MRSA in June 2017. At that time he had 4 positive blood culture bottles. He reports to me that the blood cultures were repeated at outside lab and these were negative. 67-year-old white male who underwent placement of a dual-chamber pacemaker on 05/16/2017, because of symptomatic sick sinus syndrome. Patient noted redness of the pacemaker site approximately 3 weeks after the device was placed. He was given oral antibiotics and the redness persisted despite a second round of antibiotics. He was admitted for extraction of the pacemaker. PAST MEDICAL HISTORY: COPD, osteoarthritis, paroxysmal atrial flutter, pacemaker implantation, left hip replacement, right hip replacement. ALLERGIES: NO KNOWN DRUG ALLERGIES. MEDICATIONS: Current Medications Medications (Trade) Dose Ordered Sig/Srikanth Route PRN Reason Start Time Stop Time Status Last Admin Dose Admin Sodium Chloride 1,000 ml @ 30 mls/hr Q24H IV 09/06/17 08:00 09/09/17 08:23 Albuterol Sulfate (Proair Hfa Inh) 1 puff Q4H PRN INH SHORTNESS OF BREATH 09/06/17 13:00 Aspirin (Ecotrin Ec) 81 mg DAILY PO 09/07/17 09:00 09/09/17 08:22 Budesonide/ Formoterol Fumarate (Symbicort 160-4.5 Mcg Inh) 1 puff Q12HR INH 09/06/17 21:00 09/09/17 08:25 Ciprofloxacin (Cipro) 500 mg BID PO 09/06/17 21:00 09/09/17 08:22 Furosemide (Lasix) 40 mg DAILY PO 09/07/17 09:00 09/09/17 08:22 Ipratropium [place] (Atrovent Neb) 0.5 mg Q6HR NEB PRN NEB SHORTNESS OF BREATH 09/06/17 13:00 Metoprolol Tartrate (Lopressor) 50 mg BID PO 09/06/17 21:00 09/09/17 08:22 Tramadol HCl (Ultram) 50 mg Q4H PRN PO PAIN 09/06/17 13:00 09/09/17 11:48 Fluticasone Propionate (Flonase Baron Spr) 1 spray BID EACH NARE 09/06/17 21:00 09/08/17 21:00 Temazepam (Restoril) 30 mg HS PRN PO INSOMNIA 09/06/17 13:00 Pharmacy Profile Note 0 ml @ 0 mls/hr UNSCH OTHER 09/06/17 16:15 Miscellaneous Information Patient in critical care unit? Ass... Q361D .XX 09/06/17 16:45 Chlorhexidine Gluconate (Chlorhexidine 2% Cloth) 3 pack DAILY@04 TOPICAL 09/07/17 04:00 09/11/17 04:01 09/09/17 06:41 Chlorhexidine Gluconate (Chlorhexidine 2% Cloth) 3 pack UNSCH PRN TOPICAL HYGIENIC CARE 09/06/17 16:45 09/11/17 16:40 Vancomycin HCl 1250 mg/Sodium Chloride 262.5 ml @ 250 mls/hr Q12H IV 09/06/17 20:00 09/09/17 08:25 Sodium Chloride 1,000 ml @ 125 mls/hr Q8H IV 09/09/17 05:00 09/09/17 06:30 Alprazolam (Xanax) 0.25 mg TID PO 09/09/17 13:00 UNV Morphine Sulfate (Morphine Inj) 5 mg Q4H PRN IV PUSH PAIN SCALE 5 TO 10 09/09/17 12:00 UNV Acetaminophen/ Hydrocodone Bitart ([place] 5-325 Mg) 1 tab Q4H PRN PO PAIN GREATER THAN 5 09/09/17 12:00 UNV OBJECTIVE: Vital Signs Date Time Temp Pulse Resp B/P (MAP) Pulse Ox O2 Delivery O2 Flow Rate FiO2 09/09/17 10:00 58 09/09/17 08:00 79 09/09/17 08:00 98.8 79 21 150/83 (105) 93 09/09/17 07:15 77 09/09/17 07:12 93 21 09/09/17 06:00 78 09/09/17 04:00 77 09/09/17 02:00 78 09/09/17 00:00 98.0 77 16 126/79 (95) 92 09/09/17 00:00 77 09/08/17 23:00 76 17 127/75 (92) 92 09/08/17 22:00 80 20 136/73 (94) 93 09/08/17 22:00 80 09/08/17 21:00 81 19 131/70 (90) 93 09/08/17 20:00 81 09/08/17 20:00 98.2 81 18 139/78 (98) 94 09/08/17 20:00 81 09/08/17 19:02 96 21 09/08/17 18:00 79 09/08/17 16:00 80 09/08/17 16:00 98.6 80 18 139/70 (93) 95 09/08/17 14:00 78 Laboratory Tests Test 09/09/17 04:10 White Blood Count 9.6 TH/MM3 Red Blood Count 4.38 MIL/MM3 Hemoglobin 13.8 GM/DL Hematocrit 41.8 % Mean Corpuscular Volume 95.6 FL Mean Corpuscular Hemoglobin 31.6 PG Mean Corpuscular Hemoglobin Concent 33.0 % Red Cell Distribution Width 13.3 % Platelet Count 165 TH/MM3 Mean Platelet Volume 7.4 FL Neutrophils (%) (Auto) 60.4 % Lymphocytes (%) (Auto) 21.1 % Monocytes (%) (Auto) 14.2 % Eosinophils (%) (Auto) 3.8 % Basophils (%) (Auto) 0.5 % Neutrophils # (Auto) 5.8 TH/MM3 Lymphocytes # (Auto) 2.0 TH/MM3 Monocytes # (Auto) 1.4 TH/MM3 Eosinophils # (Auto) 0.4 TH/MM3 Basophils # (Auto) 0.1 TH/MM3 CBC Comment DIFF FINAL Differential Comment Laboratory Tests Test 09/08/17 03:15 09/09/17 04:10 Creatinine 0.69 MG/DL 0.56 MG/DL Estimat Glomerular Filtration Rate 114 ML/MIN 145 ML/MIN Blood Urea Nitrogen 21 MG/DL Random Glucose 100 MG/DL Calcium Level 8.4 MG/DL Sodium Level 143 MEQ/L Potassium Level 3.9 MEQ/L Chloride Level 107 MEQ/L Carbon Dioxide Level 28.6 MEQ/L Anion Gap 7 MEQ/L Microbiology Date/Time Source Procedure Growth Status 09/06/17 15:22 Blood Peripheral Aerobic Blood Culture - Preliminary NO GROWTH IN 3 DAYS Resulted 09/06/17 15:22 Blood Peripheral Anaerobic Blood Culture - Preliminary NO GROWTH IN 3 DAYS Resulted 09/06/17 15:17 Blood Peripheral Aerobic Blood Culture - Preliminary NO GROWTH IN 3 DAYS Resulted 09/06/17 15:17 Blood Peripheral Anaerobic Blood Culture - Preliminary NO GROWTH IN 3 DAYS Resulted IMAGING: [facility] 09/08/17 0000 Signed Impressions: Service Date/Time: August 10:49 - CONCLUSION: Normal wall motion throughout with an estimated ejection fraction of 63%%. Gregorio Macario MD PHYSICAL EXAMINATION: GENERAL: No acute distress. HEENT: Extraocular movements grossly intact. Pupils reactive to light. No icterus. Oropharynx, moist mucosa, no lesions. NECK: Supple without adenopathy or swelling.. LUNGS: Decreased clear breath sounds throughout. HEART: Regular S1 and S2. No murmurs, rubs or gallops. CHEST: The left chest wall has swelling at the area where the pacemaker was removed. Dressing in place. ABDOMEN: Bowel sounds present, soft, nontender. EXTREMITIES: No clubbing, cyanosis or edema. SKIN: No rash. NEUROLOGIC: No gross focal findings. PSYCHIATRIC: Calm and cooperative. IMPRESSION: 1. Pacemaker infection. Status post explantation of pacemaker at left chest wall. 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 2. Chest wall infection at pacemaker pocket. 3. History of pacemaker implantation in 04/2017. 4. History of methicillin-resistant Staphylococcus aureus bacteremia. RECOMMENDATIONS: 1. Hold off on pacemaker implantation and repeat the blood cultures today 2. Continue Vancomycin. 3. Resume rifampin. 4. Stop ciprofloxacin. 5. Obtain another set of blood cultures. 6. Contact isolation for MRSA. Pacemaker insertion has been delayed after my discussion with Dr. Gonsalves. In light of the positive MRSA culture from the pacer wire the decision is to treat with antibiotics and wait for results of another set of blood cultures Which will be obtained today. Patient was upset about not having the pacemaker placed today. However I spent 10 minutes discussing The reason for delay and he is understandable. He will need to remain on IV antibiotics for 4 weeks after the pacemaker is implanted. The pacemaker can be placed if the new blood cultures drawn today does not show MRSA. Discussed with BILLY. Candido Gold MD Sep 09, 2017 12:32
[2017-09-09] MEDS: ALPRAZolam 0.25 MG TAB PO SCH ×2 (14:50→18:00)
[2017-09-09] MEDS: ACETAMINOPHEN/HYDROcodone 325 MG/5 MG TAB PO PRN ×2 (16:56→21:02)
[2017-09-09] MEDS: RIFAMPIN 150 MG CAP PO SCH (21:01)
[2017-09-09] MEDS: VANCOMYCIN INJ 1,750 MG in SODIUM CHLORID 0.9% 500 ML INJ 500 ML IV SCH (21:03)
[2017-09-10] VITALS (15 sets, daily range): BP systolic 120–153; BP diastolic 68–80; PULSE 60–83; RESP 13–23; TEMP 98–99.3; O2SAT 92–97
[2017-09-10] MEDS: ACETAMINOPHEN/HYDROcodone 325 MG/5 MG TAB PO PRN ×5 (00:17→20:15)
[2017-09-10] MEDS: ALPRAZolam 0.25 MG TAB PO SCH ×3 (02:45→18:00)
[2017-09-10] MEDS: CHLORHEXIDINE GLUCONATE 2 % 1 PACK (2 CLOTHS)(taper/protocol) TOPICAL SCH (04:38)
[2017-09-10] MEDS: NS 1000 ML IV SCH (04:40)
[2017-09-10] MEDS: SODIUM CHLOR 0.9% 1000 ML INJ 1,000 ML IV SCH ×3 (04:40→20:09)
[2017-09-10 04:43] LABS: CREATININE 0.67 MG/DL (0.60-1.30)
--- NOTE | 2017-09-10 06:25 | PD.CARD.PN ---
Subjective Subjective Remarks No CP, dyspnea, dizziness, palpitations. Slept better last night. Objective Medications Item Value Date Time Aspirin 81 mg 09/07/17 0900 (Ecotrin Ec) DAILY/PO 09/09/17821 Furosemide 40 mg 09/07/17 0900 (Lasix) DAILY/PO 09/09/17821 Metoprolol 50 mg 09/06/17 2100 Tartrate BID/PO 09/09/172102 (Lopressor) Current Medications Medications (Trade) Dose Ordered Sig/Srikanth Route Start Time Stop Time Status Last Admin Sodium Chloride 1,000 ml @ 30 mls/hr Q24H IV 09/06/17 08:00 09/10/17 04:40 (Proair Hfa Inh) 1 puff Q4H PRN INH 09/06/17 13:00 (Ecotrin Ec) 81 mg DAILY PO 09/07/17 09:00 09/09/17 08:22 (Symbicort 160-4.5 Mcg Inh) 1 puff Q12HR INH 09/06/17 21:00 09/09/17 21:00 (Lasix) 40 mg DAILY PO 09/07/17 09:00 09/09/17 08:22 (Atrovent Neb) 0.5 mg Q6HR NEB PRN NEB 09/06/17 13:00 (Lopressor) 50 mg BID PO 09/06/17 21:00 09/09/17 21:03 (Ultram) 50 mg Q4H PRN PO 09/06/17 13:00 09/09/17 11:48 (Flonase Baron Spr) 1 spray BID EACH NARE 09/06/17 21:00 09/09/17 21:00 (Restoril) 30 mg HS PRN PO 09/06/17 13:00 Pharmacy Profile Note 0 ml @ 0 mls/hr UNSCH OTHER 09/06/17 16:15 Miscellaneous Information Patient in critical care unit? Ass... Q361D .XX 09/06/17 16:45 (Chlorhexidine 2% Cloth) 3 pack DAILY@04 TOPICAL 09/07/17 04:00 09/11/17 04:01 09/10/17 04:38 (Chlorhexidine 2% Cloth) 3 pack UNSCH PRN TOPICAL 09/06/17 16:45 09/11/17 16:40 Sodium Chloride 1,000 ml @ 125 mls/hr Q8H IV 09/09/17 05:00 09/10/17 04:40 (Xanax) 0.25 mg TID PO 09/09/17 13:00 09/10/17 02:45 (Morphine Inj) 5 mg Q4H PRN IV PUSH 09/09/17 12:00 ([place] 5-325 Mg) 1 tab Q4H PRN PO 09/09/17 12:00 09/10/17 04:38 (Rifampin) 300 mg Q12HR PO 09/09/17 21:00 09/09/17 21:01 Vancomycin HCl 1750 mg/Sodium Chloride 517.5 ml @ 250 mls/hr Q12H IV 09/09/17 20:00 09/09/17 21:03 Miscellaneous Information SPECIFIC LAB TO BE DRAWN:VANCOMYCIN TROUGH DATE TO... ONCE ONCE .XX 09/11/17 07:45 09/11/17 07:46 Vital Signs / I&O Vital Signs Date Time Temp Pulse Resp B/P (MAP) Pulse Ox O2 Delivery O2 Flow Rate FiO2 09/10/17 04:12 81 09/10/17 04:00 98.1 81 19 153/70 (97) 95 09/10/17 03:00 80 19 135/80 (98) 94 09/10/17 02:00 76 09/10/17 02:00 76 18 130/78 (95) 93 09/10/17 01:00 77 18 121/70 (87) 92 09/10/17 00:00 98.0 77 14 124/73 (90) 94 09/10/17 00:00 77 09/09/17 23:00 77 14 128/70 (89) 93 09/09/17 22:00 79 09/09/17 22:00 79 17 115/66 (82) 93 09/09/17 21:00 81 20 120/65 (83) 92 09/09/17 20:00 98.5 82 19 123/73 (90) 93 09/09/17 20:00 81 09/09/17 20:00 82 09/09/17 19:05 93 21 09/09/17 18:00 83 09/09/17 16:00 80 09/09/17 16:00 99.3 80 21 143/77 (99) 09/09/17 14:00 85 09/09/17 12:00 79 09/09/17 12:00 98.6 79 19 160/90 (113) 96 09/09/17 10:00 58 09/09/17 08:00 79 09/09/17 08:00 98.8 79 21 150/83 (105) 93 09/09/17 07:15 77 09/09/17 07:12 93 21 I/O 09/09/17 09/09/17 09/09/17 09/10/17 09/10/17 09/10/17 07:00 15:00 23:00 07:00 15:00 23:00 Intake Total 750 ml 262.5 ml 2040 ml 1250 ml Output Total 600 ml 1250 ml Balance 150 ml 262.5 ml 790 ml 1250 ml Intake Oral 480 ml 500 ml IV Total 270 ml 262.5 ml 1540 ml 1250 ml Output Urine Total 600 ml 1250 ml # Bowel Movements 0 0 Physical Exam GENERAL: Well developed, well nourished. No acute distress. HEENT: Jugular venous pressure is normal. CHEST: Diminished breath sounds diffusely. CARDIAC: Regular rate and rhythm without S3, S4, or murmur. ABDOMEN: Soft, nontender, no hepatosplenomegaly. Bowel sounds present. EXTREMITIES: No clubbing, cyanosis, or edema. 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 Patient also s/p MRSA bacteremia. Remains afebrile. Initial blood cultures negative to date. However, pacemaker lead tip culture positive for MRSA. EF 62% on MUGA scan. REC delay pacemaker re-implant to Tuesday, await results of most recent blood cultures (2) Paroxysmal atrial flutter ICD Codes: I48.92 - Unspecified atrial flutter Status: Chronic Plan: Stable overnight. Mostly in atrial flutter now, with controlled HR's. Fairly high atrial arrhythmia burden on recent pacemaker checks (>80%). Thromboembolic risk low. To continue daily baby aspirin and beta rashida. (3) Peripheral vascular disease ICD Codes: I73.9 - Peripheral vascular disease, unspecified Status: Chronic Plan: Severe, bilateral PVD at multiple levels on recent CTA. No rest pain. To address and treat once pacemaker issues resolved. Code Status full code Discussed Condition With patient Problem Qualifiers (1) Infection of pacemaker pocket: Qualified Codes: T82.7XXA - Infection and inflammatory reaction due to other cardiac and vascular devices, implants and grafts, initial encounter Derek Gonsalves MD Sep 10, 2017 06:25
[2017-09-10] MEDS: RIFAMPIN 150 MG CAP PO SCH ×2 (08:38→20:09)
[2017-09-10] MEDS: VANCOMYCIN INJ 1,750 MG in SODIUM CHLORID 0.9% 500 ML INJ 500 ML IV SCH ×2 (08:38→20:10)
[2017-09-10] MEDS: FUROSEMIDE 40 MG TAB PO SCH (08:39)
[2017-09-10] MEDS: ASPIRIN EC 81 MG TABEC PO SCH (08:39)
[2017-09-10] MEDS: FLUTICASONE PROPIONATE 50 MCG/ACT 16 GM NASAL SPRAY EACH NARE SCH ×2 (08:40→20:11)
[2017-09-10] MEDS: BUDESONIDE-FORMOTEROL 160/4.5 MCG INHALER INH SCH ×2 (08:40→20:11)
[2017-09-10] MEDS: METOPROLOL TARTRATE 50 MG TAB PO SCH ×2 (08:42→20:10)
[2017-09-11] VITALS (17 sets, daily range): BP systolic 102–163; BP diastolic 58–78; PULSE 79–89; RESP 16–24; TEMP 98.4–99.4; O2SAT 92–96
[2017-09-11] MEDS: SODIUM CHLOR 0.9% 1000 ML INJ 1,000 ML IV SCH ×2 (01:17→14:13)
[2017-09-11] MEDS: CHLORHEXIDINE GLUCONATE 2 % 1 PACK (2 CLOTHS)(taper/protocol) TOPICAL SCH ×2 (03:13→03:47)
[2017-09-11] MEDS: ACETAMINOPHEN/HYDROcodone 325 MG/5 MG TAB PO PRN ×3 (03:50→22:03)
[2017-09-11] MEDS ORDERED: PHARMACY ORDERED LAB ONE (07:45)
--- NOTE | 2017-09-11 07:50 | PD.CARD.PN ---
Subjective Subjective Remarks No CP, dyspnea, dizziness, palpitations. Slept fairly well. Objective Medications Item Value Date Time Aspirin 81 mg 09/07/17899 (Ecotrin Ec) DAILY/PO 09/10/17838 Furosemide 40 mg 09/07/17899 (Lasix) DAILY/PO 09/10/1739 Metoprolol 50 mg 09/06/17 2100 Tartrate BID/PO 09/10/172009 (Lopressor) Current Medications Medications (Trade) Dose Ordered Sig/Srikanth Route Start Time Stop Time Status Last Admin Sodium Chloride 1,000 ml @ 30 mls/hr Q24H IV 09/06/17 08:00 09/10/17 04:40 (Proair Hfa Inh) 1 puff Q4H PRN INH 09/06/17 13:00 (Ecotrin Ec) 81 mg DAILY PO 09/07/17 09:00 09/10/17 08:39 (Symbicort 160-4.5 Mcg Inh) 1 puff Q12HR INH 09/06/17 21:00 09/10/17 20:11 (Lasix) 40 mg DAILY PO 09/07/17 09:00 09/10/17 08:39 (Atrovent Neb) 0.5 mg Q6HR NEB PRN NEB 09/06/17 13:00 (Lopressor) 50 mg BID PO 09/06/17 21:00 09/10/17 20:10 (Ultram) 50 mg Q4H PRN PO 09/06/17 13:00 09/09/17 11:48 (Flonase Baron Spr) 1 spray BID EACH NARE 09/06/17 21:00 09/10/17 08:40 (Restoril) 30 mg HS PRN PO 09/06/17 13:00 09/11/17 01:16 Pharmacy Profile Note 0 ml @ 0 mls/hr UNSCH OTHER 09/06/17 16:15 Miscellaneous Information Patient in critical care unit? Ass... Q361D .XX 09/06/17 16:45 (Chlorhexidine 2% Cloth) 3 pack UNSCH PRN TOPICAL 09/06/17 16:45 09/11/17 16:40 Sodium Chloride 1,000 ml @ 125 mls/hr Q8H IV 09/09/17 05:00 09/11/17 01:17 (Xanax) 0.25 mg TID PO 09/09/17 13:00 09/10/17 02:45 (Morphine Inj) 5 mg Q4H PRN IV PUSH 09/09/17 12:00 ([place] 5-325 Mg) 1 tab Q4H PRN PO 09/09/17 12:00 09/11/17 03:50 (Rifampin) 300 mg Q12HR PO 09/09/17 21:00 09/10/17 20:09 Vancomycin HCl 1750 mg/Sodium Chloride 517.5 ml @ 250 mls/hr Q12H IV 09/09/17 20:00 09/10/17 20:10 Vital Signs / I&O Vital Signs Date Time Temp Pulse Resp B/P (MAP) Pulse Ox O2 Delivery O2 Flow Rate FiO2 09/11/17 06:00 80 09/11/17 04:00 98.4 81 16 143/75 (97) 95 09/11/17 04:00 81 09/11/17 02:00 80 09/11/17 00:00 79 09/11/17 00:00 98.9 79 16 163/67 (99) 93 09/10/17 22:00 79 09/10/17 20:00 99.3 83 18 140/68 (92) 95 09/10/17 20:00 83 09/10/17 19:15 82 09/10/17 18:00 82 09/10/17 17:30 20 09/10/17 16:00 99.1 82 23 142/69 (93) 97 09/10/17 16:00 82 09/10/17 14:00 82 09/10/17 12:00 98.5 80 15 120/71 (87) 92 09/10/17 12:00 80 09/10/17 10:00 60 09/10/17 08:00 98.2 79 13 132/75 (94) 94 09/10/17 08:00 79 I/O 09/10/17 09/10/17 09/10/17 09/11/17 09/11/17 09/11/17 07:00 15:00 23:00 07:00 15:00 23:00 Intake Total 2050 ml 517 ml 1937 ml 1220 ml Output Total 800 ml 1350 ml 290 ml Balance 1250 ml 517 ml 587 ml 930 ml Intake Oral 800 ml 1350 ml 220 ml IV Total 1250 ml 517 ml 587 ml 1000 ml Output Urine Total 800 ml 1350 ml 290 ml # Bowel Movements 1 0 Physical Exam GENERAL: Well developed, well nourished. No acute distress. HEENT: Jugular venous pressure is normal. CHEST: Diminished breath sounds diffusely. CARDIAC: Regular rate and rhythm without S3, S4, or murmur. ABDOMEN: Soft, nontender, no hepatosplenomegaly. Bowel sounds present. EXTREMITIES: No clubbing, cyanosis, or edema. 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 Patient also s/p MRSA bacteremia. Remains afebrile. Initial blood cultures negative to date. EF 62 % on MUGA scan. REC pacemaker re-implant right chest Tuesday, providing most recent blood cultures negative (2) Paroxysmal atrial flutter ICD Codes: I48.92 - Unspecified atrial flutter Status: Chronic Plan: Stable overnight. Mostly in atrial flutter now, with controlled HR's. Fairly high atrial arrhythmia burden on recent pacemaker checks (>80%). Thromboembolic risk low. To continue daily baby aspirin and beta rashida. (3) Peripheral vascular disease ICD Codes: I73.9 - Peripheral vascular disease, unspecified Status: Chronic Plan: Severe, bilateral PVD at multiple levels on recent CTA. No rest pain. To address and treat once pacemaker issues resolved. Code Status full code Discussed Condition With patient Problem Qualifiers (1) Infection of pacemaker pocket: Qualified Codes: T82.7XXA - Infection and inflammatory reaction due to other cardiac and vascular devices, implants and grafts, initial encounter Derek Gonsalves MD Sep 11, 2017 07:50
[2017-09-11] MEDS ORDERED: POVIDONE IODINE 5% (ANTISEPSIS KIT) 4 APPLICATIONS TOPICAL SCH (08:00)
[2017-09-11] MEDS ORDERED: CHLORHEXIDINE GLUCONATE 2 % 1 PACK (2 CLOTHS) TOPICAL SCH (08:00)
[2017-09-11] MEDS ORDERED: MUPIROCIN 2% OINT 1 APPLIC/GM SYR EACH NARE SCH (08:00)
[2017-09-11] MEDS ORDERED: ceFAZolin 1,000 MG/NS 100 ML IV SCH ×2 (08:15)
[2017-09-11] MEDS: VANCOMYCIN INJ 1,750 MG in SODIUM CHLORID 0.9% 500 ML INJ 500 ML IV SCH ×2 (08:27→20:30)
[2017-09-11] MEDS: FLUTICASONE PROPIONATE 50 MCG/ACT 16 GM NASAL SPRAY EACH NARE SCH (08:28)
[2017-09-11] MEDS: BUDESONIDE-FORMOTEROL 160/4.5 MCG INHALER INH SCH ×2 (08:28→20:31)
[2017-09-11] MEDS: METOPROLOL TARTRATE 50 MG TAB PO SCH ×2 (08:29→20:31)
[2017-09-11] MEDS: ASPIRIN EC 81 MG TABEC PO SCH (08:29)
[2017-09-11] MEDS: ALPRAZolam 0.25 MG TAB PO SCH ×3 (08:30→17:46)
[2017-09-11] MEDS: FUROSEMIDE 40 MG TAB PO SCH (08:31)
[2017-09-11] MEDS: RIFAMPIN 150 MG CAP PO SCH ×2 (08:31→20:31)
[2017-09-12] VITALS (12 sets, daily range): BP systolic 120–143; BP diastolic 63–78; PULSE 79–82; RESP 16–32; TEMP 98.3–99; O2SAT 91–96
[2017-09-12] MEDS: FLUTICASONE PROPIONATE 50 MCG/ACT 16 GM NASAL SPRAY EACH NARE SCH ×3 (00:45→20:33)
[2017-09-12] MEDS: SODIUM CHLOR 0.9% 1000 ML INJ 1,000 ML IV SCH ×5 (00:45→20:00)
[2017-09-12] MEDS: BUDESONIDE-FORMOTEROL 160/4.5 MCG INHALER INH SCH ×2 (09:00→20:35)
[2017-09-12] MEDS: ALPRAZolam 0.25 MG TAB PO SCH ×3 (09:00→19:33)
[2017-09-12] MEDS: ASPIRIN EC 81 MG TABEC PO SCH (09:00)
[2017-09-12] MEDS: FUROSEMIDE 40 MG TAB PO SCH (09:01)
[2017-09-12] MEDS: RIFAMPIN 150 MG CAP PO SCH ×2 (09:01→20:33)
[2017-09-12] MEDS: METOPROLOL TARTRATE 50 MG TAB PO SCH ×2 (09:01→20:33)
[2017-09-12] MEDS: VANCOMYCIN INJ 1,750 MG in SODIUM CHLORID 0.9% 500 ML INJ 500 ML IV SCH (09:02)
[2017-09-12] MEDS ORDERED: ceFAZolin INJ 1,000 MG in SODIUM CHLORIDE 0.9% INJ 250 ML SCH (10:00)
--- NOTE | 2017-09-12 10:39 | HHI.IDPN ---
Note Infectious Disease Note Patient without complaints. Afebrile. Only complaint is discomfort where he is catheter enters the right side of the neck. Denies chills. Blood culture from 09/09 has no growth in 3 days. Extracted pacemaker wire tip culture from 09/06 has MRSA. Patient had positive blood culture for MRSA in June 2017. 67-year-old white male who underwent placement of a dual-chamber pacemaker on 05/16/2017, because of symptomatic sick sinus syndrome. Patient noted redness of the pacemaker site approximately 3 weeks after the device was placed. He was given oral antibiotics and the redness persisted despite a second round of antibiotics. He was admitted for extraction of the pacemaker. PAST MEDICAL HISTORY: COPD, osteoarthritis, paroxysmal atrial flutter, pacemaker implantation, left hip replacement, right hip replacement. ALLERGIES: NO KNOWN DRUG ALLERGIES. MEDICATIONS: Current Medications Medications (Trade) Dose Ordered Sig/Srikanth Route PRN Reason Start Time Stop Time Status Last Admin Dose Admin Albuterol Sulfate (Proair Hfa Inh) 1 puff Q4H PRN INH SHORTNESS OF BREATH 09/06/17 13:00 09/12/17 09:05 Aspirin (Ecotrin Ec) 81 mg DAILY PO 09/07/17 09:00 09/12/17 09:00 Budesonide/ Formoterol Fumarate (Symbicort 160-4.5 Mcg Inh) 1 puff Q12HR INH 09/06/17 21:00 09/12/17 09:00 Furosemide (Lasix) 40 mg DAILY PO 09/07/17 09:00 09/12/17 09:01 Ipratropium [place] (Atrovent Neb) 0.5 mg Q6HR NEB PRN NEB SHORTNESS OF BREATH 09/06/17 13:00 Metoprolol Tartrate (Lopressor) 50 mg BID PO 09/06/17 21:00 09/12/17 09:01 Tramadol HCl (Ultram) 50 mg Q4H PRN PO PAIN SCALE 1 TO 5 09/06/17 13:00 09/09/17 11:48 Fluticasone Propionate (Flonase Baron Spr) 1 spray BID EACH NARE 09/06/17 21:00 09/12/17 09:02 Temazepam (Restoril) 30 mg HS PRN PO INSOMNIA 09/06/17 13:00 09/11/17 01:16 Pharmacy Profile Note 0 ml @ 0 mls/hr UNSCH OTHER 09/06/17 16:15 Miscellaneous Information Patient in critical care unit? Ass... Q361D .XX 09/06/17 16:45 Alprazolam (Xanax) 0.25 mg TID PO 09/09/17 13:00 09/12/17 09:00 Morphine Sulfate (Morphine Inj) 5 mg Q4H PRN IV PUSH PAIN SCALE 5 TO 10 09/09/17 12:00 Acetaminophen/ Hydrocodone Bitart ([place] 5-325 Mg) 1 tab Q4H PRN PO PAIN GREATER THAN 5 09/09/17 12:00 09/11/17 22:03 Rifampin (Rifampin) 300 mg Q12HR PO 09/09/17 21:00 09/12/17 09:01 Vancomycin HCl 1750 mg/Sodium Chloride 517.5 ml @ 250 mls/hr Q12H IV 09/09/17 20:00 09/12/17 09:02 Sodium Chloride 1,000 ml @ 150 mls/hr Q6H40M IV 09/12/17 08:00 09/12/17 06:39 Povidone Iodine (Betadine 5% Antisepsis Kit) 1 applic ONCE TOPICAL 09/11/17 08:00 09/14/17 07:59 Mupirocin (Bactroban Nasal 2% Oint) 1 applic ONCE EACH NARE 09/11/17 08:00 09/14/17 07:59 09/11/17 17:46 Chlorhexidine Gluconate (Chlorhexidine 2% Cloth) 1 pack ONCE TOPICAL 09/11/17 08:00 09/14/17 07:59 Cefazolin Sodium 1000 mg/Sodium Chloride 100 ml @ 200 mls/hr BAG TURNER IV 09/11/17 08:15 09/14/17 08:14 OBJECTIVE: Vital Signs Date Time Temp Pulse Resp B/P (MAP) Pulse Ox O2 Delivery O2 Flow Rate FiO2 09/12/17 06:00 80 22 131/68 (89) 96 09/12/17 06:00 80 09/12/17 05:00 80 20 127/68 (87) 93 09/12/17 04:00 79 09/12/17 04:00 79 22 126/67 (86) 94 09/12/17 04:00 98.3 79 22 126/67 (86) 94 09/12/17 02:00 79 22 125/69 (87) 94 09/12/17 02:00 79 09/12/17 00:00 80 09/12/17 00:00 99.0 80 22 120/63 (82) 93 09/11/17 23:03 22 09/11/17 23:00 81 24 129/68 (88) 92 09/11/17 22:00 85 09/11/17 20:54 95 21 09/11/17 20:00 99.4 89 24 102/58 (73) 94 09/11/17 20:00 89 09/11/17 20:00 89 09/11/17 19:00 88 09/11/17 18:00 83 09/11/17 16:00 84 09/11/17 16:00 99.1 84 17 124/64 (84) 96 09/11/17 14:00 82 18 133/78 (96) 95 09/11/17 14:00 82 09/11/17 13:00 82 24 128/68 (88) 94 09/11/17 13:00 82 09/11/17 12:00 98.6 81 17 124/61 (82) 94 09/11/17 12:00 81 Microbiology Date/Time Source Procedure Growth Status 09/09/17 13:25 Blood Peripheral Aerobic Blood Culture - Preliminary NO GROWTH IN 2 DAYS Resulted 09/09/17 13:25 Blood Peripheral Anaerobic Blood Culture - Preliminary NO GROWTH IN 2 DAYS Resulted 09/09/17 13:20 Blood Peripheral Aerobic Blood Culture - Preliminary NO GROWTH IN 2 DAYS Resulted 09/09/17 13:20 Blood Peripheral Anaerobic Blood Culture - Preliminary NO GROWTH IN 2 DAYS Resulted IMAGING: [facility] 09/08/17 0000 Signed Impressions: Service Date/Time: August 10:49 - CONCLUSION: Normal wall motion throughout with an estimated ejection fraction of 63%%. Gregorio Macario MD PHYSICAL EXAMINATION: GENERAL: No acute distress. HEENT: Extraocular movements grossly intact. Pupils reactive to light. No icterus. Oropharynx, moist mucosa, no lesions. NECK: Supple. No adenopathy or swelling. LUNGS: Decreased clear breath sounds throughout. HEART: Regular S1 and S2. No murmurs, rubs or gallops. CHEST: The left chest wall has ecchymosis at the area of prior pacemaker. The skin is dry. ABDOMEN: Bowel sounds present, soft, nontender. EXTREMITIES: No clubbing, cyanosis or edema. SKIN: No rash. NEUROLOGIC: No gross focal findings. PSYCHIATRIC: Calm and cooperative. IMPRESSION: 1. Pacemaker infection. Status post explantation of pacemaker at left chest wall. 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 2. Chest wall infection at pacemaker pocket. 3. History of pacemaker implantation in 04/2017. 4. History of methicillin-resistant Staphylococcus aureus bacteremia. RECOMMENDATIONS: 1. Okay to place pacemaker today. 2. Continue Vancomycin. 3. Continue rifampin. 4. Dry gauze dressing to the left chest. 5. Case management to arrange for intravenous vancomycin after discharge. Plan on giving a complete 6 weeks of antibiotics from the time of pacemaker removal. Follow-up with Dr. Hooks upon discharge. Patient had already been seeing Dr. Hooks prior to admission. Orders for PICC line and intravenous antibiotics placed. I will follow after the pacemaker is inserted if he remains in the hospital. Candido Gold MD Sep 12, 2017 10:39
--- NOTE | 2017-09-12 10:49 | HHI.FF ---
Infusion Therapy Location of Infusion Therapy: Home Health Care IV Infusion Order Patient Information Patient Weight 84.5 kg Diagnosis: Diagnosis Pacemaker wire infection, MRSA. Coded Allergies: No Known Allergies (Unverified , 09/06/17) Administer Medication 1750mg IV Q12 hours Stop Treatment: October 18, 2017 Additional Information Venous access: PICC Line Additional Instructions [x] Peripheral flush and dressing changes per protocol [x] Implanted port and central barrel line operator: * Implanted port: 10 ml Normal Saline followed by 5 ml Heparin 100 units/ml Heparin flush after each use and monthly to maintain. [] May leave port accessed during therapy. [] May leave peripheral site accessed for duration of therapy. [x] If patient has SOB or respiratory distress, check oxygen saturation. If less than 90% or clinical signs of respiratory distress, administer oxygen at 2 L/min. via nasal cannula and notify physician. [x] Anaphylaxis/Reaction orders: * Stop infusion. * Keep IV line open with saline flush. * Notify physician. * Monitor vital signs every 15 minutes until symptoms resolve. * Check Oxygen saturation; Oxygen at 2 L/min. via nasal cannula if less than 90% or clinical signs of respiratory distress. * Administer diphenhydramine (Benadryl) 25 mg IV STAT, (unless patient has received as pre-med). May repeat once, if necessary. * Solu-Cortef 250 mg IVP over 30-60 seconds, use 100 mg vials for each dissolution. * Epinephrine (1mg/1 ml) 0.3 mg subcutaneously or IVP now with any signs of respiratory distress. * Check with physician for new additional pre-med orders if patient is re- challenged or re-treated. [x] May remove PICC line when treatment complete, after confirming with Physician. [x] If the patient is admitted to the hospital, the ED, or transferred via EVAC , complete transfer form including medication reconciliation order sheet. Laboratory Tests Weekly Labs: BMP, Vancomycin Trough Additional Information Creatinine Q 3 Days while on Vancomycin. Follow up with Dr Hooks, infectious disease in 1 week. Candido Gold MD Sep 12, 2017 10:49
[2017-09-12 11:04] LABS: CREATININE 0.44 MG/DL (0.60-1.30)
[2017-09-12 11:06] LABS: VANCOMYCIN TROUGH 12.3 MCG/ML (5.0-10.0)
[2017-09-12] MEDS ORDERED: LACTATED RINGER'S 1000 ML INJ 1,000 ML IV ONE (12:00)
[2017-09-12] MEDS ORDERED: PHENYLEPH/NS 1000 MCG/10 ML SYR IV ONE (12:00)
[2017-09-12] MEDS ORDERED: PROPOFOL 200 MG/20 ML AMP IV ONE (12:00)
[2017-09-12] MEDS ORDERED: LIDOCAINE HCL 1% PF 5 ML SYRINGE OTHER ONE (12:00)
--- NOTE | 2017-09-12 13:37 | CATHPROC ---
Patient Name: CECY BENNETT Study #: [id number] Initial MD: Derek Gonsalves Date of : 1950 Study Date: 09/12/2017 Cardiac Catheterization Report 09/12/2017 1:37:44 PM Financial #: [id number] 1 of 7 Patient Name: CECY BENNETT Study #: [id number] Initial MD: Derek Gonsalves Date of : 1950 Study Date: 09/12/2017 Entire Case Report Patient Information Patient Name CECY BENNETT Date of 1950 Age 67 years Financial # [id number] Gender M AlternateID Lab Number 6 Room Number 500 Height (in) 68.0 Height (cm) 172.7 BSA 1.98 Weight (lbs) 185.9 Weight (kg) 84.5 Patient Address/Phone Number Home Address [facility] Home Phone Number [facility] [phone] Study Information Study Number Admission Scheduled Start Study Start [id number] Sep 06 2017 3:50PM 09/12/2017 Sep 12 2017 12:11PM [place] Service Cardiac Pacer/ICD Admit Source Facility Department Other [facility] - Electronics Technology Instructor Physician and Clinical Staff Initial Derek Kumar Facility Manager Tereza Weber,RN Facility Manager Pollo Alcantara,RT(R) Other Anesthesia, RINK RAT Recorder Mercedes Watkins,SHOE SEWING MACHINE OPERATOR AND TENDER TECH2 Scrub Camelia López RCIS Procedures Performed Procedure Location (Site) Vessel Name Lead Insertion Venogram Subclav. Vein (Rt) Subclavian Vein 09/12/2017 1:37:44 PM Financial #: [id number] 2 of 7 Patient Name: CECY BENNETT Study #: [id number] Initial MD: Derek Gonsalves Date of : 1950 Study Date: 09/12/2017 Equipment Time Finance Professor Description Size Mfg Part Number Used/Scraped 12:49 BIOTRONIK LEAD, SOLIA 60 53 PRO MRI * [id number] Used 12:57 BIOTRONIK LEAD, SOLIA S PRO MRI * [id number] Used 13:05 BIOTRONIK PACEMAKER, ELUNA 8 ANANYA DDDR [id number] Used [id number] 12:13 MEDLINE INDUSTRIES SUTURE, STRIP PLUS 1/2" * Used *[id number] 12:13 MEDLINE PACER ADHESIVE, MASTISOL 2/3CC 2/3CC 0523-48 Used 12:13 MEDLINE PACER DIETZ, LIMB * 2530 *[id number] Used [id number] 12:13 MEDLINE PACER PACK, PACER CUSTOM * Used *[id number] 12:13 MEDLINE PACER PEN, SKIN DUAL W/ RULER * Used *[id number] 12:28 Sheology PACER SAFE SHEATH, FR7, 13CM FR 7 [id number] Used 12:28 Sheology PACER SAFE SHEATH, FR7, 13CM FR 7 CLS-1007 Used 12:19 Needle Sponge Count 2 22 Used 12:19 Needle Sponge Count 3 3 Used 12:19 Needle Sponge Count 30 1 Used 12:37 NYCOMED OMNIPAQUE, 350 MG, 50ML 50ML [id number] Used [id number] SUTURE, 3-0 VICRYL [SH] ([id number]) SUTURE, 3-0 VICRYL [SH] ([id number]) SUTURE, 4-0 MONOCRYL [PS2] (Y496G) [id number] 12:13 [employer]ER [employer] BLANKET,WARM AIR CCL * Used *[id number] [facility] PAD, ELECTROSURGICAL 12:13 * [id number] *[id number] Used SURGICAL GROUNDING ORANGE [id number] 12:13 [employer]OLL [employer] KAMI. / * Used *24732 Equipment Model, Serial, Lot Number and Expiration Data Description Model Number Serial Number Lot Number Expiration Date LEAD, SOLIA 60 53 PRO MRI [id number] 06-29-2019 LEAD, SOLIA S PRO MRI [id number] [id number] 07-28-2019 PACEMAKER, ELUNA 8 ANANYA [id number] [id number] 11-26-2018 09/12/2017 1:37:44 PM Financial #: [id number] 3 of 7 Patient Name: CECY BENNETT Study #: [id number] Initial MD: Derek Gonsalves Date of : 1950 Study Date: 8 Insurance Information Insurance Payor Medicare, Private Health Insurance Third Democrat Third Democrat Number [employer] CHOICE PPO HUMCRPPO History: Allergies Allergy Reaction No Known Allergies Medication Medication Total Dose (Bolus/Oral) Medication Total Dosage/Unit 2% XYLOCAINE 50 mL Medications (Bolus/Oral) Medication Time Given Dosage/Unit Administered By Reason 2% XYLOCAINE 09/12/2017 12:35:40 PM 50 mL Anesthesia, RINK RAT 50 mL 2% XYLOCAINE given in lab by Anesthesia, RINK RAT via Subcutaneous. Ordered by Derek Gonsalves. right upper chest Medication (Drip) Medication Time Given Dosage/Unit Concentration/Unit Diluent (ml) Solution IV Solutions 09/12/2017 12:12:05 PM 0 mL (IV) 500 NaCl .9 IV Solutions given in lab by Anesthesia, RINK RAT in Right Wrist via Peripheral IV. Pump/Drip Flow = 0 ml /hr using NaCl .9. Ordered by Derek Gonsalves. 09/12/2017 1:37:44 PM Financial #: [id number] 4 of 7 Patient Name: CECY BENNETT Study #: [id number] Initial MD: Derek Gonsalves Date of : 1950 Study Date: 09/12/2017 Final Case Assessment Cardiovascular HR Rhythm Chest Pain 68 A FLUTTER 0 Edema Present Skin color Skin None Normal Warm Dry Circulatory - Right Pulses Dorsalis Pedis 1 Scale (0,1,2,3,4,d) Circulatory - Left Pulses Dorsalis Pedis 1 Scale (0,1,2,3,4,d) Neurological State Oriented to time-place- Alert Moves all extremities person Respiration - General Respiration Rate SpO2 (%) O2 (lpm) (B/min) 18 98 2 Chronological Log Time Study Chronological Log 11:45:22 Patient arrived via Bed. 11:45:34 Anesthesia at bedside. Assumes care of patient. 12:11:32 Consent signed by the physician and the patient and verified by the Electronics Technology Instructor staff. 12:11:33 Pre-op and post- op instructions given; patient acknowledges understanding of instructions. 12:11:44 Patient has been NPO for More than 6Hrs. 12:11:51 Skin Breakdown- left upper chest bandage applied from previous device extraction 12:11:54 Patient Warmer Placed on the Table. 12:11:57 Disposable Defibrillator Pads Placed On Patient. 12:11:58 Chitra Prominences Protected 12:12:02 A # 20 IV was noted in the Hand (left). Grade = 0 IV Solutions given in lab by Anesthesia, RINK RAT in Right Wrist via Peripheral IV. Pump/Drip Flow = 0 ml/hr using NaCl .9. 12:12:05 Ordered by Derek Gonsalves. 12:12:06 History and physical on the chart or being dictated. 09/12/2017 1:37:44 PM Financial #: [id number] 5 of 7 Patient Name: CECY BENNETT Study #: [id number] Initial MD: Derek Gonsalves Date of : 1950 Study Date: 09/12/2017 12:12:20 Bovie ground pad applied to: abdomen 12:12:25 2% CHLORHEXIDINE GLUCONATE WASH AND NASAL SWIPE DONE PRIOR TO PROCEDURE. 12:12:31 Pre-procedure assessment data was performed with the previous procedure. First Sponge And Instrument Count Done by Camelia López RCIS. 12:12:33 Hypo's: 3, Sponges: 30, Bovie/scratch: 2 Sutures: 6, Blades: 2, Instruments: 26, Syveck Patches: 0 verified by stanislav CERVANTES 12:13:50 A # 20 IV was noted in the Wrist (right). Grade = 0 12:15:08 Reference ECG taken Time Out. Correct patient, procedure, procedure equipment, site and side verified with physicia n present. Time 12:33:29 concurred by MD, individual staff and RINK RAT. Time Out #2 - Consents verified, patient in correct position, all results are labled and displa yed, safety precautions 12:33:31 taken, antibiotics administered. Time out concurred by MD, individual staff and RINK RAT in procedu re 12:33:32 Case Start 12:35:40 50 mL 2% XYLOCAINE given in lab by Anesthesia, RINK RAT via Subcutaneous. Ordered by Shikha Gonsalves. right upper chest 12:36:19 The Subclav. Vein (Rt) was manually injected with 6 cc's of contrast. OMNIPAQUE, 350 MG, 50 ML 50ML used. 12:39:09 Vascular access was attempted in the Subclav. Vein (Rt). holding manual pressure 12:44:11 Vascular access was obtained in the Subclav. Vein (Rt). 12:44:14 A SAFE SHEATH, FR7, 13CM FR 7 was advanced into the Subclav. Vein (Rt) using the Modified S eldinger technique. 12:45:38 A SAFE SHEATH, FR7, 13CM FR 7 was advanced into the Subclav. Vein (Rt) using the Modified S eldinger technique. 12:48:45 A LEAD, SOLIA 60 53 PRO MRI * was inserted and positioned in the RV. 12:49:54 Lead placement verified under fluoroscopy 12:49:56 The RV lead impedance and threshold being tested. 12:57:12 A LEAD, SOLIA S PRO MRI * was inserted and positioned in the RA. 12:57:26 Lead placement verified under fluoroscopy 12:57:30 The Atrial lead impedance and threshold is being tested. 13:03:47 Surgical Incision Made. 13:03:50 A pocket was created at the R Upper Chest. 13:05:05 A PACEMAKER, ELUNA 8 DR-T DDDR was connected and placed in the pocket. second Sponge And Instrument Count Done by Camelia López RCIS. 13:08:43 Hypo's: 3, Sponges: 30, Bovie/scratch: 2 Sutures: 6, Blades: 2, Instruments: 26, Syveck Patches: 0 verified by stanislav CERVANTES 13:20:52 Pocket flushed with antibiotic solution 13:26:29 The pocket was closed. final Sponge And Instrument Count Done by Camelia López RCIS. 13:27:59 Hypo's: 3, Sponges: 30, Bovie/scratch: 2 Sutures: 7, Blades: 2, Instruments: ~INSTRU~, Syveck Patches: 0 verified by [facility] rt one suture added 13:28:33 Implant Procedure was performed. 13:28:41 A PPM Implant . (Dual) 13:28:48 Case End 13:28:50 Bedside Report will be given. 09/12/2017 1:37:44 PM Financial #: [id number] 6 of 7 Patient Name: CECY BENNETT Study #: [id number] Initial MD: Derek Gonsalves Date of : 1950 Study Date: 09/12/2017 13:28:50 [facility]MC called. Spoke to SHIPPING LEAD 13:29:06 Steri-strips and a sterile dressing applied to site. Assessment: Final Case, HR=68 BPM, Rhythm=A FLUTTER, Chest Pain=0, Edema=None, Color=Normal, S kin = Warm, Dry Right Pulses: Noel Ped=1 13:29:13 Left Pulses: Noel Ped=1 Neurological: State=Alert, Ox3, CASTANEDA Respiration: Resp=18 B/min, SpO2=98 %, O2=2 lpm 13:35:38 A sling was placed on the affected arm. End Study - Contrast Media Used In Study Contrast Total Opened (mL) Total Used (mL) Total Wasted (mL) Omnipaque 10 10 0 End Study - Radiation Exposure Fluoro Time (minutes) 8.6 End Study - Patient Disposition Complications Transferred To Interventional Outcome No Telemetry Bed successful 09/12/2017 1:37:44 PM Financial #: [id number]
--- NOTE | 2017-09-12 13:42 | MP ---
cc: Derek Gonsalves MD DATE OF OPERATION: 09/12/2017 PROCEDURE PERFORMED: Dual chamber permanent pacemaker implantation via the right subclavian vein. OPERATIVE NOTE: The patient was brought to the operating suite in a fasting state after having signed informed consent. The right upper chest was prepped and draped as per policy and anesthetized with 1% lidocaine. A transverse incision was made inferior to the right clavicle and using blunt dissection, a subcutaneous pocket was formed down to the pectoralis fascia. After administration of contrast through a right arm peripheral IV, central venous access was obtained twice via the right subclavian vein using modified seal modified Seldinger technique. Over the more lateral guidewire, a 7-Upper Sorbian sheath was placed and through this sheath, a ventricular active fixation lead was introduced and its tip positioned in the right ventricular apex where a good current of injury, stimulation threshold (0.5 volts) and sensitivity (9.6 millivolts) were demonstrated. This lead was secured into place using 2-0 silk ties down to the pectoralis fascia. Over the remaining guidewire, another 7-Upper Sorbian sheath was placed and through this sheath, an atrial active fixation lead was introduced and its tip positioned in the right atrial appendage where a good current of injury was demonstrated. The patient is in an atrial flutter rhythm, so a stimulation threshold could not be obtained. Sensitivity is measured at 2.3 millivolts. Fluoroscopically, the lead appears to be in good position. This lead was secured into place using 2-0 silk ties down to the pectoralis fascia. The leads were then connected to the pacemaker generator, which is a Biotronik Eluna device. The leads and the generator were placed into the subcutaneous pocket, which was flushed with vancomycin solution. The pocket was closed using 3-0 Vicryl interrupted stitches in 2 layers to close the subcutaneous tissue and then 4-0 Monocryl running stitch to close the subcuticular tissue. Overlapping Steri-Strips and a dressing were applied. There were no apparent immediate complications. A portable chest x-ray is pending at the time of this dictation. CONCLUSIONS: Successful dual-chamber permanent pacemaker implantation via the right subclavian vein using a Biotronik Eluna pacemaker generator. MD SHIRA Brito/LUBA , 01:30 PM , 01:41 PM MTDD
[2017-09-12] MEDS ORDERED: MIDAZOLAM HCL 2 MG/2 ML VIAL ONE (14:09)
--- NOTE | 2017-09-12 15:19 | RADRPT ---
EXAM DATE/TIME: 09/12/2017 14:16 [place] COMPARISON: CHEST SINGLE AP, May 16, 2017, 14:59. INDICATIONS : Evaluate for right sided pneumothorax. Shortness of breath. MEDICAL HISTORY : Chronic obstructive pulmonary disease. Atrial flutter. SURGICAL HISTORY : Pacemaker. Bilateral hips surgery. ENCOUNTER: Initial ACUITY: 1 day PAIN SCORE: 0/10 LOCATION: Bilateral chest FINDINGS: A single view of the chest demonstrates the lungs to be symmetrically aerated without evidence of mas s, infiltrate or effusion. The cardiomediastinal contours are unremarkable. Osseous structures are intact. CONCLUSION: No acute disease. Kojo Abarca MD FACR on September 12, 2017 at 15:16 Board Certified Radiologist. This report was verified electronically.
--- NOTE | 2017-09-12 17:02 | HHI.FF ---
Infusion Therapy Location of Infusion Therapy: Home Health Care IV Infusion Order Patient Information Patient Weight 84.5 kg Diagnosis: Diagnosis infection of pacemaker wire/pocket MRSA. Coded Allergies: No Known Allergies (Unverified , 09/06/17) Administer Medication Vancomycin q 12 hours 1750mg IV Stop Treatment: October 18, 2017 Additional Information Venous access: PICC Line Additional Instructions [x] Peripheral flush and dressing changes per protocol [x] Implanted port and central a class lineman: * Implanted port: 10 ml Normal Saline followed by 5 ml Heparin 100 units/ml Heparin flush after each use and monthly to maintain. [] May leave port accessed during therapy. [] May leave peripheral site accessed for duration of therapy. [x] If patient has SOB or respiratory distress, check oxygen saturation. If less than 90% or clinical signs of respiratory distress, administer oxygen at 2 L/min. via nasal cannula and notify physician. [x] Anaphylaxis/Reaction orders: * Stop infusion. * Keep IV line open with saline flush. * Notify physician. * Monitor vital signs every 15 minutes until symptoms resolve. * Check Oxygen saturation; Oxygen at 2 L/min. via nasal cannula if less than 90% or clinical signs of respiratory distress. * Administer diphenhydramine (Benadryl) 25 mg IV STAT, (unless patient has received as pre-med). May repeat once, if necessary. * Solu-Cortef 250 mg IVP over 30-60 seconds, use 100 mg vials for each dissolution. * Epinephrine (1mg/1 ml) 0.3 mg subcutaneously or IVP now with any signs of respiratory distress. * Check with physician for new additional pre-med orders if patient is re- challenged or re-treated. [x] May remove PICC line when treatment complete, after confirming with Physician. [x] If the patient is admitted to the hospital, the ED, or transferred via EVAC , complete transfer form including medication reconciliation order sheet. Laboratory Tests Weekly Labs: BMP, Vancomycin Trough Additional Information BMP Q 3 days while on vancomycin. Follow up with Dr Hooks in 1 week. Fax lab results to Dr. Hooks. Candido Glod MD Sep 12, 2017 17:02
[2017-09-12] MEDS: ACETAMINOPHEN/HYDROcodone 325 MG/5 MG TAB PO PRN ×2 (17:06→21:14)
[2017-09-12] MEDS: VANCOMYCIN INJ 2,000 MG in SODIUM CHLORID 0.9% 500 ML INJ 500 ML IV SCH (20:33)
[2017-09-13] VITALS (10 sets, daily range): BP systolic 122–148; BP diastolic 55–71; PULSE 80–83; RESP 20–24; TEMP 98.2–99; O2SAT 90–98
[2017-09-13] MEDS: ACETAMINOPHEN/HYDROcodone 325 MG/5 MG TAB PO PRN ×2 (01:22→14:45)
[2017-09-13] MEDS: SODIUM CHLOR 0.9% 1000 ML INJ 1,000 ML IV SCH ×2 (06:33→10:40)
--- NOTE | 2017-09-13 08:25 | PD.CARD.PN ---
Subjective Subjective Remarks No CP, dyspnea, dizziness, palpitations. Objective Medications Item Value Date Time Aspirin 81 mg 09/07/17899 (Ecotrin Ec) DAILY/PO 09/12/17899 Furosemide 40 mg 09/07/17899 (Lasix) DAILY/PO 09/12/17900 Metoprolol 50 mg 09/06/17 2100 Tartrate BID/PO 09/12/172032 (Lopressor) Current Medications Medications (Trade) Dose Ordered Sig/Srikanth Route Start Time Stop Time Status Last Admin (Proair Hfa Inh) 1 puff Q4H PRN INH 09/06/17 13:00 09/12/17 09:05 (Ecotrin Ec) 81 mg DAILY PO 09/07/17 09:00 09/12/17 09:00 (Symbicort 160-4.5 Mcg Inh) 1 puff Q12HR INH 09/06/17 21:00 09/12/17 09:00 (Lasix) 40 mg DAILY PO 09/07/17 09:00 09/12/17 09:01 (Atrovent Neb) 0.5 mg Q6HR NEB PRN NEB 09/06/17 13:00 (Lopressor) 50 mg BID PO 09/06/17 21:00 09/12/17 20:33 (Ultram) 50 mg Q4H PRN PO 09/06/17 13:00 09/09/17 11:48 (Flonase Baron Spr) 1 spray BID EACH NARE 09/06/17 21:00 09/12/17 09:02 (Restoril) 30 mg HS PRN PO 09/06/17 13:00 09/11/17 01:16 Pharmacy Profile Note 0 ml @ 0 mls/hr UNSCH OTHER 09/06/17 16:15 Miscellaneous Information Patient in critical care unit? Ass... Q361D .XX 09/06/17 16:45 (Xanax) 0.25 mg TID PO 09/09/17 13:00 09/12/17 19:33 (Morphine Inj) 5 mg Q4H PRN IV PUSH 09/09/17 12:00 (Vanduser 5-325 Mg) 1 tab Q4H PRN PO 09/09/17 12:00 09/13/17 01:22 (Rifampin) 300 mg Q12HR PO 09/09/17 21:00 09/12/17 20:33 Sodium Chloride 1,000 ml @ 150 mls/hr Q6H40M IV 09/12/17 08:00 09/13/17 06:33 (Betadine 5% Antisepsis Kit) 1 applic ONCE TOPICAL 09/11/17 08:00 09/14/17 07:59 (Bactroban Nasal 2% Oint) 1 applic ONCE EACH NARE 09/11/17 08:00 09/14/17 07:59 09/11/17 17:46 (Chlorhexidine 2% Cloth) 1 pack ONCE TOPICAL 09/11/17 08:00 09/14/17 07:59 Cefazolin Sodium 1000 mg/Sodium Chloride 100 ml @ 200 mls/hr [employer] IV 09/11/17 08:15 09/14/17 08:14 09/12/17 08:30 Vancomycin HCl 2000 mg/Sodium Chloride 520 ml @ 250 mls/hr Q12H IV 09/12/17 20:00 09/12/17 20:33 Miscellaneous Information SPECIFIC LAB TO BE FUENTES... ONCE ONCE .XX 09/14/17 07:45 09/14/17 07:46 Vital Signs / I&O Vital Signs Date Time Temp Pulse Resp B/P (MAP) Pulse Ox O2 Delivery O2 Flow Rate FiO2 09/13/17 06:00 81 09/13/17 04:00 98.2 80 23 122/55 (77) 92 09/13/17 04:00 80 09/13/17 02:23 16 09/13/17 02:00 81 09/13/17 00:07 80 09/13/17 00:00 99.0 80 24 133/66 (88) 92 09/12/17 22:30 80 09/12/17 20:00 98.9 81 16 125/70 (88) 92 09/12/17 20:00 81 09/12/17 11:00 80 18 133/76 (95) 94 09/12/17 11:00 80 09/12/17 10:00 81 09/12/17 10:00 81 32 128/78 (95) 96 09/12/17 09:00 82 09/12/17 09:00 82 21 143/73 (96) 94 I/O 4/16/18 09/12/17 09/12/17 09/13/17 09/13/17 09/13/17 07:00 15:00 23:00 07:00 15:00 23:00 Intake Total 240 ml 3030 ml 1760 ml Output Total 1000 ml 1000 ml Balance -760 ml 3030 ml 760 ml Intake Oral 240 ml 480 ml 240 ml IV Total 2550 ml 1520 ml Output Urine Total 1000 ml 1000 ml Stool Total 0 ml # Voids 4 6 3 # Bowel Movements 0 0 Physical Exam GENERAL: Well developed, well nourished. No acute distress. HEENT: Jugular venous pressure is normal. CHEST: Diminished breath sounds. CARDIAC: Regular rate and rhythm without S3, S4, or murmur. Pacer site clean, dry, intact, no hematoma. ABDOMEN: Soft, nontender, no hepatosplenomegaly. Bowel sounds present. EXTREMITIES: No clubbing, cyanosis, or edema. Laboratory Laboratory Tests Test 09/12/17 09:45 Creatinine 0.44 MG/DL Estimat Glomerular Filtration Rate 191 ML/MIN Vancomycin Level Trough 12.3 MCG/ML Imaging Last 24 hours Impressions Chest X-Ray 09/12/17 1334 Signed Impressions: Service Date/Time: Tuesday, September 12, 2017 14:16 - CONCLUSION: No acute disease. 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 REC await placement of PICC line under fluoro discharge today on IV antibiotics as per Dr. Gold, 1 week f/u with me (2) Paroxysmal atrial flutter ICD Codes: I48.92 - Unspecified atrial flutter Status: Chronic Plan: Stable overnight. Mostly in atrial flutter now, with controlled HR's. Thromboembolic risk low. To continue daily baby aspirin and beta rashida. (3) Peripheral vascular disease ICD Codes: I73.9 - Peripheral vascular disease, unspecified Status: Chronic Plan: Severe, bilateral PVD at multiple levels on recent CTA. No rest pain. To address and treat once pacemaker issues resolved. Code Status full code Discussed Condition With patient Problem Qualifiers (1) Infection of pacemaker pocket: Qualified Codes: T82.7XXA - Infection and inflammatory reaction due to other cardiac and vascular devices, implants and grafts, initial encounter Derek Gonsalves MD Sep 13, 2017 08:25
[2017-09-13] MEDS: ALPRAZolam 0.25 MG TAB PO SCH ×2 (09:00→13:00)
[2017-09-13] MEDS: BUDESONIDE-FORMOTEROL 160/4.5 MCG INHALER INH SCH (09:00)
[2017-09-13] MEDS: FLUTICASONE PROPIONATE 50 MCG/ACT 16 GM NASAL SPRAY EACH NARE SCH (09:00)
--- NOTE | 2017-09-13 10:04 | PD.RAD ---
Radiology Post PICC Prog Note Pre Procedure Diagnosis: (1) Infection of pacemaker pocket Post Procedure Diagnosis: (1) Infection of pacemaker pocket Procedure: Left PICC line placement Procedure Date: Sep 13, 2017 Supervising Radiologist Gregorio Macario Proceduralist/Assist: Francesco Greenfield, RT(R), Laurie Arevalo, RT(R) Device Side: Right Tamazight: 4 single lumen cm: 47 Catheter: Power PICC Plan of Activity Patient to Unit: Nursing Unit Patient Condition: Good PICC line can be used immediately Gregorio Macario MD Sep 13, 2017 10:04
[2017-09-13] MEDS: METOPROLOL TARTRATE 50 MG TAB PO SCH (10:55)
[2017-09-13] MEDS: ASPIRIN EC 81 MG TABEC PO SCH (10:55)
[2017-09-13] MEDS: RIFAMPIN 150 MG CAP PO SCH (10:55)
[2017-09-13] MEDS: VANCOMYCIN INJ 2,000 MG in SODIUM CHLORID 0.9% 500 ML INJ 500 ML IV SCH (10:55)
[2017-09-13] MEDS: FUROSEMIDE 40 MG TAB PO SCH (10:55)
--- NOTE | 2017-09-13 14:16 | RADRPT ---
EXAM DATE/TIME: 09/13/2017 13:40 [facility] COMPARISON: CHEST SINGLE AP, September 12, 2017, 14:16. INDICATIONS : PICC line placement. MEDICAL HISTORY : Chronic obstructive pulmonary disease. Atrial flutter SURGICAL HISTORY : Pacemaker. Bilateral hip surgery. ENCOUNTER: Subsequent ACUITY: 4 - 6 days PAIN SCORE: 0/10 LOCATION: Bilateral chest FINDINGS: A single view of the chest demonstrates the lungs to be symmetrically aerated without evidence of mas s, infiltrate or effusion. The cardiomediastinal contours are unremarkable. Left-sided PICC line wit h tip in the cavoatrial junction. Right-sided pacemaker unchanged. Mild cardiomegaly. Osseous struct ures are intact. CONCLUSION: 1. Adequate placement left-sided PICC line. 2. No acute cardiopulmonary disease. Theodore Crenshaw MD on September 13, 2017 at 14:13 Board Certified Radiologist. This report was verified electronically.
[2017-09-14] MEDS ORDERED: PHARMACY ORDERED LAB ONE (07:45)
--- NOTE | 2017-09-14 10:39 | RADRPT ---
EXAM DATE/TIME: 09/13/2017 09:00 [facility] COMPARISON: No previous studies available for comparison. INDICATIONS : Patient with pacemaker pocket infection in need of PICC line placement for IV antibiotics. MEDICAL HISTORY : COPD, Paroxysmal atrial flutter, MRSA SURGICAL HISTORY : Biotronik pacemaker implant, Bilateral hip replacement ENCOUNTER: Initial ACUITY: 1 week PAIN SCORE: 0/10 FLUORO TIME: 1.2 minutes IMAGE SERIES: 1 ACCESS: Left basilic vein MEDICATION(S): 1.) 200 units Heparin IV DEVICE(S): 1.) 4 Divehi single lumen 47 cm Xcela Power PICC PROCEDURE : 1. Ultrasound guidance for venous catheterization. 2. Fluoroscopic guidance. 3. Ultrasound & fluoroscopic guided central venous Power PICC line placement. The risks, benefits and alternatives to the procedure were explained and verbal and written consent w as obtained. The site was prepped in sterile fashion. Full sterile technique was used, including ca p, mask, sterile gloves and gown and a large sterile sheet. Hand hygiene and 2% chlorhexidine prep w as utilized per protocol for cutaneous antisepsis with appropriate dry time for site. Sterile gel a nd sterile probe cover were utilized for ultrasound guidance. The skin and subcutaneous tissues wer e infiltrated with local anesthetic solution. Under direct ultrasound guidance, a suitable vein was accessed and a measuring guidewire was introduc ed and positioned in the central venous system. The ultrasound images depicting access guidance were saved and stored to PACS for permanent record. A Power Injectable PICC line was cut to prescribed length and introduced, positioned with tip at the cavoatrial junction level. The line was flushed and secured per protocol. CONCLUSION: 1. Uncomplicated central venous Power PICC line placement. 2. The PICC line can be used immediately. Gregorio Macario MD on September 14, 2017 at 10:37 Board Certified Radiologist. This report was verified electronically.
== END 2017-09-13 16:15 | disposition home health service (06) | DRG 243 ==
LOC: HDOC 07:50 → HDIC 07:51 → HIMW 13:06 → HDOC 15:50 → HIMW 15:50
PROVIDERS: ADMIT Internal Medicine Cardiovascular Disease; ATTEND Internal Medicine Cardiovascular Disease
PROC: 0JPT0PZ Removal of Cardiac Rhythm Related Device from Trunk Subcutaneous Tissue and Fascia, Open Approach (ICD-10-PCS; 2017-09-06)
PROC: 02PA0MZ Removal of Cardiac Lead from Heart, Open Approach (ICD-10-PCS; 2017-09-06)
PROC: 5A1223Z Performance of Cardiac Pacing, Continuous (ICD-10-PCS; 2017-09-06)
PROC: 02HK3JZ Insertion of Pacemaker Lead into Right Ventricle, Percutaneous Approach (ICD-10-PCS; 2017-09-12)
PROC: 02H63JZ Insertion of Pacemaker Lead into Right Atrium, Percutaneous Approach (ICD-10-PCS; 2017-09-12)
PROC: 0JH606Z Insertion of Pacemaker, Dual Chamber into Chest Subcutaneous Tissue and Fascia, Open Approach (ICD-10-PCS; principal; 2017-09-12 11:00)
PROC: 05HC33Z Insertion of Infusion Device into Left Basilic Vein, Percutaneous Approach (ICD-10-PCS; 2017-09-13)
DX: T82.7XXA Infection and inflammatory reaction due to other cardiac and vascular devices, implants and grafts, initial encounter (principal); I48.92 Unspecified atrial flutter; I49.5 Sick sinus syndrome; J44.9 Chronic obstructive pulmonary disease, unspecified; Z86.14 Personal history of Methicillin resistant Staphylococcus aureus infection; Z96.643 Presence of artificial hip joint, bilateral; Y83.1 Surgical operation with implant of artificial internal device as the cause of abnormal reaction of the patient, or of later complication, without mention of misadventure at the time of the procedure; F17.210 Nicotine dependence, cigarettes, uncomplicated; Z79.82 Long term (current) use of aspirin; M19.90 Unspecified osteoarthritis, unspecified site; I73.9 Peripheral vascular disease, unspecified
CPT/HCPCS: 33208; 33210; 33233; 33235; 36569; 71045; 76937; 77001; 78472; 80048; 80202; 82565; 85025; 85610; 85730; 87040; 87070; 87071; 87077; 87186; 87205; 87641; 93005; 93306; A9560; C1751; C1785; C1898; J0690; J1642; J2250; J2370; J3370; J7030; J7040; J7050; J7120